=== PATIENT | female | born 1960 | race Caucasian/White ===

== ENCOUNTER 2016-04-25 19:43 | Inpatient (IN) | payer MEDICARE, MEDICAID ==
[~2016-04-25] VITALS: Ht 165.1 cm; Wt 100.0 kg
[2016-04-25 19:45] VITALS: Ht 165.1 cm; Wt 100.0 kg
[2016-04-25] MEDS ORDERED: ONDANSETRON 4 MG INJ IV STA (21:12)
[2016-04-25] MEDS ORDERED: HYDROmorphONE 1 MG/ML SYG IV STA ×2 (21:12→22:44)
[2016-04-25 21:48] LABS: BASOPHILS % 0.3 % (0.0-2.0); EOSINOPHILS # 0.1 10^3/ul (0.0-0.5); EOSINOPHILS % 1.1 % (0.0-7.0); HEMATOCRIT 29.9 % (37.0-47.0); LYMPHOCYTES # 2.4 10^3/ul (0.8-2.9); LYMPHOCYTES % 24.9 % (15.0-51.0); MEAN CORPUSCULAR HEMOGLOBIN 31.4 pg (29.0-33.0); MEAN CORPUSCULAR HGB CONC 33.6 g/dl (32.0-37.0); MEAN CORPUSCULAR VOLUME 93.4 fl (82.0-101.0); MEAN PLATELET VOLUME 7.9 fl (7.4-10.4); MONOCYTE # 0.7 10^3/ul (0.3-0.9); MONOCYTES % 7.1 % (0.0-11.0); NEUTROPHIL # 6.4 10^3/ul (1.6-7.5); NEUTROPHILS % 66.6 % (39.0-77.0); PLATELET COUNT 257 10^3/UL (140-440); RED CELL DISTRIBUTION WIDTH 15.1 % (11.5-14.5); UNCORRECTED WBC 9.6 10^3/ul (4.8-10.8); WHITE BLOOD COUNT 9.6 10^3/ul (4.8-10.8)
[2016-04-25 21:51] LABS: CONDITION 1; LH ANALYZER COMMENTS 1
[2016-04-25 22:02] LABS: CHLORIDE 104 mmol/L (97-110); SODIUM 139 mmol/L (135-144)
[2016-04-25 22:04] LABS: ALANINE AMINOTRANSFERASE 94 IU/L (13-69); ALKALINE PHOSPHATASE 157 IU/L (42-121); ANION GAP 14 (8-16); ASPARTATE AMINO TRANSFERASE 38 IU/L (15-46); BILIRUBIN,INDIRECT 0.5 mg/dl (0-1.1); BILIRUBIN,TOTAL 0.5 mg/dl (0.2-1.3); BLOOD UREA NITROGEN 23 mg/dl (7-20); CARBON DIOXIDE 25 mmol/L (21-31); CREATININE 0.79 mg/dl (0.44-1.00); TOTAL PROTEIN 8.4 g/dl (6.1-8.1)
[2016-04-25 22:05] LABS: CALCIUM 9.4 mg/dl (8.4-10.2); GLUCOSE 97 mg/dl (70-220); INR 1.27; PT RATIO 1.3
--- NOTE | 2016-04-25 22:08 | RADRPT ---
PROCEDURE: XR Chest. CLINICAL INDICATION: Abdominal pain. TECHNIQUE: AP portable views of the chest were obtained. COMPARISON: None available FINDINGS: The cardiomediastinal silhouette is within normal limits. There is mild atherosclerosis of the thora cic aorta without evidence of aneurysm formation. There are minimal linear areas of subsegmental at electasis in the right lung base. There is a right IJ Port-A-Cath in place with tip at the cavoatri al junction. No signs of pleural fluid or pneumothorax are seen. The osseous structures and soft tis sues are unremarkable. IMPRESSION: 1. No evidence for active cardiopulmonary disease. 2. Mild subsegmental atelectasis involving the right lung base. 3. Mild atherosclerosis of the thoracic aorta. RPTAT: HGAS .Hung Cuellar MD, Date Time Electronically viewed and signed by .Hung Cuellar MD, on 04/25/2016 22:07 .S/
[2016-04-25 22:18] LABS: TROPONIN-I < 0.012 ng/ml (0.00-0.12)
[2016-04-25] MEDS ORDERED: SOD CHLORIDE 0.9% 1,000 ML IV STA (22:27)
--- NOTE | 2016-04-25 22:29 | RADRPT ---
PROCEDURE: CT Abdomen and pelvis without contrast. CLINICAL INDICATION: Abdominal pain. TECHNIQUE: CT scan of the abdomen and pelvis was performed on the [employer] LightSpeDeep Driver 6 4 slice VCT scanner. Contiguous axial images using 2.5 mm slice thickness were obtained from the benja ng bases to the ischial tuberosities without intravenous contrast. Coronal and sagittal reformatted images were also obtained. Images were reviewed on the PACS workstation. One or more of the following dose reduction techniques were used: - Automated exposure control. - Adjustment of the mA and/or kV according to patient size. - Use of iterative reconstruction technique. Exam CTD/vol = 22.58 mGy. Total exam DLP = 1247.39 mGy-cm. COMPARISON: None. FINDINGS: Evaluation of the lung bases demonstrates multiple soft tissue nodules along the right hemidiaphragm measuring up to 2 cm. There is mild bibasilar atelectasis. Bilateral breast implants are present. Abdomen: The liver is normal in size. There is a poorly defined hypodense mass within the posterio r segment of the right lobe of the liver measuring 3.5 x 3.1 cm with extrahepatic extension measurin g 3.4 x 4.4 cm. There is no dilatation of the biliary tree. The patient is status post cholecystect dotty. There is a hypodense lesion within the medial spleen measuring 2.9 x 3.1 cm. There are multip le poorly defined masses within the gastrohepatic space with a cluster measuring 4.7 x 5.6 cm. Ther e is a mass within the lesser sac between the stomach and pancreas measuring 2.6 x 4.5 cm. There is a mass within the left pericolic gutter measuring 4.3 x 3.6 cm. The pancreas and bilateral adrenal glands are within normal limits. Bilateral kidneys are normal in size with no contour deforming ma ss identified. There is no radiopaque renal or ureteral calculus identified. There is no hydroneph rosis or hydroureter. The abdominal aorta is of normal caliber with mild scattered atherosclerotic calcifications. There is a moderate midline upper abdominal wall ventral hernia containing multiple loops of small b owel. There is no bowel obstruction or free air. The appendix is not visualized. There is no dive rticulosis or diverticulitis. There is no ascites. Pelvis: The bladder is unremarkable. The uterus is absent. There are multiple soft tissue masses within the pelvis with the largest measuring 4.7 x 3.5 cm. There is no significant pelvic adenopath y or free fluid. Evaluation of the osseous structures demonstrates no suspicious lytic or blastic lesion. IMPRESSION: Multiple soft tissue masses within the abdomen and pelvis consistent with metastatic disease. Soft tissue mass within the right upper abdomen involving the posterior segment of the right lobe of the liver. Multiple soft tissue nodules along the right hemidiaphragm consistent with metastatic disease. Hypodense mass within the spleen suspicious for metastatic disease. Moderate midline upper abdominal wall ventral hernia containing multiple loops of small bowel. Ther e is no bowel obstruction. Status post cholecystectomy. .Galileo Hammer MD, Date Time Electronically viewed and signed by .Galileo Hammer MD, MD on 04/25/2016 22:29 .T/
[2016-04-25] MEDS ORDERED: HYDROmorphONE 1 MG/ML SYG IV ONE (22:38)
--- NOTE | 2016-04-25 22:55 | ERA ---
ER Documentation Chief Complaint Date/Time DATE: 04/25/16 TIME: 22:52 Chief Complaint hx of colon ca, last 4 days feels perirectal pressure with rectal bleeding. HPI Patient is a 55-year-old female with ovarian cancer and hypertension who presents with "cancer". Patient has ovarian cancer and had found out a month ago that her cancer has spread. She has severe pain in her anus and stomach. She was told to go to the emergency department by Dr. Perez who is her oncologic surgeon. She has 2 hernias and says these are hurting. She wants to be admitted to the hospital. She has no treatment as of yet. Upon review of old medical records this is the patient's first visit to the emergency department here at [facility]. ROS All systems reviewed and are negative except as per history of present illness. Allergies Allergies: Coded Allergies: No Known Allergy (Unverified , 04/25/16) PMhx/Soc History of Surgery: Yes (OVARIAN AND COLON RESECTION) Anesthesia Reaction: No Hx Neurological Disorder: No Hx Respiratory Disorders: No Hx Cardiac Disorders: Yes (HTN) Hx Psychiatric Problems: No Hx Miscellaneous Medical Probl: Yes (OVARIAN CA WITH ABD AND KIDNEY METS) Hx Alcohol Use: No Hx Substance Use: No Hx Tobacco Use: No Smoking Status: Never smoker FmHx Family History: No diabetes Physical Exam Vitals Vital Signs Date Time Temp Pulse Resp B/P Pulse Ox O2 Delivery O2 Flow Rate FiO2 04/25/16 21:46 98.0 71 20 173/93 100 Room Air 04/25/16 19:45 98.2 78 26 183/79 99 Physical Exam Const: Moderate distress secondary to pain Head: Atraumatic Eyes: Normal Conjunctiva ENT: Normal External Ears, Nose and Mouth. Neck: Full range of motion..~ No meningismus. Resp: Clear to auscultation bilaterally Cardio: Regular rate and rhythm, no murmurs Abd: Diffuse abdominal pain with guarding Skin: No petechiae or rashes Back: No midline or flank tenderness Ext: No cyanosis, or edema Neur: Awake and alert Psych: Normal Mood and Affect Result Diagram: 04/25/16213204/25/162132 Results 24 hrs Laboratory Tests Test 04/25/16 21:33 Activated Partial Thromboplast Time 36.0Sec Alanine Aminotransferase (ALT/SGPT) 94IU/L Albumin 4.0g/dl Albumin/Globulin Ratio 0.90 Alkaline Phosphatase 157IU/L Anion Gap 14 Aspartate Amino Transf (AST/SGOT) 38IU/L Basophils # 0.010^3/ul Basophils % 0.3% Blood Morphology Comment Blood Urea Nitrogen 23mg/dl Calcium Level 9.4mg/dl Carbon Dioxide Level 25mmol/L Chloride Level 104mmol/L Creatinine 0.79mg/dl Direct Bilirubin 0.00mg/dl Eosinophils # 0.110^3/ul Eosinophils % 1.1% Globulin 4.40g/dl Glucose Level 97mg/dl Hematocrit 29.9% Hemoglobin 10.0g/dl INR International Normalized Ratio 1.27 Indirect Bilirubin 0.5mg/dl Lipase 105U/L Lymphocytes # 2.410^3/ul Lymphocytes % 24.9% Mean Corpuscular Hemoglobin 31.4pg Mean Corpuscular Hemoglobin Concent 33.6g/dl Mean Corpuscular Volume 93.4fl Mean Platelet Volume 7.9fl Monocytes # 0.710^3/ul Monocytes % 7.1% Neutrophils # 6.410^3/ul Neutrophils % 66.6% Nucleated Red Blood Cells # 0.010^3/ul Nucleated Red Blood Cells % 0.0/100WBC Platelet Count 01656^3/UL Potassium Level 4.0mmol/L Prothrombin Time 16.0Sec Prothrombin Time Ratio 1.3 Red Blood Count 3.2010^6/ul Red Cell Distribution Width 15.1% Sodium Level 139mmol/L Total Bilirubin 0.5mg/dl Total Protein 8.4g/dl Troponin I < 0.012ng/ml White Blood Count 9.610^3/ul Current Medications Medications (Trade) Dose Ordered Sig/Tanya Route PRN Reason Start Time Stop Time Status Last Admin Dose Admin Hydromorphone HCl (Dilaudid) 1 mg ONCE STAT IV 04/25/16 21:12 04/25/16 21:13 DC 04/25/16 21:28 Ondansetron HCl 4 mg 4 mg ONCE STAT IV 04/25/16 21:12 04/25/16 21:13 DC 04/25/16 21:28 Sodium Chloride (NS) 1,000 ml @ 1,000 mls/hr Q1H STAT IV 04/25/16 22:27 04/25/16 23:26 Hydromorphone HCl (Dilaudid) 1 mg ONCE ONCE IV 04/25/16 22:38 04/25/16 22:39 DC 04/25/16 22:49 Ondansetron HCl (Zofran Inj) 4 mg BRIDGE ORDER PRN IV NAUSEA AND/OR VOMITING 04/25/16 23:00 04/26/16 22:59 Acetaminophen (Tylenol Tab) 650 mg ER BRIDGE PRN PO MILD PAIN/FEVER 04/25/16 23:00 04/26/16 22:59 Hydromorphone HCl (Dilaudid) 1 mg ONCE STAT IV 04/25/16 22:44 04/25/16 22:45 DC Procedures/MDM CT scan shows no signs of obstruction per radiology. Patient is a 55-year-old female with ovarian cancer and hypertension who presents with abdominal pain. At this point she has intractable abdominal pain and has required 2 doses of Dilaudid as well as Zofran. I believe admission to the hospital is appropriate and an observation admission would be a good start. The patient will be admitted to the care of Dr. Shaw and Dr. Perez will see the patient in consultation. The patient will be admitted to a medical surgical bed. The patient was given 1 L normal saline bolus for dehydration as her BUN/creatinine ratio is greater than 20. Departure Diagnosis: Primary Impression: Abdominal pain Qualified Code: R10.84 - Generalized abdominal pain Additional Impression: Dehydration Condition: CUCO Zambrano MD Apr 25, 2016 22:55
[2016-04-25] MEDS ORDERED: ONDANSETRON 4 MG INJ IV PRN (23:00)
[2016-04-25] MEDS ORDERED: ACETAMINOPHEN 325 MG TAB PO PRN (23:00)
[2016-04-25 23:47] VITALS: TEMP 98.2
[2016-04-26] VITALS: BP 146/75; PULSE 76; RESP 17
[2016-04-26] MEDS ORDERED: HYDROCODONE/APAP (5/325) TAB PO PRN
[2016-04-26] MEDS ORDERED: ZOLPIDEM 5 MG TAB PO PRN
[2016-04-26] MEDS ORDERED: ONDANSETRON 4 MG INJ IV PRN
[2016-04-26] MEDS ORDERED: DOCUSATE SODIUM 100 MG CAP PO PRN
[2016-04-26] MEDS ORDERED: ACETAMINOPHEN 325 MG TAB PO PRN
[2016-04-26] MEDS ORDERED: COU1 PO (00:18)
[2016-04-26] MEDS ORDERED: ATEN50TA PO (00:18)
[2016-04-26] MEDS: morphine 2 MG INJ IV PRN ×2 (00:52→04:46)
[2016-04-26] MEDS: NACL 0.9% 3 ML SYG IV SCH (00:54)
[2016-04-26] MEDS: D5W-0.45 NACL + KCL 20 MEQ 1,000 ML IV SCH ×4 (01:37→20:38)
[2016-04-26 06:16] LABS: BASOPHILS % 0.4 % (0.0-2.0); EOSINOPHILS # 0.1 10^3/ul (0.0-0.5); EOSINOPHILS % 1.3 % (0.0-7.0); HEMATOCRIT 27.5 % (37.0-47.0); HEMOGLOBIN 9.4 g/dl (12.0-16.0); LYMPHOCYTES # 1.6 10^3/ul (0.8-2.9); LYMPHOCYTES % 20.9 % (15.0-51.0); MEAN CORPUSCULAR HEMOGLOBIN 31.8 pg (29.0-33.0); MEAN CORPUSCULAR VOLUME 93.6 fl (82.0-101.0); MEAN PLATELET VOLUME 8.3 fl (7.4-10.4); MONOCYTE # 0.6 10^3/ul (0.3-0.9); MONOCYTES % 7.7 % (0.0-11.0); NEUTROPHIL # 5.4 10^3/ul (1.6-7.5); NEUTROPHILS % 69.7 % (39.0-77.0); PLATELET COUNT 208 10^3/UL (140-440); RED BLOOD COUNT 2.94 10^6/ul (4.20-5.40); RED CELL DISTRIBUTION WIDTH 14.6 % (11.5-14.5); UNCORRECTED WBC 7.7 10^3/ul (4.8-10.8); WHITE BLOOD COUNT 7.7 10^3/ul (4.8-10.8)
[2016-04-26] MEDS ORDERED: MAGNESIUM HYDROXIDE 30ML CUP PO PRN (06:30)
[2016-04-26 06:38] LABS: CONDITION 1; LH ANALYZER COMMENTS 1
[2016-04-26 06:50] LABS: CREATININE 0.71 mg/dl (0.44-1.00)
[2016-04-26 06:51] LABS: CALCIUM 8.8 mg/dl (8.4-10.2); MAGNESIUM 1.6 mg/dl (1.7-2.5)
--- NOTE | 2016-04-26 07:13 | HP ---
DATE OF ADMISSION: 04/25/2016 DATE: 04/26/2016 TIME: 6:00 a.m. CHIEF COMPLAINT: Abdominal pain and back pain. HISTORY OF PRESENT ILLNESS: The patient is a 55-year-old female with a known history of ovarian can cer diagnosed in 2013. The patient is status post total abdominal hysterectomy and debulking surger y as well as multiple rounds of chemotherapy. The patient stopped chemotherapy 2 months ago and was being monitored and apparently has new metastasis in the abdomen. The patient is unsure where exac tly the mets are to but believes it is to the colon, possibly the kidneys. The patient follows up with Dr. Perez, who has been planning on surgical intervention in the near future, but because of her persistent abdominal pain, recommendation was for admission and likely surgery during this admi ssion. The patient's main complaint at this time is pain in her belly and back as well as constipat ion. The patient also has a history of hypertension and has had several blood clots and has been on Coumadin for that. PAST MEDICAL HISTORY: 1. Brain cancer diagnosed in 2013, status post total abdominal hysterectomy and debulking surgery a s well as chemotherapy. 2. Hypertension diagnosed approximately a year ago on atenolol. 3. Blood clots x2 on Coumadin. PAST SURGICAL HISTORY: Notable for total abdominal hysterectomy and debulking surgery 2013 as well as breast augmentation. HOME MEDICATIONS 1. Atenolol. 2. Coumadin. 3. Ibuprofen. 4. Tramadol. ALLERGIES: NO KNOWN DRUG ALLERGIES. FAMILY HISTORY: Denies. SOCIAL HISTORY: Denies any alcohol, tobacco, or drug abuse. REVIEW OF SYSTEMS: A 12-point review of systems negative except that stated in HPI. PHYSICAL EXAMINATION: VITAL SIGNS: Temperature is 98.0, pulse 76, respiratory rate 17, BP is 146/75. saturation 97% on room air. GENERAL: No acute distress, alert and oriented. HEENT: Normocephalic, atraumatic. LUNGS: Clear to auscultation. CARDIOVASCULAR: Regular rate and rhythm. ABDOMEN: Mild tenderness to palpation, soft, nondistended. EXTREMITIES: No clubbing, cyanosis, or edema. LABORATORIES: White count 9.6, hemoglobin 7.0, platelets are 257. Chemistry within normal limits e xcept for BUN slightly elevated at 23, alkaline phosphatase 157, ALT is 94. INR is 1.27. DIAGNOSTICS: Chest x-ray shows no evidence of active cardiopulmonary disease. There is mild atelec tasis involving the right lung base, small atherosclerosis of the thoracic aorta. Abdominal pelvis CT shows multiple soft tissue masses within the abdomen and pelvis, consistent with metastatic disea se, soft tissue mass within the right upper abdomen involving the posterior segment of the right lob e of the liver, multiple soft tissue nodules along the right hemidiaphragm consistent with metastati c disease, hyperdense mass suspicious for metastatic disease. Abdominal wall ventral hernia contain ing multiple loops of small bowel, no bowel obstruction, status post cholecystectomy. ASSESSMENT AND PLAN: 1. Metastatic ovarian cancer. The patient is noted to have multiple mets within the abdomen noted on CT. Dr. Perez is her BIOTECH PRODUCTION SPECIALIST/ONC surgeon and is planning on surgical intervention during this hos pitalization. Of note, the patient is status post total abdominal hysterectomy and debulking surger y in 2013 as well as chemotherapy. We will follow up with Dr. Perez's recommendations. Will kristina at pain with morphine as needed. 2. Constipation. Will treat with Colace and milk of magnesia. 3. Hypertension. Continue the patient's home atenolol. 4. History of deep venous thrombosis. Will hold patient's INR at this time secondary to imminent s urgery. 5. Normocytic anemia likely secondary to anemia of chronic disease. Will monitor. 6. Prophylaxis with SCDs. Dictated By: CIPRIANO MELVIN MD BS/NTS Conf#: [id number] DID#: [id number]
[2016-04-26 08:05] VITALS: BP 140/63; RESP 16
[2016-04-26] MEDS: DOCUSATE SODIUM 100 MG CAP PO SCH ×2 (09:04→20:37)
[2016-04-26] MEDS: SENNA TAB PO SCH ×2 (09:05→20:38)
[2016-04-26] MEDS: ATENOLOL 50 MG TAB PO SCH (09:05)
[2016-04-26] MEDS: morphine 4 MG/ML VIAL IV PRN ×2 (09:14→17:50)
--- NOTE | 2016-04-26 11:24 | CONS ---
Date/Time of Note Date/Time of Note DATE: 04/26/16 TIME: 11:08 Consultation Date/Type/Reason Admit Date/Time Apr 25, 2016 at 22:42 Date of Consultation: Apr 26, 2016 Hx of Present Illness Brigido Villanueva M.D.. 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 She had a recurrence with SecCrs and salage chemotherapy but now has a probable recurrence, incisional hernia and increased pain with suggestion of possible early SBO as she has had had intermittent symptoms 1-2 mo. She had a DVT rx'd with coumadin approximately 8 months.. Medical history/ROS: all other systems unremarkable. Surgical: Primary cytoreduction Medications: 09/24/14 Ativan 1 mg tablet 1 tab po q6hrs prn SEVERE nausea or anxiety only 10/09/14 Coumadin 10 mg tablet 1 tablet by mouth DAILY as directed 07/31/14 Coumadin 2 mg tablet 1 tablet by mouth DAILY 07/27/14 Coumadin 5 mg tablet 1 tablet by mouth DAILY 08/27/14 Coumadin 6 mg tablet 1 tablet by mouth DAILY 08/19/14 Coumadin 7.5 mg tablet 1 tablet by mouth DAILY 01/08/15 Diflucan 150 mg tablet 1 tablet by mouth DAILY 01/08/15 Keflex 500 mg tablet 1 capsule by mouth BID 10/27/14 Neupogen 480 mcg/0.8 mL injection syringe 1 injection subq x daily x 3 days 24 hours post ch 08/12/14 Proctozone-HC 2.5 % rectal cream 1 gm in the rectum DAILY prn 12/17/14 tramadol 50 mg tablet TAKE 2 TABLETS BY MOUTH EVERY 6 HOURS NEEDED 09/24/14 Zofran 8 mg tablet 1 tab po tid x3 days after chemo and 1 q 4-6hrs pr Allergies: 11/17/13 No Known Drug Allergies Family History: Noncontributory Social History: Noncontributory Review of Systems: Negative except for above noted Physical Examination General: Alert. HEENT: Pupils are equal, round, reactive to light and accommodation. Neck: Supple with no masses of lymphadenopathy. Breast: Deferred due to recent examination and responsibility of primary care physician. Chest: Clear to auscultation and percussion with no rales, ronchi, or wheeze. Heart: Normal rhythm with no murmur. Abdominal exam: probable incisional hernia, tender, nondistended, no masses, no ascites. location: N/A Pelvic exam: no masses or cul-de-sac nodularity noted Rectal: confirmatory with pelvic exam. Neurological: Grossly intact Assessment: Ovarian cancer with hernia and possible SBO and almost definite recurrence. Plan: Admited and evaluate for SBO probable secondary CRS surgery. Consider whether anticoagulation is needed as it has been 8 months and if so whether IVC filter is needed pre op. Brigido Villanueva M.D. Social History Smoking Status: Never smoker Exam/Review of Systems Vital Signs Vitals Vital Signs Date Time Temp Pulse Resp B/P Pulse Ox O2 Delivery O2 Flow Rate FiO2 04/26/16 08:05 98.1 68 16 140/63 95 04/26/16 00:00 Room Air Results Result Diagram: 04/26/16 0444 04/26/16 0444 Results 24 hrs Laboratory Tests Test 04/25/16 21:33 04/26/16 04:44 Activated Partial Thromboplast Time 36.0 H Alanine Aminotransferase (ALT/SGPT) 94 H Albumin 4.0 Albumin/Globulin Ratio 0.90 Alkaline Phosphatase 157 H Anion Gap 14 16 Aspartate Amino Transf (AST/SGOT) 38 Basophils # 0.0 0.0 Basophils % 0.3 0.4 Blood Morphology Comment Blood Urea Nitrogen 23 H 18 Calcium Level 9.4 8.8 Carbon Dioxide Level 25 25 Chloride Level 104 103 Creatinine 0.79 0.71 Direct Bilirubin 0.00 Eosinophils # 0.1 0.1 Eosinophils % 1.1 1.3 Globulin 4.40 H Glucose Level 97 106 Hematocrit 29.9 L 27.5 L Hemoglobin 10.0 L 9.4 L INR International Normalized Ratio 1.27 Indirect Bilirubin 0.5 Lipase 105 Lymphocytes # 2.4 1.6 Lymphocytes % 24.9 20.9 Mean Corpuscular Hemoglobin 31.4 31.8 Mean Corpuscular Hemoglobin Concent 33.6 34.0 Mean Corpuscular Volume 93.4 93.6 Mean Platelet Volume 7.9 8.3 Monocytes # 0.7 0.6 Monocytes % 7.1 7.7 Neutrophils # 6.4 5.4 Neutrophils % 66.6 69.7 Nucleated Red Blood Cells # 0.0 0.0 Nucleated Red Blood Cells % 0.0 0.0 Platelet Count 257 208 Potassium Level 4.0 4.0 Prothrombin Time 16.0 H Prothrombin Time Ratio 1.3 Red Blood Count 3.20 L 2.94 L Red Cell Distribution Width 15.1 H 14.6 H Sodium Level 139 140 Total Bilirubin 0.5 Total Protein 8.4 H Troponin I < 0.012 White Blood Count 9.6 7.7 Magnesium Level 1.6 L Medications Medications Current Medications Potassium Chloride/Dextrose/ Sod Cl (D5-1/2ns + KCl 20 Meq) 1,000 ml @ 100 mls/ hr Q10H IV Last administered on 04/26/16 01:37; Admin Dose 100 MLS/HR; Start at 23:44 Ondansetron HCl (Zofran Inj) 4 mg Q6H PRN IV NAUSEA AND/OR VOMITING; Start 04/26 at 00:00 Acetaminophen (Tylenol Tab) 650 mg Q6H PRN PO PAIN LEVEL 1-3 OR FEVER; Start at 00:00 Acetaminophen/ Hydrocodone Bitart ([place] (5/325)) 1 tab Q6H PRN PO MODERATE PAIN LEVEL 4-6; Start 04/26/16 at 00:00 Docusate Sodium (Colace) 100 mg Q12H PRN PO CONSTIPATION Last administered on 04:48; Admin Dose 100 MG; Start 04/26/16 at 00:00 Zolpidem Tartrate (Ambien) 5 mg QHS PRN PO SLEEP; Start 04/26/16 at 00:00 Morphine Sulfate (morphine) 4 mg Q2H PRN IV SEVERE PAIN LEVEL 7-10 Last administered on 04/26/16 09:14; Admin Dose 4 MG; Start 04/26/16 at 06:24 Docusate Sodium (Colace) 100 mg BID PO Last administered on 04/26/16 09:04; Admin Dose 100 MG; Start 04/26/16 at 09:00 Magnesium Hydroxide (Milk Of Mag) 30 ml DAILY PRN PO CONSTIPATION; Start at 06:30 Senna (Senokot) 1 tab BID PO Last administered on 04/26/16 09:05; Admin Dose 1 TAB; Start 04/26/16 at 09:00 Atenolol 50 mg 50 mg DAILY PO Last administered on 04/26/16 09:05; Admin Dose 50 MG; Start 04/26/16 at 09:00 Magnesium Sulfate (Magnesium Sulfate 2 Gm/50 ml) 50 ml @ 25 mls/hr ONCE ONCE IVPB ; Start 04/26/16 at 13:00; Stop 04/26/16 at 14:59 Hydralazine HCl (Apresoline) 10 mg Q6H PRN IV SBP>160; Start 04/26/16 at 11:00 Warfarin Sodium (Coumadin) 6 mg DAILY@17 PO ; Start 04/26/16 at 17:00; Status UNV BRIGIDO VILLANUEVA MD Apr 26, 2016 11:23
[2016-04-26] MEDS ORDERED: MAGNESIUM SULFATE 2 GM/50 ML 50 ML IVPB ONE (13:00)
--- NOTE | 2016-04-26 14:59 | QN ---
Documentation Comment Reviewed labs. Dosed warfarin. Plan of care was explained to the patient. Case discussed with Dr. Banegas. JADEN COFFEY NP Apr 26, 2016 14:59
[2016-04-26] MEDS ORDERED: WARFARIN 3 MG TAB PO SCH (17:00)
[2016-04-26 21:16] VITALS: BP 125/58; RESP 21
[2016-04-27 00:14] VITALS: BP 145/71
[2016-04-27] MEDS: morphine 4 MG/ML VIAL IV PRN ×3 (04:52→22:32)
[2016-04-27 05:23] LABS: BASOPHILS % 0.4 % (0.0-2.0); EOSINOPHILS # 0.1 10^3/ul (0.0-0.5); EOSINOPHILS % 1.7 % (0.0-7.0); HEMATOCRIT 26.9 % (37.0-47.0); HEMOGLOBIN 9.1 g/dl (12.0-16.0); LYMPHOCYTES # 1.7 10^3/ul (0.8-2.9); LYMPHOCYTES % 22.9 % (15.0-51.0); MEAN CORPUSCULAR HEMOGLOBIN 31.6 pg (29.0-33.0); MEAN CORPUSCULAR HGB CONC 33.7 g/dl (32.0-37.0); MEAN CORPUSCULAR VOLUME 93.9 fl (82.0-101.0); MEAN PLATELET VOLUME 8.2 fl (7.4-10.4); MONOCYTE # 0.6 10^3/ul (0.3-0.9); MONOCYTES % 8.5 % (0.0-11.0); NEUTROPHILS % 66.5 % (39.0-77.0); PLATELET COUNT 214 10^3/UL (140-440); RED BLOOD COUNT 2.87 10^6/ul (4.20-5.40); RED CELL DISTRIBUTION WIDTH 14.6 % (11.5-14.5); UNCORRECTED WBC 7.5 10^3/ul (4.8-10.8); WHITE BLOOD COUNT 7.5 10^3/ul (4.8-10.8)
[2016-04-27 05:29] LABS: CONDITION 1; LH ANALYZER COMMENTS 1
[2016-04-27 05:39] LABS: CHOL/HDL RATIO 5.7 RATIO; MAGNESIUM 1.8 mg/dl (1.7-2.5)
[2016-04-27] MEDS: D5W-0.45 NACL + KCL 20 MEQ 1,000 ML IV SCH ×2 (05:44→10:10)
[2016-04-27 05:51] LABS: ALBUMIN 3.5 g/dl (3.3-4.9); POTASSIUM 4.3 mmol/L (3.5-5.1)
[2016-04-27 05:53] LABS: CREATININE 0.76 mg/dl (0.44-1.00)
[2016-04-27 05:54] LABS: ALBUMIN/GLOBULIN RATIO 0.87; BILIRUBIN,INDIRECT 0.8 mg/dl (0-1.1); BILIRUBIN,TOTAL 0.8 mg/dl (0.2-1.3); TOTAL PROTEIN 7.5 g/dl (6.1-8.1)
[2016-04-27 06:07] LABS: THYROID STIMULATING HORMONE 1.35 MIU/L (0.465-4.680)
[2016-04-27 07:45] VITALS: BP 122/58; RESP 16
[2016-04-27] MEDS ORDERED: ENOXAPARIN 40 MG/0.4 ML SYG SC SCH (09:00)
[2016-04-27] MEDS: SENNA TAB PO SCH ×2 (09:25→21:16)
[2016-04-27] MEDS: DOCUSATE SODIUM 100 MG CAP PO SCH ×2 (09:25→21:16)
[2016-04-27] MEDS: ATENOLOL 50 MG TAB PO SCH (09:27)
--- NOTE | 2016-04-27 09:54 | PN ---
DATE: 04/27/2016 SUBJECTIVE DATA: Denies any abdominal pain at this time. The patient verbalized abdominal pain comes as episodes. The patient getting IV pain medications. OBJECTIVE DATA: VITAL SIGNS: Temperature 98.1, pulse rate 59, respiratory rate 16, blood pressure 122/58, oxygen saturation 94% on room air. GENERAL: This is an obese female lying in bed in no apparent distress. HEENT: Head normocephalic and atraumatic. Eyes: Anicteric sclerae. Conjunctivae clear. ENT: Nasal septum is midline. Oral mucosa is moist. NECK: Supple. No JVD noticed. RESPIRATORY: Bilaterally clear to auscultation. No adventitious breath sounds. No use of accessory muscles of respiration. CARDIAC: Regular rate and rhythm. No murmurs. ABDOMEN: Soft. Surgical scar from prior surgery. Maggie-incisional hernia. Diffuse tenderness. Bowel sounds hypoactive in all 4 quadrants. GENITOURINARY: Deferred. EXTREMITIES: No cyanosis, no clubbing, no edema. Peripheral pulses are palpable. NEUROLOGIC: The patient is awake, alert and oriented. Cranial nerves are grossly intact. LABORATORY AND DIAGNOSTIC DATA: WBC 7.5, hemoglobin 9.1, hematocrit 26.9, platelet count 214. Sodium 140, potassium 4.3, chloride 106, carbon dioxide 26 , anion gap 12, BUN 12, creatinine 0.7, glucose 96, calcium 9.0, AST 43, ALT 102 , alkaline phosphatase 153. ASSESSMENT AND PLAN: 1. Metastatic ovarian cancer. Currently, admitted for abdominal pain. CT scan showing multiple soft tissue masses within the abdomen and pelvis, consistent with metastatic disease. The CT scan also revealed moderate midline upper wall ventral hernia containing multiple loops of small bowel with no evidence of small bowel obstruction. The patient is being followed by [facility]/Onc. Plan for surgical intervention. Continue pain control. 2. History of left lower extremity deep venous thrombosis. The patient is currently on Coumadin. INR subtherapeutic. The patient's DVT was diagnosed approximately 8 months ago. Will repeat a bilateral lower extremity venous Doppler study. Will hold Coumadin at this time because of the need for surgical intervention. If the patient's bilateral lower extremity venous Doppler study is negative for DVT, will discontinue therapeutic anticoagulation. If the patient is positive for DVT, the patient may need IVC filter prior to surgical intervention. 3. Normocytic normochromic anemia. Will monitor the H and H closely. Will obtain an iron panel. 4. Transaminitis without hyperbilirubinemia. Etiology unclear. Will monitor the LFTs closely. Will avoid any hepatotoxic medications. 5. Essential hypertension. Continue antihypertensives. Blood pressure fairly well controlled. 6. Fluid, electrolytes, and nutrition. Clear liquid diet as per [facility]/Onc. 7. Deep venous thrombosis prophylaxis. Subcutaneous Lovenox. 8. Gastrointestinal prophylaxis. Histamine 2 receptor blockers. 9. Continue pain control. Obtain a bilateral lower extremity venous Doppler study. Hold warfarin. Case discussed with Dr. Banegas. JADEN BANEGAS MD AM/NTS Conf#: [id number] DID#: [id number] ELIEL
[2016-04-27] MEDS: FAMOTIDINE 20 MG INJ IV SCH ×2 (10:09→21:16)
--- NOTE | 2016-04-27 10:31 | RADRPT ---
PROCEDURE: US DVT. CLINICAL INDICATION: History of lower extremity edema TECHNIQUE: Multiple longitudinal and transverse images of the bilateral lower extremity veins were obtained with borden scale and color Doppler imaging. 2D grayscale measurements with compression, co ruth Doppler flow, and augmentation was performed. The calf veins were interrogated as well. COMPARISON: No prior studies are available for comparison. FINDINGS: The bilateral common femoral, superficial femoral and popliteal veins are normally compressible thro ughout. Color flow demonstrates normal filling of the vessel. Normal waveforms are visualized and there is normal response to augmentation. The calf veins are visualized and are equally unremarkabl e. IMPRESSION: 1. No evidence of a deep vein thrombosis involving either lower extremity. RPTAT: AACC Physician Arnaldo Date Time Electronically viewed and signed by Physician Arnaldo on 04/27/2016 10:31 /
[2016-04-27 10:38] LABS: IRON 44 ug/dl (35-150)
[2016-04-27 10:48] LABS: TOTAL IRON BINDING CAPACITY 256 ug/dl (241-421)
[2016-04-27] MEDS ORDERED: PEG/ELECTROLYTES 4L BTL PO ONE (13:30)
--- NOTE | 2016-04-27 18:24 | CONS ---
Date/Time of Note Date/Time of Note DATE: 04/27/16 TIME: 18:21 Assessment/Plan Assessment/Plan Chief Complaint/Hosp Course Brigido Villanueva M.D.. 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 She had a recurrence with SecCrs and salage chemotherapy but now has a probable recurrence, incisional hernia and increased pain with suggestion of possible early SBO as she has had had intermittent symptoms 1-2 mo. She had a DVT rx'd with coumadin approximately 8 months.. Medical history/ROS: all other systems unremarkable. Surgical: Primary cytoreduction Medications: 09/24/14 Ativan 1 mg tablet 1 tab po q6hrs prn SEVERE nausea or anxiety only 10/09/14 Coumadin 10 mg tablet 1 tablet by mouth DAILY as directed 07/31/14 Coumadin 2 mg tablet 1 tablet by mouth DAILY 07/27/14 Coumadin 5 mg tablet 1 tablet by mouth DAILY 08/27/14 Coumadin 6 mg tablet 1 tablet by mouth DAILY 08/19/14 Coumadin 7.5 mg tablet 1 tablet by mouth DAILY 01/08/15 Diflucan 150 mg tablet 1 tablet by mouth DAILY 01/08/15 Keflex 500 mg tablet 1 capsule by mouth BID 10/27/14 Neupogen 480 mcg/0.8 mL injection syringe 1 injection subq x daily x 3 days 24 hours post ch 08/12/14 Proctozone-HC 2.5 % rectal cream 1 gm in the rectum DAILY prn 12/17/14 tramadol 50 mg tablet TAKE 2 TABLETS BY MOUTH EVERY 6 HOURS NEEDED 09/24/14 Zofran 8 mg tablet 1 tab po tid x3 days after chemo and 1 q 4-6hrs pr Allergies: 11/17/13 No Known Drug Allergies Family History: Noncontributory Social History: Noncontributory Review of Systems: Negative except for above noted Physical Examination General: Alert. HEENT: Pupils are equal, round, reactive to light and accommodation. Neck: Supple with no masses of lymphadenopathy. Breast: Deferred due to recent examination and responsibility of primary care physician. Chest: Clear to auscultation and percussion with no rales, ronchi, or wheeze. Heart: Normal rhythm with no murmur. Abdominal exam: probable incisional hernia, tender, nondistended, no masses, no ascites. location: N/A Pelvic exam: no masses or cul-de-sac nodularity noted Rectal: confirmatory with pelvic exam. Neurological: Grossly intact Assessment: Ovarian cancer with hernia and possible SBO and almost definite recurrence. Plan: Admited and evaluate for SBO probable secondary CRS surgery. Consider whether anticoagulation is needed as it has been 8 months and if so whether IVC filter is needed pre op. Brigido Villanueva M.D. Problems: Consultation Date/Type/Reason Admit Date/Time Apr 26, 2016 at 14:08 Initial Consult Date 04/26/16 24 HR Interval Summary Free Text/Dictation S- Feels about the same, tolerating the bowel prep marginally O- Resp- clear CVS- nsr Abd- unchanged Ext: Nt no edema A- results of Doppler noted and appreciated. P- Proceeding with bowel prep and sufgery tomorrow about noon . Exam/Review of Systems Vital Signs Vitals Vital Signs Date Time Temp Pulse Resp B/P Pulse Ox O2 Delivery O2 Flow Rate FiO2 04/27/16 07:45 98.1 59 16 122/58 95 04/26/16 00:00 Room Air Intake and Output 04/26/16 04/26/16 04/27/16 15:00 23:00 07:00 Intake Total 400 ml 1200 ml 900 ml Balance 400 ml 1200 ml 900 ml Results Result Diagram: 04/27/16 0458 04/27/16 0458 Results 24 hrs Laboratory Tests Test 04/27/16 04:58 Alanine Aminotransferase (ALT/SGPT) 102 H Albumin 3.5 Albumin/Globulin Ratio 0.87 Alkaline Phosphatase 153 H Anion Gap 12 Aspartate Amino Transf (AST/SGOT) 43 Basophils # 0.0 Basophils % 0.4 Blood Morphology Comment Blood Urea Nitrogen 12 Calcium Level 9.0 Carbon Dioxide Level 26 Chloride Level 106 Cholesterol Level 154 Cholesterol/HDL Ratio 5.7 Creatinine 0.76 Direct Bilirubin 0.00 Eosinophils # 0.1 Eosinophils % 1.7 Ferritin 233.0 Free Thyroxine 1.33 Globulin 4.00 H Glucose Level 96 HDL Cholesterol 27 L Hematocrit 26.9 L Hemoglobin 9.1 L Hemoglobin A1c 5.4 Indirect Bilirubin 0.8 Iron Level 44 LDL Cholesterol, Calculated 104 Lymphocytes # 1.7 Lymphocytes % 22.9 Magnesium Level 1.8 Mean Corpuscular Hemoglobin 31.6 Mean Corpuscular Hemoglobin Concent 33.7 Mean Corpuscular Volume 93.9 Mean Platelet Volume 8.2 Monocytes # 0.6 Monocytes % 8.5 Neutrophils # 5.0 Neutrophils % 66.5 Nucleated Red Blood Cells # 0.0 Nucleated Red Blood Cells % 0.0 Percent Iron Saturation 17 L Phosphorus Level 4.0 Platelet Count 214 Potassium Level 4.3 Red Blood Count 2.87 L Red Cell Distribution Width 14.6 H Sodium Level 140 Thyroid Stimulating Hormone (TSH) 1.350 Total Bilirubin 0.8 Total Iron Binding Capacity 256 Total Protein 7.5 Triglycerides Level 113 White Blood Count 7.5 Medications Medications Current Medications Potassium Chloride/Dextrose/ Sod Cl (D5-1/2ns + KCl 20 Meq) 1,000 ml @ 100 mls/ hr Q10H IV Last administered on 04/27/16 10:10; Admin Dose 100 MLS/HR; Start at 23:44 Ondansetron HCl (Zofran Inj) 4 mg Q6H PRN IV NAUSEA AND/OR VOMITING Last administered on 04/27/16 14:28; Admin Dose 4 MG; Start 04/26/16 at 00:00 Acetaminophen (Tylenol Tab) 650 mg Q6H PRN PO PAIN LEVEL 1-3 OR FEVER; Start at 00:00 Acetaminophen/ Hydrocodone Bitart ([place] (5/325)) 1 tab Q6H PRN PO MODERATE PAIN LEVEL 4-6; Start 04/26/16 at 00:00 Docusate Sodium (Colace) 100 mg Q12H PRN PO CONSTIPATION Last administered on 04:48; Admin Dose 100 MG; Start 04/26/16 at 00:00 Zolpidem Tartrate (Ambien) 5 mg QHS PRN PO SLEEP; Start 04/26/16 at 00:00 Morphine Sulfate (morphine) 4 mg Q2H PRN IV SEVERE PAIN LEVEL 7-10 Last administered on 04/27/16 14:29; Admin Dose 4 MG; Start 04/26/16 at 06:24 Docusate Sodium (Colace) 100 mg BID PO Last administered on 04/27/16 09:25; Admin Dose 100 MG; Start 04/26/16 at 09:00 Magnesium Hydroxide (Milk Of Mag) 30 ml DAILY PRN PO CONSTIPATION; Start at 06:30 Senna (Senokot) 1 tab BID PO Last administered on 04/27/16 09:25; Admin Dose 1 TAB; Start 04/26/16 at 09:00 Atenolol (Tenormin) 50 mg DAILY PO Last administered on 04/27/16 09:27; Admin Dose 50 MG; Start 04/26/16 at 09:00 Hydralazine HCl (Apresoline) 10 mg Q6H PRN IV SBP>160; Start 04/26/16 at 11:00 Famotidine (Pepcid Iv) 20 mg BID IV Last administered on 04/27/16 10:09; Admin Dose 20 MG; Start 04/27/16 at 10:00 BRIGIDO VILLANUEVA MD Apr 27, 2016 18:24
[2016-04-27 19:52] VITALS: BP 177/82; RESP 21
[2016-04-27] MEDS ORDERED: VITAMIN A & D 5 GM OINT PACKET TOP ONE (22:02)
[2016-04-28] VITALS (31 sets, daily range): BP systolic 97–168; BP diastolic 60–86; PULSE 72–111; RESP 11–24
[2016-04-28] MEDS: morphine 4 MG/ML VIAL IV PRN ×3 (03:38→21:39)
[2016-04-28] MEDS: D5W-0.45 NACL + KCL 20 MEQ 1,000 ML IV SCH ×2 (03:38→11:44)
[2016-04-28 05:54] LABS: BASOPHILS % 0.3 % (0.0-2.0); EOSINOPHILS # 0.1 10^3/ul (0.0-0.5); EOSINOPHILS % 1.5 % (0.0-7.0); HEMATOCRIT 26.2 % (37.0-47.0); LYMPHOCYTES # 1.8 10^3/ul (0.8-2.9); MEAN CORPUSCULAR HEMOGLOBIN 32.1 pg (29.0-33.0); MEAN CORPUSCULAR HGB CONC 34.3 g/dl (32.0-37.0); MEAN CORPUSCULAR VOLUME 93.6 fl (82.0-101.0); MEAN PLATELET VOLUME 8.6 fl (7.4-10.4); MONOCYTE # 0.6 10^3/ul (0.3-0.9); MONOCYTES % 7.8 % (0.0-11.0); NEUTROPHIL # 4.7 10^3/ul (1.6-7.5); NEUTROPHILS % 65.4 % (39.0-77.0); PLATELET COUNT 196 10^3/UL (140-440); RED CELL DISTRIBUTION WIDTH 14.4 % (11.5-14.5); UNCORRECTED WBC 7.2 10^3/ul (4.8-10.8); WHITE BLOOD COUNT 7.2 10^3/ul (4.8-10.8)
[2016-04-28 05:58] LABS: ALBUMIN 3.2 g/dl (3.3-4.9); POTASSIUM 4.3 mmol/L (3.5-5.1)
[2016-04-28 05:59] LABS: CONDITION 1
[2016-04-28 05:59] LABS: PHOSPHORUS 4.1 mg/dl (2.5-4.9)
[2016-04-28 06:00] LABS: CREATININE 0.7 mg/dl (0.44-1.00); MAGNESIUM 1.6 mg/dl (1.7-2.5)
[2016-04-28 06:01] LABS: ALBUMIN/GLOBULIN RATIO 0.91; BILIRUBIN,INDIRECT 0.6 mg/dl (0-1.1); BILIRUBIN,TOTAL 0.6 mg/dl (0.2-1.3); CALCIUM 8.7 mg/dl (8.4-10.2); TOTAL PROTEIN 6.7 g/dl (6.1-8.1)
[2016-04-28] MEDS: DOCUSATE SODIUM 100 MG CAP PO SCH ×2 (09:00→21:00)
[2016-04-28] MEDS: SENNA TAB PO SCH ×2 (09:00→21:00)
[2016-04-28] MEDS: ATENOLOL 50 MG TAB PO SCH (09:00)
[2016-04-28] MEDS: FAMOTIDINE 20 MG INJ IV SCH ×2 (09:41→21:38)
[2016-04-28 09:50] LABS: INR 1.29; PROTIME 16.2 Sec (12.2-14.2); PT RATIO 1.3
--- NOTE | 2016-04-28 09:50 | PN ---
Date/Time of Note Date/Time of Note DATE: 04/28/16 TIME: 09:49 Assessment/Plan VTE Prophylaxis VTE Prophylaxis Intervention: SCD's Lines/Catheters IV [facility]from [facility] A CATH Assessment/Plan Assessment/Plan 1. Metastatic ovarian cancer. Currently, admitted for abdominal pain. CT scan showing multiple soft tissue masses within the abdomen and pelvis, consistent with metastatic disease. The CT scan also revealed moderate midline upper wall ventral hernia containing multiple loops of small bowel with no evidence of small bowel obstruction. The patient is being followed by [facility]/Onc. Plan for surgical intervention. Continue pain control. 2. History of left lower extremity deep venous thrombosis. The patient is currently on Coumadin. INR subtherapeutic. The patient's DVT was diagnosed approximately 8 months ago. Will repeat a bilateral lower extremity venous Doppler study. Will hold Coumadin at this time because of the need for surgical intervention. If the patient's bilateral lower extremity venous Doppler study is negative for DVT, will discontinue therapeutic anticoagulation. If the patient is positive for DVT, the patient may need IVC filter prior to surgical intervention. 3. Normocytic normochromic anemia. Will monitor the H and H closely. Will obtain an iron panel. 4. Transaminitis without hyperbilirubinemia. Etiology unclear. Will monitor the LFTs closely. Will avoid any hepatotoxic medications. 5. Essential hypertension. Continue antihypertensives. Blood pressure fairly well controlled. 6. Fluid, electrolytes, and nutrition. Clear liquid diet as per [facility]/Onc. 7. Deep venous thrombosis prophylaxis. Subcutaneous Lovenox. 8. Gastrointestinal prophylaxis. Histamine 2 receptor blockers. Dispo: Planned for surgery today. Subjective 24 Hr Interval Summary Free Text/Dictation Patient seen and examined. feels well, was just medicated for pain, planned for possible surgery today. Exam/Review of Systems Vital Signs Vitals Vital Signs Date Time Temp Pulse Resp B/P Pulse Ox O2 Delivery O2 Flow Rate FiO2 04/28/16 08:36 98.0 64 16 141/71 93 04/26/16 00:00 Room Air Intake and Output 04/27/16 04/27/16 04/28/16 15:00 23:00 07:00 Intake Total 1300 ml 1500 ml Balance 1300 ml 1500 ml Exam GENERAL: This is an obese female lying in bed in no apparent distress. HEENT: Head normocephalic and atraumatic. Eyes: Anicteric sclerae. Conjunctivae clear. ENT: Nasal septum is midline. Oral mucosa is moist. NECK: Supple. No JVD noticed. RESPIRATORY: Bilaterally clear to auscultation. No adventitious breath sounds. No use of accessory muscles of respiration. CARDIAC: Regular rate and rhythm. No murmurs. ABDOMEN: Soft. Surgical scar from prior surgery. Maggie-incisional hernia. Diffuse tenderness. Bowel sounds hypoactive in all 4 quadrants. GENITOURINARY: Deferred. EXTREMITIES: No cyanosis, no clubbing, no edema. Peripheral pulses are palpable. NEUROLOGIC: The patient is awake, alert and oriented. Cranial nerves are grossly intact. Results Result Diagram: 04/28/16 0445 04/28/16 0435 Results 24 hrs Laboratory Tests Test 04/28/16 04:35 04/28/16 04:45 Alanine Aminotransferase (ALT/SGPT) 93 H Albumin 3.2 L Albumin/Globulin Ratio 0.91 Alkaline Phosphatase 145 H Anion Gap 16 Aspartate Amino Transf (AST/SGOT) 35 Blood Urea Nitrogen 10 Calcium Level 8.7 Carbon Dioxide Level 23 Chloride Level 106 Creatinine 0.70 Direct Bilirubin 0.00 Globulin 3.50 H Glucose Level 94 Indirect Bilirubin 0.6 Magnesium Level 1.6 L Phosphorus Level 4.1 Potassium Level 4.3 Sodium Level 141 Total Bilirubin 0.6 Total Protein 6.7 Basophils # 0.0 Basophils % 0.3 Eosinophils # 0.1 Eosinophils % 1.5 Hematocrit 26.2 L Hemoglobin 9.0 L Lymphocytes # 1.8 Lymphocytes % 25.0 Mean Corpuscular Hemoglobin 32.1 Mean Corpuscular Hemoglobin Concent 34.3 Mean Corpuscular Volume 93.6 Mean Platelet Volume 8.6 Monocytes # 0.6 Monocytes % 7.8 Neutrophils # 4.7 Neutrophils % 65.4 Nucleated Red Blood Cells # 0.0 Nucleated Red Blood Cells % 0.0 Platelet Count 196 Red Blood Count 2.80 L Red Cell Distribution Width 14.4 White Blood Count 7.2 Medications Medications Current Medications Potassium Chloride/Dextrose/ Sod Cl (D5-1/2ns + KCl 20 Meq) 1,000 ml @ 100 mls/ hr Q10H IV Last administered on 04/28/16t 03:38; Admin Dose 100 MLS/HR; Start at 23:44 Ondansetron HCl (Zofran Inj) 4 mg Q6H PRN IV NAUSEA AND/OR VOMITING Last administered on 04/27/16 14:28; Admin Dose 4 MG; Start 04/26/16 at 00:00 Acetaminophen (Tylenol Tab) 650 mg Q6H PRN PO PAIN LEVEL 1-3 OR FEVER; Start at 00:00 Acetaminophen/ Hydrocodone Bitart ([place] (5/325)) 1 tab Q6H PRN PO MODERATE PAIN LEVEL 4-6; Start 04/26/16 at 00:00 Docusate Sodium (Colace) 100 mg Q12H PRN PO CONSTIPATION Last administered on 04:48; Admin Dose 100 MG; Start 04/26/16 at 00:00 Zolpidem Tartrate (Ambien) 5 mg QHS PRN PO SLEEP; Start 04/26/16 at 00:00 Morphine Sulfate (morphine) 4 mg Q2H PRN IV SEVERE PAIN LEVEL 7-10 Last administered on 04/28/16 09:41; Admin Dose 4 MG; Start 04/26/16 at 06:24 Docusate Sodium (Colace) 100 mg BID PO Last administered on 04/27/16 21:16; Admin Dose 100 MG; Start 04/26/16 at 09:00 Magnesium Hydroxide (Milk Of Mag) 30 ml DAILY PRN PO CONSTIPATION; Start at 06:30 Senna (Senokot) 1 tab BID PO Last administered on 04/27/16 21:16; Admin Dose 1 TAB; Start 04/26/16 at 09:00 Atenolol (Tenormin) 50 mg DAILY PO Last administered on 04/27/16 09:27; Admin Dose 50 MG; Start 04/26/16 at 09:00 Hydralazine HCl (Apresoline) 10 mg Q6H PRN IV SBP>160; Start 04/26/16 at 11:00 Famotidine (Pepcid Iv) 20 mg BID IV Last administered on 04/28/16 09:41; Admin Dose 20 MG; Start 04/27/16 at 10:00 Procedures Procedures PROCEDURE: US DVT. CLINICAL INDICATION: History of lower extremity edema TECHNIQUE: Multiple longitudinal and transverse images of the bilateral lower extremity veins were obtained with borden scale and color Doppler imaging. 2D grayscale measurements with compression, color Doppler flow, and augmentation was performed. The calf veins were interrogated as well. COMPARISON: No prior studies are available for comparison. FINDINGS: The bilateral common femoral, superficial femoral and popliteal veins are normally compressible throughout. Color flow demonstrates normal filling of the vessel. Normal waveforms are visualized and there is normal response to augmentation. The calf veins are visualized and are equally unremarkable. IMPRESSION: 1. No evidence of a deep vein thrombosis involving either lower extremity. RPTAT: [facility] Physician Arnaldo Date Time Electronically viewed and signed by Chris Lomeli Physician on 04/27/2016 10: 31 ABDIRIZAK VARGAS Apr 28, 2016 09:50
[2016-04-28 09:51] LABS: PARTIAL THROMBOPLASTIN TIME 34.8 Sec (25.0-35.0)
--- NOTE | 2016-04-28 12:14 | RADRPT ---
Vent Rate: 55 bpm RR Interval: 0 msec TN Interval: 130 msec QRS Duration: 86 msec QT Interval: 440 msec QTC Interval: 420 msec P-R-T Alexander: 33 - 11 - 31 degrees Sinus bradycardia Otherwise normal ECG Electronically Signed By: Diaz Granados [id number]
[2016-04-28] MEDS ORDERED: MIDAZOLAM 1 MG/ML 2 ML INJ ONE ×2 (12:16→12:58)
[2016-04-28] MEDS ORDERED: FENTAnyl 50 MCG/ML VIAL ONE (12:33)
[2016-04-28] MEDS ORDERED: ONDANSETRON 4 MG INJ ONE (13:15)
[2016-04-28] MEDS ORDERED: SUCCINYLCHOLINE CHLORIDE 100 MG/5 ML SYG IV ONE (13:15)
[2016-04-28] MEDS ORDERED: DEXAMETHASONE 4 MG/ML 1 ML INJ ONE (13:15)
[2016-04-28] MEDS ORDERED: ROCURONIUM 50 MG INJ ONE ×3 (13:15→16:34)
[2016-04-28] MEDS ORDERED: LIDOCAINE 2% (SDV) 5 ML INJ ONE (13:15)
[2016-04-28] MEDS ORDERED: PROPOFOL 20 ML ONE (13:15)
[2016-04-28] MEDS ORDERED: HYDROmorphONE 2 MG/ML SYG ONE (13:16)
[2016-04-28] MEDS ORDERED: CEFAZOLIN 1 GM INJ ONE (13:53)
[2016-04-28] MEDS ORDERED: PHENYLephrine (100 MCG/ML) 5ML SYG ONE ×3 (15:07→16:30)
[2016-04-28] MEDS ORDERED: METHYLENE BLUE 10 MG/ML VIAL ONE (15:53)
[2016-04-28] MEDS ORDERED: PROCHLORPERAZINE 10 MG INJ IV PRN (17:00)
[2016-04-28] MEDS ORDERED: DIPHENHYDRAMINE 50 MG INJ IV PRN (17:00)
[2016-04-28] MEDS ORDERED: ONDANSETRON 4 MG INJ IV PRN (17:00)
[2016-04-28] MEDS ORDERED: MEPERIDINE 25 MG INJ IV PRN (17:00)
[2016-04-28] MEDS ORDERED: HYDROmorphONE (0.2 MG/ML) 10ML SYG IV PRN ×2 (17:00)
[2016-04-28] MEDS ORDERED: FENTAnyl 50 MCG/ML VIAL IV PRN ×3 (17:00)
[2016-04-28] MEDS ORDERED: ACETAMINOPHEN 1000MG/100ML IV 100 ML ONE (17:20)
[2016-04-28] MEDS: HYDROmorphONE (0.2 MG/ML) 10ML SYG IV PRN ×3 (18:55→19:27)
[2016-04-28 19:44] LABS: ALBUMIN 2.5 g/dl (3.3-4.9)
[2016-04-28 19:45] LABS: INR 1.53; PROTIME 18.5 Sec (12.2-14.2); PT RATIO 1.4
[2016-04-28 19:46] LABS: CREATININE 1.02 mg/dl (0.44-1.00)
[2016-04-28 19:47] LABS: ALBUMIN/GLOBULIN RATIO 0.75; BILIRUBIN,INDIRECT 0.4 mg/dl (0-1.1); BILIRUBIN,TOTAL 0.4 mg/dl (0.2-1.3); CALCIUM 7.6 mg/dl (8.4-10.2); TOTAL PROTEIN 5.8 g/dl (6.1-8.1)
[2016-04-28] MEDS: HYDROmorphONE 1 MG/ML SYG IV PRN (20:20)
[2016-04-28] MEDS ORDERED: D5-LR + KCL 20 MEQ 1,000 ML IV SCH (20:30)
[2016-04-28] MEDS ORDERED: HYDROmorphONE 1 MG/ML SYG IV PRN (21:00)
[2016-04-28 21:25] LABS: HEMATOCRIT 29.2 % (37.0-47.0); HEMOGLOBIN 9.8 g/dl (12.0-16.0); LYMPHOCYTES # 0.8 10^3/ul (0.8-2.9); MEAN CORPUSCULAR HEMOGLOBIN 31.1 pg (29.0-33.0); MEAN CORPUSCULAR HGB CONC 33.6 g/dl (32.0-37.0); MEAN CORPUSCULAR VOLUME 92.7 fl (82.0-101.0); MEAN PLATELET VOLUME 8.9 fl (7.4-10.4); MONOCYTE # 0.3 10^3/ul (0.3-0.9); MONOCYTES % 3.3 % (0.0-11.0); NEUTROPHILS % 87.7 % (39.0-77.0); PLATELET COUNT 177 10^3/UL (140-440); RED BLOOD COUNT 3.15 10^6/ul (4.20-5.40); RED CELL DISTRIBUTION WIDTH 15.4 % (11.5-14.5); UNCORRECTED WBC 9.1 10^3/ul (4.8-10.8); WHITE BLOOD COUNT 9.1 10^3/ul (4.8-10.8)
[2016-04-28] MEDS: CEFAZOLIN 1 GM/50 ML (PMX) 50 ML IVPB SCH (21:39)
[2016-04-28 21:43] LABS: SUSPECT 1
[2016-04-28 21:44] LABS: CONDITION 1; LH ANALYZER COMMENTS 1
[2016-04-28] MEDS: DEXTROSE 5% IV SCH (22:00)
[2016-04-28] MEDS ORDERED: CEFAZOLIN 1 GM/50 ML (PMX) 50 ML IVPB SCH (22:00)
[2016-04-28] MEDS: POTASSIUM CHLORIDE IV SCH (22:00)
[2016-04-28] MEDS ORDERED: metroNIDAZOLE 500 MG/NS (PMX) 100 ML IVPB SCH (22:00)
[2016-04-28] MEDS: [UNRECOGNIZED DRUG - OTHER] IV SCH (22:00)
[2016-04-28] MEDS: Metronidazole 500 MG in NS 100 ML IVPB SCH (22:41)
[2016-04-29] VITALS (52 sets, daily range): BP systolic 126–193; BP diastolic 68–97; PULSE 106–124; RESP 15–28
[2016-04-29] MEDS: HYDROmorphONE 1 MG/ML SYG IV PRN ×3 (01:36→12:03)
[2016-04-29] MEDS: morphine 4 MG/ML VIAL IV PRN ×6 (02:44→20:00)
[2016-04-29] MEDS: ONDANSETRON 4 MG INJ IV PRN (02:44)
[2016-04-29] MEDS: DEXTROSE 5% IV SCH ×3 (04:40→17:01)
[2016-04-29] MEDS: POTASSIUM CHLORIDE IV SCH ×3 (04:40→17:01)
[2016-04-29] MEDS: [UNRECOGNIZED DRUG - OTHER] IV SCH ×3 (04:40→17:01)
[2016-04-29] MEDS: CEFAZOLIN 1 GM/50 ML (PMX) 50 ML IVPB SCH ×3 (06:20→21:17)
[2016-04-29] MEDS: Metronidazole 500 MG in NS 100 ML IVPB SCH ×3 (07:06→22:05)
[2016-04-29] MEDS: DOCUSATE SODIUM 100 MG CAP PO SCH (09:00)
[2016-04-29 09:57] LABS: HEMATOCRIT 22.6 % (37.0-47.0); HEMOGLOBIN 7.8 g/dl (12.0-16.0); MEAN CORPUSCULAR HEMOGLOBIN 31.5 pg (29.0-33.0); MEAN CORPUSCULAR HGB CONC 34.4 g/dl (32.0-37.0); MEAN CORPUSCULAR VOLUME 91.5 fl (82.0-101.0); MEAN PLATELET VOLUME 8.6 fl (7.4-10.4); PLATELET COUNT 188 10^3/UL (140-440); RED BLOOD COUNT 2.47 10^6/ul (4.20-5.40); RED CELL DISTRIBUTION WIDTH 15.6 % (11.5-14.5); UNCORRECTED WBC 17.1 10^3/ul (4.8-10.8); WHITE BLOOD COUNT 17.1 10^3/ul (4.8-10.8)
[2016-04-29] MEDS: FAMOTIDINE 20 MG INJ IV SCH ×2 (10:08→21:17)
[2016-04-29 10:09] LABS: CONDITION 1; LH ANALYZER COMMENTS 1; SUSPECT 1
[2016-04-29 10:12] LABS: ALBUMIN 2.9 g/dl (3.3-4.9)
[2016-04-29 10:13] LABS: POTASSIUM 5.1 mmol/L (3.5-5.1)
[2016-04-29] MEDS: SENNA TAB PO SCH (10:13)
[2016-04-29] MEDS: ATENOLOL 50 MG TAB PO SCH (10:14)
[2016-04-29 10:15] LABS: ALBUMIN/GLOBULIN RATIO 0.85; BILIRUBIN,INDIRECT 0.3 mg/dl (0-1.1); BILIRUBIN,TOTAL 0.3 mg/dl (0.2-1.3); CREATININE 1.61 mg/dl (0.44-1.00); TOTAL PROTEIN 6.3 g/dl (6.1-8.1)
[2016-04-29 10:16] LABS: CALCIUM 7.9 mg/dl (8.4-10.2); INR 1.43; PROTIME 17.5 Sec (12.2-14.2); PT RATIO 1.4
[2016-04-29 10:55] LABS: LYMPHOCYTES # 1.4 10^3/ul (0.8-2.9); MONOCYTE # 0.5 10^3/ul (0.3-0.9); NEUTROPHIL # 12.3 10^3/ul (1.6-7.5)
--- NOTE | 2016-04-29 11:54 | PN ---
Date/Time of Note Date/Time of Note DATE: 04/29/16 TIME: 11:48 Assessment/Plan VTE Prophylaxis VTE Prophylaxis Intervention: SCD's Lines/Catheters IV Catheter Type (from Nrs): Peripheral IV Urinary Cath still in place: Yes Reason Cath still needed: urinary retention Assessment/Plan Chief Complaint/Hosp Course Assessment/Plan 55F with: 1. Metastatic ovarian cancer. Currently, admitted for abdominal pain. CT scan showing multiple soft tissue masses within the abdomen and pelvis, consistent with metastatic disease. The CT scan also revealed moderate midline upper wall ventral hernia containing multiple loops of small bowel with no evidence of small bowel obstruction. The patient is being followed by [facility]/Onc. 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 History of left lower extremity deep venous thrombosis - apparently pt had been on Coumadin. INR subtherapeutic. The patient's DVT was diagnosed approximately 8 months ago. However bilateral lower extremity venous Doppler study performed this admission (04/27/16) = neg for DVT. - holding Coumadin at this time - patient may need IVC filter 3. Normocytic normochromic anemia. Will monitor the H and H closely - f/u iron panel. 4. Transaminitis without hyperbilirubinemia. Etiology unclear. Will monitor the LFTs closely. Will avoid any hepatotoxic medications. 5. Essential hypertension. Continue antihypertensives. Blood pressure fairly well controlled. 6. Fluid, electrolytes, and nutrition. Clear liquid diet as per [facility]/Onc. 7. Deep venous thrombosis prophylaxis - SCD's 8. Gastrointestinal prophylaxis. Histamine 2 receptor blockers. Critical care time spent with pt care today = 40 min. Problems: Subjective 24 Hr Interval Summary Free Text/Dictation Pt had debulking surgery by Project Management Professional Onc yesterday, presently getting morphine for pain, otherwise no acute events overnight. Exam/Review of Systems Vital Signs Vitals Vital Signs Date Time Temp Pulse Resp B/P Pulse Ox O2 Delivery O2 Flow Rate FiO2 04/29/16 09:20 Nasal Cannula 2.0 04/29/16 09:00 115 19 193/88 95 04/29/16 08:00 98.8 Intake and Output 04/28/16 04/28/16 04/29/16 15:00 23:00 07:00 Intake Total 900 ml 2850 ml Output Total 1240 ml 190 ml Balance 900 ml 1610 ml -190 ml Exam GENERAL: This is an obese female lying in bed in no apparent distress. HEENT: Head normocephalic and atraumatic. Eyes: Anicteric sclerae. Conjunctivae clear. ENT: Nasal septum is midline. Oral mucosa is moist. NECK: Supple. No JVD noticed. RESPIRATORY: Bilaterally clear to auscultation. No adventitious breath sounds. No use of accessory muscles of respiration. CARDIAC: Regular rate and rhythm. No murmurs. ABDOMEN: Soft. Surgical scar intact, [address] + tenderness. Bowel sounds hypoactive in all 4 quadrants. EXTREMITIES: No cyanosis, no clubbing, no edema. Peripheral pulses are palpable. NEUROLOGIC: The patient is awake, alert and oriented. Cranial nerves are grossly intact. Results Result Diagram: 04/29/16 0941 04/29/16 0941 Results 24 hrs Laboratory Tests Test 04/28/16 19:25 04/29/16 09:41 Alanine Aminotransferase (ALT/SGPT) 190 H 153 H Albumin 2.5 L 2.9 L Albumin/Globulin Ratio 0.75 0.85 Alkaline Phosphatase 107 85 Anion Gap 14 17 H Aspartate Amino Transf (AST/SGOT) 133 H 107 H Basophils # 0.0 Basophils % 0.0 Blood Morphology Comment Blood Urea Nitrogen 11 19 Calcium Level 7.6 L 7.9 L Carbon Dioxide Level 19 L 20 L Chloride Level 109 109 Creatinine 1.02 H 1.61 H Direct Bilirubin 0.00 0.00 Eosinophils # 0.0 Eosinophils % 0.0 Globulin 3.30 H 3.40 H Glucose Level 224 #H 167 Hematocrit 29.2 L 22.6 #L Hemoglobin 9.8 L 7.8 #L INR International Normalized Ratio 1.53 1.43 Indirect Bilirubin 0.4 0.3 Lymphocytes # 0.8 1.4 Lymphocytes % 9.0 L 8.0 L Mean Corpuscular Hemoglobin 31.1 31.5 Mean Corpuscular Hemoglobin Concent 33.6 34.4 Mean Corpuscular Volume 92.7 91.5 Mean Platelet Volume 8.9 8.6 Monocytes # 0.3 0.5 Monocytes % 3.3 3.0 Neutrophils # 8.0 H 12.3 H Neutrophils % 87.7 H 72.0 Nucleated Red Blood Cells # 0.0 Nucleated Red Blood Cells % 0.0 Platelet Count 177 188 Potassium Level 4.0 5.1 Prothrombin Time 18.5 H 17.5 H Prothrombin Time Ratio 1.4 1.4 Red Blood Count 3.15 L 2.47 #L Red Cell Distribution Width 15.4 H 15.6 H Sodium Level 138 141 Total Bilirubin 0.4 0.3 Total Protein 5.8 L 6.3 White Blood Count 9.1 # 17.1 #H Band Neutrophils % 17.0 H Differential Comment MANUAL DIFF Medications Medications Current Medications Acetaminophen (Tylenol Tab) 650 mg Q6H PRN PO PAIN LEVEL 1-3 OR FEVER; Start at 00:00 Acetaminophen/ Hydrocodone Bitart ([place] (5/325)) 1 tab Q6H PRN PO MODERATE PAIN LEVEL 4-6; Start 04/26/16 at 00:00 Docusate Sodium (Colace) 100 mg Q12H PRN PO CONSTIPATION Last administered on 04:48; Admin Dose 100 MG; Start 04/26/16 at 00:00 Zolpidem Tartrate (Ambien) 5 mg QHS PRN PO SLEEP; Start 04/26/16 at 00:00 Morphine Sulfate (morphine) 4 mg Q2H PRN IV SEVERE PAIN LEVEL 7-10 Last administered on 04/29/16 10:12; Admin Dose 4 MG; Start 04/26/16 at 06:24 Docusate Sodium (Colace) 100 mg BID PO Last administered on 04/27/16 21:16; Admin Dose 100 MG; Start 04/26/16 at 09:00 Magnesium Hydroxide (Milk Of Mag) 30 ml DAILY PRN PO CONSTIPATION; Start at 06:30 Senna (Senokot) 1 tab BID PO Last administered on 04/29/16 10:13; Admin Dose 1 TAB; Start 04/26/16 at 09:00 Atenolol (Tenormin) 50 mg DAILY PO Last administered on 04/29/16 10:14; Admin Dose 50 MG; Start 04/26/16 at 09:00 Hydralazine HCl (Apresoline) 10 mg Q6H PRN IV SBP>160; Start 04/26/16 at 11:00 Famotidine 20 mg 20 mg BID IV Last administered on 04/29/16 10:08; Admin Dose 20 MG; Start 04/27/16 at 10:00 Cefazolin Sodium 50 ml @ 100 mls/hr Q8 IVPB Last administered on 04/29/16 06: 20; Admin Dose 100 MLS/HR; Start 04/28/16 at 22:00; Stop 05/01/16 at 14:29 Metronidazole (Flagyl 500 Mg (Pmx)) 100 ml @ 100 mls/hr Q8 IVPB Last administered on 04/29/16 07:06; Admin Dose 100 MLS/HR; Start 04/28/16 at 22:00; Stop 05/01/16 at 14:59 Hydromorphone HCl (Dilaudid) 1 mg Q1H PRN IV PAIN Last administered on 06:21; Admin Dose 1 MG; Start 04/28/16 at 19:30 Ondansetron HCl 4 mg 4 mg Q6H PRN IV NAUSEA AND/OR VOMITING Last administered on 04/29/16 02:44; Admin Dose 4 MG; Start 04/28/16 at 21:00 Potassium Chloride/Dextrose/ Lactated Ringer's (KCl/D5-Lr) 1,000 ml @ 150 mls/ hr Q6H40M IV Last administered on 04/29/16 10:03; Admin Dose 150 MLS/HR; Start 04/28/16 at 22:00 AMILCAR BARAHONA Apr 29, 2016 11:54
[2016-04-29] MEDS: hydrALAzine 20 MG INJ IV PRN (13:20)
[2016-04-29] MEDS: HYDROmorphONE 0.2 MG/ML PCA IV SCH (17:20)
[2016-04-29] MEDS ORDERED: SOD CHLORIDE 0.9% 250 ML IV* ONE (17:54)
--- NOTE | 2016-04-29 23:41 | OPR ---
Date/Time of Note Date/Time of Note DATE: 04/29/16 TIME: 23:40 Operative Report Free Text/Dictation 7 OPERATIVE REPORT [facility] Name: Liana Pérez Date: 04/28/15 Preoperative Diagnosis: 1- Recurrent ovarian cancer 2- Partial bowel obstruction 3- Symptomatic incisional hernia Postoperative Diagnosis: 1- Recurrent ovarian cancer 2- Partial sigmoid colon obstruction 3- Bilateral ureteral stricture 4- Gastric outlet obstruction 5- Extensive adhesions Procedures: 1- Sigmoid colon resection and anastamosis 2- Bilateral ureteral dissection with repositioning/ureterolysis 3- Residual Omentectomy with splenectomy/distal pancreatectomy 4- Celiac node debulking 5- Retroperitoneal node debulking 6- Cytoreduction 7- Ventral hernia repair 8- Enterolysis Surgeon: Dr. Perez Car Dealer: Dr. Mickey Workman Anesthesia: General Indications for surgery: The patient is a 55- year old female with recurrent ovarian cancer cancer after a Name: Liana Pérez significant enough disease-free interval and evidence of recurrence of disease on the basis of elevated markers, radiographic findings, and some very significant symptoms for whom a very necessary secondary cytoreduction was undertaken after addressing all options with risks and benefits. Findings and Summary After opening and exploration we noted absence of ascites and noted upper abdominal disease involving the minimal residual omentum, spleen with distal pancreas and adjacent celiac nodes adjacent to the celiac vasculature and the pelvic disease was presacral space densely adherent to the sigmoid colon and sidewall. The retroperitoneal nodes were enlarged isolated. At the completion of the procedure the patient was rendered visibly free of disease although the distribution would suggest the possibility of sub-millimeter residual disease. Procedure: After being prepped and draped in the usual manner a midline skin incision was made of appropriate length. The electrocautery was then used to dissect thru the adipose tissue to the level of the fascia. The fascia was elevated and entered with a scalpel and traction/counter-traction, and upon entering the peritoneal cavity no ascetic fluid was observed and the opening was extended with the scalpel without incident although significant upper and lower abdomen ventral hernias were noted. At this time adhesions of intestine to the anterior abdominal wall were lysed with great care and any sero-muscular defects encountered were repaired with interrupted 3-0 Silk suture. Additional enterolysis was accomplished throughout the abdomen and in the process exploration was accomplished an as we searched the abdominal and pelvic contents we found that the left upper quadrant metastatic disease involved the minimal residual omentum, spleen with distal pancreas and adjacent celiac nodes adjacent to the celiac vasculature, (rank #3). The right upper quadrant diseases involved approximately 2 % of the Name: Liana [facility] diaphragm surface (rank #1). Exploration of the central abdomen revealed approximately 12 implants involving the mesentery, intestinal, and gutter regions with dimensions of 1 mm to 10 mm (rank # 1). The pelvis was noted to be disease that was presacral space densely adherent to the sigmoid colon and sidewall. The largest metastatic disease was 9 cm in dimension and involved the siv-cy-jic-pelvic organs. We then placed a aortic Bellfower retractor. At this time, the minimal residual omentum was dissected from the transverse colon with sharp dissection and electrocautery when possible. Vessels to large to be managed by electrocautery or too close to the colon were hemoclipped and transected. Larger pedicles were addressed with the endo-CAPO using white vascular reloads if immediately adjacent to serosa, otherwise the Ligasure if bulky with adipose or the Gyrus bipolar cutting forceps if smaller and vascular. Oozing areas in the stable line were either clipped, cauterized, or sutured with 3-0 silk depending on the proximity to adjacent colonic serosa. This procedure was carried out throughout the length of the omentum and transverse colon really involving the splenic ligament with metastatic disease. We then entered the lesser sac bluntly and the minimal scarred gastro- colic ligament from the greater curvature of the stomach with the electrocautery and the Ligasure. The Gyrus bipolar cutting forceps was used for easily skeletonized vessels, otherwise the Ligasure. At this time, the remaining attachments of the spleen to the greater curvature of the stomach were hemoclipped and cut. The spleen with associated disease was mobilized by using electrocautery to address the attachment to the kidney. Attachments to the splenic flexure of the colon were addressed with hemoclips and the endo-CAPO when possible. The splenic vessels were separately clipped and tied with 0- Vicryl. Due to confluent disease involving the splenic hilum and pancreatic tail the pancreas was mobilized with electrocautery and the endo-CAPO as needed. The distal pancreas was stapled across with an 60 mm CAPO stapler and the duct was visualized with magnification and separately hemoclipped with a small clip. The specimen was removed en- Name: Liana [facility]lier [facility] bloc and the pancreatic staple line reinforced with continuous and interrupted 3 -0 prolene. Subsequently, additional sherley disease in the celiac vasculature was dissected with sharp dissection and digitally adjacent to the vasculature with and removed with any sero-muscular defects encountered on the duodenum repaired with interrupted 3-0 Silk suture. A Doppler confirmed vasculature patency. At this time, the entire small and large bowel was thoroughly inspected and palpated. There were approximately 12 implants on the mesentery and serosal surfaces of the small intestine and colon, excluding cul-de-sac disease. The size of the implants ranged from 1 to 25 millimeters. All mesenteric implants were ablated with an argon beam network support manager using a setting of 150 gudino. Larger implants were excised either sharply and the bases ablated with the argon beam network support manager. Serosal implants were excised sharply and any defects were closed with multiple sutures of 3-0 silk. All implants were ablated or excised. At this time, the pelvic disease was addressed. Because of the extensive metastatic disease involving the pelvic peritoneum and recto-sigmoid colon especially retroperitoneally, an en-bloc modified posterior pelvic exenteration was needed to resect the disease. Initially the remnant of right round ligament was transected with a Ligasure uneventfully. The retroperitoneal area was opened and the ureter was identified. Due to extensive pelvic anatomic ureteral distortion and some element of ureteral stricture with hydroureter it was essential to thoroughly dissect and reposition the ureter laterally for exposure and to permit the ongoing dissection. This was accomplished by dissecting the right ureter from the retroperitoneum with care due to peritoneal infiltration with metastatic disease with a right angle clamp and a peanut as well as digitally and lateralizing throughout the length, after which it was observed to peristalses. Subsequently, the remnant of left round ligament was transected with a Ligasure uneventfully. The retroperitoneal area were opened and the ureter was identified. Due to extensive pelvic anatomic ureteral distortion by the adnexial mass with metastatic disease in the peritoneum and some element of ureteral stricture with Name: Liana Collier [facility] hydroureter it was essential to thoroughly dissect and reposition the ureter laterally for exposure and to permit the ongoing dissection. This was accomplished by dissecting the left ureter from the retroperitoneum with care due to peritoneal and mesenteric infiltration with metastatic disease with a right angle clamp and a peanut as well as digitally and lateralizing throughout the length, after which it was observed to peristalses. After repositioning the ureters laterally away from the adherent peritoneum that was densely involved with disease, the proximal infundibulopelvic ligaments were cauterized with the Ligasure bilaterally and reinforced with interrupted ties of 0- Vicryl suture. Subsequently, the colon, proximal to the macroscopic disease was dissected away from the mesentery with a tonsil clamp and transected with a 75 mm CAPO stapler. The presacral area was then developed digitally adjacent to the metastatic disease and the specimen mobilized, after which the presacral space was further developed with a Ligasure and ablated with the argon beam network support manager. With both ureters identified and traced out the colonic mesentery was divided using a Ligasure. Any bleeding areas involving adjacent tissue was addressed with clips and/or 3-0 silk suture. The bladder flap was then developed with a Bovie and any implants on the anterior bladder peritoneum were ablated with an ABC network support manager. At this time a large right angle clamp was used to dissect the ureters bilaterally, away from the old uterine vessels in a manner used during a type-2 hysterectomy. The uterine arteries were clipped and cut, along with the veins and cauterized and transected with the Harir bipolar cutting forceps with the ureters visualized. The ureters were then tunneled through the parametria with a large right angle clamp, and the parametrial pedicles were transected with an endo-CAPO bilaterally. The bladder pillars were then dissected and clipped, after which the ureters were confirmed to be undamaged. Hence, remaining parametrial tissue was transected with the endo-CAPO and Ligasure. The disease was from the vagina and any vaginal opening due to vagina adherent to disease closed with figure of eight sutures using 0-vicryl. Subsequently, the perirectal tissue was Name: Liana [facility] dissected from the distal colon and proximal rectum. Large pedicles were addressed with the endo-CAPO or Ligasure while smaller ones were clipped and cut. The rectum was stapled with a Contour and the adnexia, central pelvic mass , pelvic peritoneum, and segment of recto-sigmoid removed en-bloc. After confirming hemostasis we addressed the lymph node dissection since we had excellent exposure. Initially any enlarged lymph node tissue adjacent to the right external iliac artery and vein, hypogastric artery and vein, as well as obturator fossa were removed with sharp and blunt dissection, using the Gyrus bipolar cutting forceps for hemostasis and lymphostasis. The dissection was continued to include sherley tissue adjacent to the common iliac vessels. The retractors were adjusted and any remotely suspicious sherley tissue adjacent to the vena cava to a level near the renal vessels, as well as aorto-caval nodes were removed using identical technique. At this time we adjusted the retractors and all enlarged lymph node tissue adjacent to the left external iliac artery and vein, hypogastric artery and vein, as well as obturator fossa were removed with sharp and blunt dissection, using the Gyrus bipolar cutting forceps for hemostasis and lymphostasis. The dissection was continued to include sherley tissue adjacent to the common iliac vessels. Subsequently, the retractors were adjusted and any sherley tissue adjacent to the aorta to a level of the renal vessels were dissected using sharp and blunt dissection with the Thunderbeat for hemostasis and lymphostasis. After confirming hemostasis the proximal large bowel was mobilized and a purse string maker placed. After using the purses string devise the detachable part of an EEA (29 mm) devise was sutured in place, the rectal segment inserted appropriately, and the anastamosis completed uneventfully. The integrity was confirmed by inserting air in the rectum and noting an absence of leakage. At this time, after all packing was removed, the abdomen thoroughly irrigated, hemostasis confirmed, and a Severo drain placed in the LUQ and pelvis as well. The fascial edges were exposed by resecting the ventral hernia sac in both areas with electrocautery and the Ligasure. The hernia sac Name: Liana [facility] was sent to pathology. A figure of eight suture was placed at the caudal apex of the incision with 1-Prolene and used for exposure by elevating with a Pean clamp. Interrupted 1-Prolene suture was used from the rostral apex and repeated to the supra-pubic area. Sepra film was used. The final suture was tied appropriately, after which the figure of eight was tied. The subcutaneous tissue was irrigated and the skin was closed with interrupted 3-0 Vicryl suture and skin clips. The sponge, needle, and instrument were correct two times. The estimated blood loss was 800 cc. The patient tolerated the procedure well and left the OR in good condition. It should be noted that all visible disease was resected. Leela Perez M.D. LEELA PEREZ MD Apr 29, 2016 23:41
--- NOTE | 2016-04-29 23:45 | PN ---
Date/Time of Note Date/Time of Note DATE: 04/29/16 TIME: 23:41 Assessment/Plan VTE Prophylaxis VTE Prophylaxis Intervention: SCD's Lines/Catheters IV Catheter Type (from [facility] Peripheral IV Urinary Cath still in place: Yes Assessment/Plan Chief Complaint/Hosp Course Brigido Perez M.D.. [facility] Consultation H&P Liana Nando Apr 26, 2016 Age:55 :1960 Physicians: Ruching Machine Operator Marketing Planning Manager Oncologist: Referring MD: Edi Ferrari History of the Present Illness: This is a 55 year old female who had a primary ovarian cancer operated on with a complete response to kenaitze-based chemotherapy. She had a recurrence with SecCrs and salage chemotherapy but now has a probable recurrence, incisional hernia and increased pain with suggestion of possible early SBO as she has had had intermittent symptoms 1-2 mo. She had a DVT rx'd with coumadin approximately 8 months.. Medical history/ROS: all other systems unremarkable. Surgical: Primary cytoreduction Medications: 09/24/14 Ativan 1 mg tablet 1 tab po q6hrs prn SEVERE nausea or anxiety only 10/09/14 Coumadin 10 mg tablet 1 tablet by mouth DAILY as directed 07/31/14 Coumadin 2 mg tablet 1 tablet by mouth DAILY 07/27/14 Coumadin 5 mg tablet 1 tablet by mouth DAILY 08/27/14 Coumadin 6 mg tablet 1 tablet by mouth DAILY 08/19/14 Coumadin 7.5 mg tablet 1 tablet by mouth DAILY 01/08/15 Diflucan 150 mg tablet 1 tablet by mouth DAILY 01/08/15 Keflex 500 mg tablet 1 capsule by mouth BID 10/27/14 Neupogen 480 mcg/0.8 mL injection syringe 1 injection subq x daily x 3 days 24 hours post ch 08/12/14 Proctozone-HC 2.5 % rectal cream 1 gm in the rectum DAILY prn 12/17/14 tramadol 50 mg tablet TAKE 2 TABLETS BY MOUTH EVERY 6 HOURS NEEDED 09/24/14 Zofran 8 mg tablet 1 tab po tid x3 days after chemo and 1 q 4-6hrs pr Allergies: 11/17/13 No Known Drug Allergies Family History: Noncontributory Social History: Noncontributory Review of Systems: Negative except for above noted Physical Examination General: Alert. HEENT: Pupils are equal, round, reactive to light and accommodation. Neck: Supple with no masses of lymphadenopathy. Breast: Deferred due to recent examination and responsibility of primary care physician. Chest: Clear to auscultation and percussion with no rales, ronchi, or wheeze. Heart: Normal rhythm with no murmur. Abdominal exam: probable incisional hernia, tender, nondistended, no masses, no ascites. location: N/A Pelvic exam: no masses or cul-de-sac nodularity noted Rectal: confirmatory with pelvic exam. Neurological: Grossly intact Assessment: Ovarian cancer with hernia and possible SBO and almost definite recurrence. Plan: Admited and evaluate for SBO probable secondary CRS surgery. Consider whether anticoagulation is needed as it has been 8 months and if so whether IVC filter is needed pre op. Brigido Perez M.D. Problems: Assessment/Plan A- doing well P- Transfuse as H/H down and needed; see orders Subjective 24 Hr Interval Summary Free Text/Dictation S- adequate pain control O- Resp- clear CVS- NSR ABD- NT soft clean EXT- NT no edema A- doing well P- Transfuse as H/H down and needed; see orders Exam/Review of Systems Vital Signs Vitals Vital Signs Date Time Temp Pulse Resp B/P Pulse Ox O2 Delivery O2 Flow Rate FiO2 04/29/16 23:06 2.0 04/29/16 22:30 115 17 142/80 96 04/29/16 22:00 Nasal Cannula 04/29/16 20:00 99.1 Intake and Output 04/28/16 04/28/16 04/29/16 15:00 23:00 07:00 Intake Total 900 ml 3300 ml 1350 ml Output Total 1240 ml 190 ml Balance 900 ml 2060 ml 1160 ml Results Result Diagram: 04/29/16 0941 04/29/16 0941 Results 24 hrs Laboratory Tests Test 04/29/16 09:41 Alanine Aminotransferase (ALT/SGPT) 153 H Albumin 2.9 L Albumin/Globulin Ratio 0.85 Alkaline Phosphatase 85 Anion Gap 17 H Aspartate Amino Transf (AST/SGOT) 107 H Band Neutrophils % 17.0 H Basophils # Basophils % Blood Morphology Comment Blood Urea Nitrogen 19 Calcium Level 7.9 L Carbon Dioxide Level 20 L Chloride Level 109 Creatinine 1.61 H Differential Comment MANUAL DIFF Direct Bilirubin 0.00 Eosinophils # Eosinophils % Globulin 3.40 H Glucose Level 167 Hematocrit 22.6 #L Hemoglobin 7.8 #L INR International Normalized Ratio 1.43 Indirect Bilirubin 0.3 Lymphocytes # 1.4 Lymphocytes % 8.0 L Mean Corpuscular Hemoglobin 31.5 Mean Corpuscular Hemoglobin Concent 34.4 Mean Corpuscular Volume 91.5 Mean Platelet Volume 8.6 Monocytes # 0.5 Monocytes % 3.0 Neutrophils # 12.3 H Neutrophils % 72.0 Nucleated Red Blood Cells # Nucleated Red Blood Cells % Platelet Count 188 Potassium Level 5.1 Prothrombin Time 17.5 H Prothrombin Time Ratio 1.4 Red Blood Count 2.47 #L Red Cell Distribution Width 15.6 H Sodium Level 141 Total Bilirubin 0.3 Total Protein 6.3 White Blood Count 17.1 #H Medications Medications Current Medications Morphine Sulfate (morphine) 4 mg Q2H PRN IV SEVERE PAIN LEVEL 7-10 Last administered on 04/29/16 20:00; Admin Dose 4 MG; Start 04/26/16 at 06:24 Hydralazine HCl (Apresoline) 10 mg Q6H PRN IV SBP>160 Last administered on 13:20; Admin Dose 10 MG; Start 04/26/16 at 11:00 Famotidine 20 mg 20 mg BID IV Last administered on 04/29/16 21:17; Admin Dose 20 MG; Start 04/27/16 at 10:00 Cefazolin Sodium 50 ml @ 100 mls/hr Q8 IVPB Last administered on 04/29/16 21: 17; Admin Dose 100 MLS/HR; Start 04/28/16 at 22:00; Stop 05/01/16 at 14:29 Metronidazole (Flagyl 500 Mg (Pmx)) 100 ml @ 100 mls/hr Q8 IVPB Last administered on 04/29/16 22:05; Admin Dose 100 MLS/HR; Start 04/28/16 at 22:00; Stop 05/01/16 at 14:59 Hydromorphone HCl (Dilaudid) 1 mg Q1H PRN IV PAIN Last administered on 12:03; Admin Dose 1 MG; Start 04/28/16 at 19:30 Ondansetron HCl 4 mg 4 mg Q6H PRN IV NAUSEA AND/OR VOMITING Last administered on 04/29/16 02:44; Admin Dose 4 MG; Start 04/28/16 at 21:00 Potassium Chloride/Dextrose/ Lactated Ringer's (KCl/D5-Lr) 1,000 ml @ 150 mls/ hr Q6H40M IV Last administered on 04/29/16 17:01; Admin Dose 150 MLS/HR; Start 04/28/16 at 22:00 Hydromorphone HCl (Dilaudid SWEATBAND DECORATING MACHINE OPERATOR) 0.5 MG DOSE 30 ... Q4PCA IV Last administered on 04/29/16 17:20; Admin Dose 6 MG; Start 04/29/16 at 17:00 BRIGIDO PEREZ MD Apr 29, 2016 23:44
[2016-04-30] VITALS (36 sets, daily range): BP systolic 143–203; BP diastolic 69–110; PULSE 102–126; RESP 14–27
[2016-04-30] MEDS: DEXTROSE 5% IV SCH ×5 (00:40→21:41)
[2016-04-30] MEDS: POTASSIUM CHLORIDE IV SCH ×5 (00:40→21:41)
[2016-04-30] MEDS: [UNRECOGNIZED DRUG - OTHER] IV SCH ×5 (00:40→21:41)
[2016-04-30] MEDS: HYDROmorphONE 0.2 MG/ML PCA IV SCH ×2 (04:14→16:35)
[2016-04-30] MEDS: hydrALAzine 20 MG INJ IV PRN ×2 (04:34→21:44)
[2016-04-30 05:37] LABS: BASOPHILS % 0.1 % (0.0-2.0); EOSINOPHILS % 0.2 % (0.0-7.0); HEMATOCRIT 28.7 % (37.0-47.0); HEMOGLOBIN 9.9 g/dl (12.0-16.0); LYMPHOCYTES # 1.2 10^3/ul (0.8-2.9); MEAN CORPUSCULAR HEMOGLOBIN 30.9 pg (29.0-33.0); MEAN CORPUSCULAR HGB CONC 34.3 g/dl (32.0-37.0); MEAN CORPUSCULAR VOLUME 89.9 fl (82.0-101.0); MEAN PLATELET VOLUME 8.8 fl (7.4-10.4); MONOCYTE # 0.9 10^3/ul (0.3-0.9); MONOCYTES % 3.8 % (0.0-11.0); NEUTROPHIL # 20.9 10^3/ul (1.6-7.5); NEUTROPHILS % 90.9 % (39.0-77.0); PLATELET COUNT 170 10^3/UL (140-440); RED BLOOD COUNT 3.19 10^6/ul (4.20-5.40); RED CELL DISTRIBUTION WIDTH 15.4 % (11.5-14.5)
[2016-04-30 05:43] LABS: CONDITION 1; LH ANALYZER COMMENTS 1; SUSPECT 1
[2016-04-30 05:55] LABS: POTASSIUM 4.6 mmol/L (3.5-5.1)
[2016-04-30 05:58] LABS: CREATININE 0.97 mg/dl (0.44-1.00)
[2016-04-30] MEDS: CEFAZOLIN 1 GM/50 ML (PMX) 50 ML IVPB SCH ×3 (06:06→21:41)
[2016-04-30] MEDS: Metronidazole 500 MG in NS 100 ML IVPB SCH ×3 (06:43→22:23)
[2016-04-30] MEDS: FAMOTIDINE 20 MG INJ IV SCH ×2 (08:22→20:42)
--- NOTE | 2016-04-30 10:53 | PN ---
Date/Time of Note Date/Time of Note DATE: 04/30/16 TIME: 10:50 Assessment/Plan VTE Prophylaxis VTE Prophylaxis Intervention: SCD's Lines/Catheters IV Catheter Type (from Nrsg): Peripheral IV Urinary Cath still in place: Yes Reason Cath still needed: urinary retention Assessment/Plan Chief Complaint/Hosp Course Assessment/Plan 55F with: 1. Metastatic ovarian cancer. Currently, admitted for abdominal pain. CT scan showing multiple soft tissue masses within the abdomen and pelvis, consistent with metastatic disease. The CT scan also revealed moderate midline upper wall ventral hernia containing multiple loops of small bowel with no evidence of small bowel obstruction. The patient is being followed by GLASS BLOCK BENDER/Onc. S/P debulking surgery POD # 2. s/p pRBC transfusion yesterday as well. - continue pain control, f/u tank pumper panelboard Onc rec's - monitor drains, UO, consider PT per Air Table Operator Onc rec's - f/u post-op rec's 2. History of left lower extremity deep venous thrombosis - apparently pt had been on Coumadin. INR subtherapeutic. The patient's DVT was diagnosed approximately 8 months ago. However bilateral lower extremity venous Doppler study performed this admission (04/27/16) = neg for DVT. - holding Coumadin at this time - patient may need IVC filter 3. Normocytic normochromic anemia - again, s/p pRBC transfusion yesterday - Will monitor the H and H closely - f/u iron panel. 4. Transaminitis without hyperbilirubinemia. Etiology unclear. -Will monitor the LFTs closely. - Will avoid any hepatotoxic medications. 5. Essential hypertension - Blood pressure fairly well controlled. - Continue antihypertensives. 6. Fluid, electrolytes, and nutrition. -Clear liquid diet as per GL[facility] BLOCK BENDER/Onc. 7. Deep venous thrombosis prophylaxis - SCD's 8. Gastrointestinal prophylaxis. Histamine 2 receptor blockers. Critical care time spent with pt care today = 40 min. Problems: Subjective 24 Hr Interval Summary Free Text/Dictation Pt received blood transfusion yesterday, no acute events overnight, on COURSE DEVELOPER pump for pain control as well. Exam/Review of Systems Vital Signs Vitals Vital Signs Date Time Temp Pulse Resp B/P Pulse Ox O2 Delivery O2 Flow Rate FiO2 04/30/16 10:00 112 17 153/86 94 04/30/16 08:00 99.1 04/30/16 04:00 Nasal Cannula 2.0 Intake and Output 04/29/16 04/29/16 04/30/16 15:00 23:00 07:00 Intake Total 370 ml 1000 ml Output Total 305 ml 480 ml 915 ml Balance -305 ml -110 ml 85 ml Exam GENERAL: This is an obese female lying in bed in no apparent distress. HEENT: Head normocephalic and atraumatic. Eyes: Anicteric sclerae. Conjunctivae clear. ENT: Nasal septum is midline. Oral mucosa is moist. NECK: Supple. No JVD noticed. RESPIRATORY: Bilaterally clear to auscultation. No adventitious breath sounds. No use of accessory muscles of respiration. CARDIAC: Regular rate and rhythm. No murmurs. ABDOMEN: Soft. Surgical scar intact, [address] some + tenderness. Bowel sounds hypoactive in all 4 quadrants. EXTREMITIES: No cyanosis, no clubbing, no edema. Peripheral pulses are palpable. NEUROLOGIC: The patient is awake, alert and oriented. Cranial nerves are grossly intact. Results Result Diagram: 04/30/16 0440 04/30/16 0440 Results 24 hrs Laboratory Tests Test 04/30/16 04:40 Anion Gap 13 Basophils # 0.0 Basophils % 0.1 Blood Morphology Comment Blood Urea Nitrogen 19 Calcium Level 8.0 L Carbon Dioxide Level 26 Chloride Level 108 Creatinine 0.97 Eosinophils # 0.0 Eosinophils % 0.2 Glucose Level 124 # Hematocrit 28.7 #L Hemoglobin 9.9 #L Lymphocytes # 1.2 Lymphocytes % 5.0 L Mean Corpuscular Hemoglobin 30.9 Mean Corpuscular Hemoglobin Concent 34.3 Mean Corpuscular Volume 89.9 Mean Platelet Volume 8.8 Monocytes # 0.9 Monocytes % 3.8 Neutrophils # 20.9 H Neutrophils % 90.9 H Nucleated Red Blood Cells # 0.0 Nucleated Red Blood Cells % 0.0 Platelet Count 170 Potassium Level 4.6 Red Blood Count 3.19 #L Red Cell Distribution Width 15.4 H Sodium Level 142 White Blood Count 23.0 #H Medications Medications Current Medications Morphine Sulfate (morphine) 4 mg Q2H PRN IV SEVERE PAIN LEVEL 7-10 Last administered on 04/29/16t 20:00; Admin Dose 4 MG; Start 04/26/16 at 06:24 Hydralazine HCl (Apresoline) 10 mg Q6H PRN IV SBP>160 Last administered on 04:34; Admin Dose 10 MG; Start 04/26/16 at 11:00 Famotidine 20 mg 20 mg BID IV Last administered on 04/30/16 08:22; Admin Dose 20 MG; Start 04/27/16 at 10:00 Cefazolin Sodium 50 ml @ 100 mls/hr Q8 IVPB Last administered on 04/30/16 06: 06; Admin Dose 100 MLS/HR; Start 04/28/16 at 22:00; Stop 05/01/16 at 14:29 Metronidazole (Flagyl 500 Mg (Pmx)) 100 ml @ 100 mls/hr Q8 IVPB Last administered on 04/30/16 06:43; Admin Dose 100 MLS/HR; Start 04/28/16 at 22:00; Stop 05/01/16 at 14:59 Hydromorphone HCl (Dilaudid) 1 mg Q1H PRN IV PAIN Last administered on 12:03; Admin Dose 1 MG; Start 04/28/16 at 19:30 Ondansetron HCl 4 mg 4 mg Q6H PRN IV NAUSEA AND/OR VOMITING Last administered on 04/29/16 02:44; Admin Dose 4 MG; Start 04/28/16 at 21:00 Potassium Chloride/Dextrose/ Lactated Ringer's (KCl/D5-Lr) 1,000 ml @ 150 mls/ hr Q6H40M IV Last administered on 04/30/16 08:22; Admin Dose 150 MLS/HR; Start 04/28/16 at 22:00 Hydromorphone HCl (Dilaudid COURSE DEVELOPER) 0.5 MG DOSE 30 ... Q4PCA IV Last administered on 04/30/16 04:14; Admin Dose 6 MG; Start 04/29/16 at 17:00 AMILCAR BARAHONA Apr 30, 2016 10:53
[2016-04-30] MEDS: HYDROmorphONE 1 MG/ML SYG IV PRN (15:15)
--- NOTE | 2016-04-30 19:43 | PN ---
Date/Time of Note Date/Time of Note DATE: 04/30/16 TIME: 19:36 Assessment/Plan VTE Prophylaxis VTE Prophylaxis Intervention: LMWH Lines/Catheters IV Catheter Type (from Nrsg): Peripheral IV Urinary Cath still in place: Yes Assessment/Plan Chief Complaint/Hosp Course Ovarian cancer with hernia and possible SBO and recurrence. Problems: Assessment/Plan A- doing well P- mobilize, start TPN and sandostatin due to complex splenectomy/distal pancreas Subjective 24 Hr Interval Summary Free Text/Dictation S- better pain control and less SOB. O Resp- clear CVS- NSR Abd- soft, appropriate tenderness, clean with KORIN output Ext- NT no edema A- doing well P- mobilize, start TPN and sandostatin due to complex splenectomy/distal pancreas Exam/Review of Systems Vital Signs Vitals Vital Signs Date Time Temp Pulse Resp B/P Pulse Ox O2 Delivery O2 Flow Rate FiO2 04/30/16 16:42 15 04/30/16 16:26 99.1 110 157/74 93 04/30/16 08:00 Nasal Cannula 2.0 Intake and Output 04/29/16 04/29/16 04/30/16 15:00 23:00 07:00 Intake Total 370 ml 1000 ml Output Total 305 ml 480 ml 915 ml Balance -305 ml -110 ml 85 ml Results Result Diagram: 04/30/160 04/30/16 0440 Results 24 hrs Laboratory Tests Test 04/30/16 04:40 Anion Gap 13 Basophils # 0.0 Basophils % 0.1 Blood Morphology Comment Blood Urea Nitrogen 19 Calcium Level 8.0 L Carbon Dioxide Level 26 Chloride Level 108 Creatinine 0.97 Eosinophils # 0.0 Eosinophils % 0.2 Glucose Level 124 # Hematocrit 28.7 #L Hemoglobin 9.9 #L Lymphocytes # 1.2 Lymphocytes % 5.0 L Mean Corpuscular Hemoglobin 30.9 Mean Corpuscular Hemoglobin Concent 34.3 Mean Corpuscular Volume 89.9 Mean Platelet Volume 8.8 Monocytes # 0.9 Monocytes % 3.8 Neutrophils # 20.9 H Neutrophils % 90.9 H Nucleated Red Blood Cells # 0.0 Nucleated Red Blood Cells % 0.0 Platelet Count 170 Potassium Level 4.6 Red Blood Count 3.19 #L Red Cell Distribution Width 15.4 H Sodium Level 142 White Blood Count 23.0 #H Medications Medications Current Medications Morphine Sulfate (morphine) 4 mg Q2H PRN IV SEVERE PAIN LEVEL 7-10 Last administered on 04/29/16 20:00; Admin Dose 4 MG; Start 04/26/16 at 06:24 Hydralazine HCl (Apresoline) 10 mg Q6H PRN IV SBP>160 Last administered on 04:34; Admin Dose 10 MG; Start 04/26/16 at 11:00 Famotidine 20 mg 20 mg BID IV Last administered on 04/30/16 08:22; Admin Dose 20 MG; Start 04/27/16 at 10:00 Cefazolin Sodium 50 ml @ 100 mls/hr Q8 IVPB Last administered on 04/30/16 14: 42; Admin Dose 100 MLS/HR; Start 04/28/16 at 22:00; Stop 05/01/16 at 14:29 Metronidazole (Flagyl 500 Mg (Pmx)) 100 ml @ 100 mls/hr Q8 IVPB Last administered on 04/30/16 14:42; Admin Dose 100 MLS/HR; Start 04/28/16 at 22:00; Stop 05/01/16 at 14:59 Hydromorphone HCl (Dilaudid) 1 mg Q1H PRN IV PAIN Last administered on 15:15; Admin Dose 1 MG; Start 04/28/16 at 19:30 Ondansetron HCl 4 mg 4 mg Q6H PRN IV NAUSEA AND/OR VOMITING Last administered on 04/29/16 02:44; Admin Dose 4 MG; Start 04/28/16 at 21:00 Potassium Chloride/Dextrose/ Lactated Ringer's (KCl/D5-Lr) 1,000 ml @ 150 mls/ hr Q6H40M IV Last administered on 04/30/16 14:42; Admin Dose 150 MLS/HR; Start 04/28/16 at 22:00 Hydromorphone HCl (Dilaudid KNOTTING MACHINE OPERATOR PORTABLE) 0.5 MG DOSE 30 ... Q4PCA IV Last administered on 04/30/16 16:35; Admin Dose 6 MG; Start 04/29/16 at 17:00 Octreotide Acetate (Sandostatin) 50 mcg TID SC ; Start 04/30/16 at 21:00 LEELA VILLANUEVA MD Apr 30, 2016 19:43
[2016-04-30] MEDS: OCTREOTIDE 50 MCG INJ SC SCH (20:42)
[2016-05-01] MEDS: HYDROmorphONE 0.2 MG/ML PCA IV SCH (04:02)
[2016-05-01 05:20] LABS: BASOPHILS % 0.1 % (0.0-2.0); EOSINOPHILS # 0.1 10^3/ul (0.0-0.5); EOSINOPHILS % 0.5 % (0.0-7.0); HEMATOCRIT 26.1 % (37.0-47.0); HEMOGLOBIN 8.9 g/dl (12.0-16.0); LYMPHOCYTES # 1.2 10^3/ul (0.8-2.9); LYMPHOCYTES % 5.1 % (15.0-51.0); MEAN CORPUSCULAR HEMOGLOBIN 30.9 pg (29.0-33.0); MEAN CORPUSCULAR HGB CONC 34.1 g/dl (32.0-37.0); MEAN CORPUSCULAR VOLUME 90.8 fl (82.0-101.0); MEAN PLATELET VOLUME 8.3 fl (7.4-10.4); MONOCYTE # 0.7 10^3/ul (0.3-0.9); MONOCYTES % 2.9 % (0.0-11.0); NEUTROPHIL # 21.3 10^3/ul (1.6-7.5); NEUTROPHILS % 91.4 % (39.0-77.0); PLATELET COUNT 180 10^3/UL (140-440); RED BLOOD COUNT 2.87 10^6/ul (4.20-5.40); RED CELL DISTRIBUTION WIDTH 15.9 % (11.5-14.5); UNCORRECTED WBC 23.3 10^3/ul (4.8-10.8); WHITE BLOOD COUNT 23.3 10^3/ul (4.8-10.8)
[2016-05-01] MEDS: CEFAZOLIN 1 GM/50 ML (PMX) 50 ML IVPB SCH (05:29)
[2016-05-01] MEDS: D5-LR + KCL 20 MEQ 1,000 ML IV SCH ×2 (05:29→11:10)
[2016-05-01 05:36] LABS: CONDITION 1; LH ANALYZER COMMENTS 1; POTASSIUM 4.3 mmol/L (3.5-5.1); SUSPECT 1
[2016-05-01 05:39] LABS: CREATININE 0.75 mg/dl (0.44-1.00)
[2016-05-01 05:40] LABS: CALCIUM 8.2 mg/dl (8.4-10.2)
[2016-05-01] MEDS: Metronidazole 500 MG in NS 100 ML IVPB SCH ×2 (06:23→14:54)
[2016-05-01 08:12] VITALS: BP 184/87; RESP 18
[2016-05-01] MEDS: hydrALAzine 20 MG INJ IV PRN (08:31)
[2016-05-01] MEDS: FAMOTIDINE 20 MG INJ IV SCH ×2 (08:32→20:43)
[2016-05-01] MEDS: OCTREOTIDE 50 MCG INJ SC SCH (08:38)
[2016-05-01] MEDS: ONDANSETRON 4 MG INJ IV PRN (08:48)
[2016-05-01] MEDS ORDERED: VANCOMYCIN IV PER PHARMACY XX SCH (10:30)
[2016-05-01] MEDS: KETOROLAC 30 MG INJ IV SCH ×3 (10:30→16:24)
[2016-05-01] MEDS: ATENOLOL 50 MG TAB PO SCH (11:07)
[2016-05-01] MEDS: PIPER-TAZO 3.375 GM IV (PMX) 100 ML IVPB SCH ×2 (11:42→22:05)
[2016-05-01] MEDS ORDERED: VANCOMYCIN 2 GM in SOD CHLORIDE 0.9% 500 ML IVPB SCH (12:30)
--- NOTE | 2016-05-01 12:41 | PN ---
Date/Time of Note Date/Time of Note DATE: 05/01/16 TIME: 12:26 Assessment/Plan VTE Prophylaxis VTE Prophylaxis Intervention: SCD's Lines/Catheters IV Catheter Type (from Nrsg): Saline Lock Urinary Cath still in place: Yes Reason Cath still needed: other (indicate) Assessment/Plan Assessment/Plan 55 yo F with abd pain 2/2 diffuse metastatic disease managed for : 1. Metastatic ovarian cancer. CT scan showing multiple soft tissue masses within the abdomen and pelvis, consistent with metastatic disease. The CT scan also revealed moderate midline upper wall ventral hernia containing multiple loops of small bowel with no evidence of small bowel obstruction. S/P debulking surgery, hernia repair + bowel resection 04/29/16 / continue routine postop care / modify pain regime / appreciate Molder Wax Ball Onc rec's / monitor drains, UO / PT when pain is better controlled 2. History of left lower extremity deep venous thrombosis - apparently pt had been on Coumadin. INR subtherapeutic. The patient's DVT was diagnosed approximately 8 months ago. However bilateral lower extremity venous Doppler study performed this admission (04/27/16) = neg for DVT. - holding Coumadin at this time - patient may need IVC filter 3. Normocytic normochromic anemia - again, s/p pRBC transfusion on this admission - Will monitor the H and H closely 4. Transaminitis without hyperbilirubinemia. Etiology unclear. from recent surgery versus mets -Will monitor the LFTs closely / trending down at this time - Will avoid any hepatotoxic medications. 5. Essential hypertension - Blood pressure poorly controlled. / patient on sandostatin, may be contributory / will d/c if ok with lift manager onc - Continue antihypertensives. 6. Fluid, electrolytes, and nutrition. -NPO except meds +ice chips / change IVF to D5 1/ while NPO 7. Leucocytosis: worsened broaden abx coverage / trend levels /ID consult / repeat cultures / encourage ambulation / Incentive Spirometer use Deep venous thrombosis prophylaxis - SCD's Gastrointestinal prophylaxis. Histamine 2 receptor blockers. Subjective 24 Hr Interval Summary Free Text/Dictation patient seen nursing reports elevated blood pressures and a lot of pain , however patient reports narcotics make her dizzy and nauseous and hence she has been refusing. Constitutional: poor po Gastrointestinal: nausea Neurologic: dizziness Exam/Review of Systems Vital Signs Vitals Vital Signs Date Time Temp Pulse Resp B/P Pulse Ox O2 Delivery O2 Flow Rate FiO2 05/01/16 08:12 98.1 100 18 184/87 93 05/01/16 00:27 2.0 04/30/16 20:00 Nasal Cannula Intake and Output 04/30/16 04/30/16 05/01/16 15:00 23:00 07:00 Intake Total 20 ml 1200 ml 1170 ml Output Total 300 ml 300 ml 955 ml Balance -280 ml 900 ml 215 ml Exam Constitutional: alert, distress (uncomfortable), obese Psych: anxiety Head: atraumatic, normocephalic Eyes: PERRL, No icteric ENMT: No intubated, No mucosa pink and moist (dry) Neck: supple Respiratory: clear to auscultation, diminished breath sounds, No tactile fremitus Cardiovascular: No regular rate and rhythm (tachycardia) Gastrointestinal: bowel sounds (reduced), soft, surgical scars (midline covered in dressing . clean and dry , drains x2 with bloody fluid, NGT dark green fluid, good vol), tender Extremities: No edema Neurological: lethargic, nl mental status, No focal weakness Results Result Diagram: 05/01/1643405/01/16 043 Results 24 hrs Laboratory Tests Test 05/01/16 04:35 Anion Gap 13 Basophils # 0.0 Basophils % 0.1 Blood Morphology Comment Blood Urea Nitrogen 14 Calcium Level 8.2 L Carbon Dioxide Level 26 Chloride Level 107 Creatinine 0.75 Eosinophils # 0.1 Eosinophils % 0.5 Glucose Level 121 Hematocrit 26.1 L Hemoglobin 8.9 L Lymphocytes # 1.2 Lymphocytes % 5.1 L Mean Corpuscular Hemoglobin 30.9 Mean Corpuscular Hemoglobin Concent 34.1 Mean Corpuscular Volume 90.8 Mean Platelet Volume 8.3 Monocytes # 0.7 Monocytes % 2.9 Neutrophils # 21.3 H Neutrophils % 91.4 H Nucleated Red Blood Cells # 0.0 Nucleated Red Blood Cells % 0.0 Platelet Count 180 Potassium Level 4.3 Red Blood Count 2.87 L Red Cell Distribution Width 15.9 H Sodium Level 142 White Blood Count 23.3 H Medications Medications Current Medications Morphine Sulfate (morphine) 4 mg Q2H PRN IV SEVERE PAIN LEVEL 7-10 Last administered on 04/29/16t 20:00; Admin Dose 4 MG; Start 04/26/16 at 06:24 Hydralazine HCl (Apresoline) 10 mg Q6H PRN IV SBP>160 Last administered on 08:31; Admin Dose 10 MG; Start 04/26/16 at 11:00 Famotidine 20 mg 20 mg BID IV Last administered on 05/01/16 08:32; Admin Dose 20 MG; Start 04/27/16 at 10:00 Metronidazole (Flagyl 500 Mg (Pmx)) 100 ml @ 100 mls/hr Q8 IVPB Last administered on 05/01/16 06:23; Admin Dose 100 MLS/HR; Start 04/28/16 at 22:00; Stop 05/01/16 at 14:59 Hydromorphone HCl (Dilaudid) 1 mg Q1H PRN IV PAIN Last administered on 15:15; Admin Dose 1 MG; Start 04/28/16 at 19:30 Ondansetron HCl (Zofran Inj) 4 mg Q6H PRN IV NAUSEA AND/OR VOMITING Last administered on 05/01/16 08:48; Admin Dose 4 MG; Start 04/28/16 at 21:00 Hydromorphone HCl (Dilaudid LIBRARY SERVICES COORDINATOR) 0.5 MG DOSE 30 ... Q4PCA IV Last administered on 05/01/16 04:02; Admin Dose 6 MG; Start 04/29/16 at 17:00 Octreotide Acetate 50 mcg 50 mcg TID SC Last administered on 05/01/16 08:38; Admin Dose 50 MCG; Start 04/30/16 at 21:00 Potassium Cl/ Dextrose/Lact Ringer's (D5-Lr + KCl 20 Meq) 1,000 ml @ 150 mls/ hr Q6H40M IV Last administered on 05/01/16 05:29; Admin Dose 150 MLS/HR; Start 05/01/16 at 04:30 Ketorolac Tromethamine (Toradol) 30 mg Q6H IV Last administered on 05/01/16 12: 12; Admin Dose 30 MG; Start 05/01/16 at 10:30; Stop 05/03/16 at 10:29 Atenolol 50 mg 50 mg DAILY PO Last administered on 05/01/16 11:07; Admin Dose 50 MG; Start 05/01/16 at 10:30 Piperacillin Sod/ Tazobactam Sod (Zosyn 3.375gm/ 100 ml (Pmx)) 100 ml @ 200 mls /hr Q8 IVPB Last administered on 05/01/16 11:42; Admin Dose 200 MLS/HR; Start 05/01/16 at 12:00 Clonidine 0.1 mg 0.1 mg Q6H PRN PO SBP >160 Last administered on 05/01/16 11:06 ; Admin Dose 0.1 MG; Start 05/01/16 at 10:30 Vancomycin HCl 2 gm/Sodium Chloride 500 ml @ 125 mls/hr ONCE IVPB ; Start at 12:30; Stop 05/01/16 at 16:29 Vancomycin HCl/ Sodium Chloride (Vancocin/NS) 250 ml @ 83.333 mls/ hr Q12H IVPB ; Start 05/02/16 at 01:00 ABDIRIZAK VARGAS May 01, 2016 12:37
[2016-05-01 15:10] LABS: ADD UMIC YES; URINE BILIRUBIN (Dip) NEGATIVE (NEGATIVE); URINE BLOOD (Dip) NEGATIVE (NEGATIVE); URINE COLOR YELLOW (YELLOW); URINE GLUCOSE (Dip) NEGATIVE (NEGATIVE); URINE KETONES (Dip) NEGATIVE (NEGATIVE); URINE LEUKOCYTE ESTERASE (Dip) TRACE (NEGATIVE); URINE NITRITE (Dip) NEGATIVE (NEGATIVE); URINE TOTAL PROTEIN (Dip) NEGATIVE (NEGATIVE); URINE UROBILINOGEN (Dip) 0.2 E.U./dL (0.1-1.0)
[2016-05-01 15:27] LABS: BACTERIA,URINE FEW; SQUAMOUS EPITHELIAL CELL,UR FEW; URINE RBCS NONE SEEN /HPF (0)
[2016-05-01] MEDS: ACETAMINOPHEN/CODEINE #3 TAB PO PRN ×2 (15:46→22:01)
[2016-05-01] MEDS: DEXTROSE 5%-0.45% NACL 1,000 ML IV SCH (16:25)
[2016-05-01] MEDS: morphine 2 MG INJ IV PRN ×2 (19:12→23:03)
[2016-05-01 19:59] VITALS: BP 160/83; RESP 18
--- NOTE | 2016-05-01 21:52 | PN ---
Date/Time of Note Date/Time of Note DATE: 05/01/16 TIME: 21:47 Assessment/Plan VTE Prophylaxis VTE Prophylaxis Intervention: LMWH Lines/Catheters IV C[facility] Type [facility]from [facility] Saline Lock Urinary Cath still in place: Yes Assessment/Plan Chief Complaint/Hosp Course Ovarian cancer with hernia and possible SBO and recurrence. Problems: Assessment/Plan A- doing adequately P- mobilize, start TPN and MUST MAINTAIN sandostatin due to complex splenectomy/ distal pancreas. PLEASE NOTE: 1- The Sandostatin is used to reduce the pancreatic and GI output in lieu of the very challenging splenectomy with possible adjacent pancreatic tissue due to metastatic disease and is used to prevent a pancreatic leakage or fistula. 2- I will order PRBC because oxygen delivery to the very compromised tissue is essential rather than a protocol such as Hgb 7.5. Subjective 24 Hr Interval Summary Free Text/Dictation S- better pain adequate and less SOB. O Resp- clear CVS- NSR Abd- soft, appropriate tenderness, clean with KORIN output Ext- NT no edema A- doing adequately P- mobilize, start TPN and MUST MAINTAIN sandostatin due to complex splenectomy/ distal pancreas. PLEASE NOTE: 1- The Sandostatin is used to reduce the pancreatic and GI output in lieu of the very challenging splenectomy with possible adjacent pancreatic tissue due to metastatic disease and is used to prevent a pancreatic leakage or fistula. 2- I will order PRBC because oxygen delivery to the very compromised tissue is essential rather than a protocol such as Hgb 7.5. Exam/Review of Systems Vital Signs Vitals Vital Signs Date Time Temp Pulse Resp B/P Pulse Ox O2 Delivery O2 Flow Rate FiO2 05/01/16 19:59 97.5 73 18 160/83 98 05/01/16 16:10 2.0 05/01/16 08:00 Nasal Cannula Intake and Output 04/30/16 04/30/16 05/01/16 15:00 23:00 07:00 Intake Total 20 ml 1200 ml 1170 ml Output Total 300 ml 300 ml 955 ml Balance -280 ml 900 ml 215 ml Results Result Diagram: 05/01/16 0435 05/01/16 0435 Results 24 hrs Laboratory Tests Test 05/01/16 04:35 05/01/16 15:00 Anion Gap 13 Basophils # 0.0 Basophils % 0.1 Blood Morphology Comment Blood Urea Nitrogen 14 Calcium Level 8.2 L Carbon Dioxide Level 26 Chloride Level 107 Creatinine 0.75 Eosinophils # 0.1 Eosinophils % 0.5 Glucose Level 121 Hematocrit 26.1 L Hemoglobin 8.9 L Lymphocytes # 1.2 Lymphocytes % 5.1 L Mean Corpuscular Hemoglobin 30.9 Mean Corpuscular Hemoglobin Concent 34.1 Mean Corpuscular Volume 90.8 Mean Platelet Volume 8.3 Monocytes # 0.7 Monocytes % 2.9 Neutrophils # 21.3 H Neutrophils % 91.4 H Nucleated Red Blood Cells # 0.0 Nucleated Red Blood Cells % 0.0 Platelet Count 180 Potassium Level 4.3 Red Blood Count 2.87 L Red Cell Distribution Width 15.9 H Sodium Level 142 White Blood Count 23.3 H Urine Bacteria FEW Urine Bilirubin NEGATIVE Urine Clarity CLEAR Urine Color YELLOW Urine Glucose NEGATIVE Urine Hemoglobin NEGATIVE Urine Ketones NEGATIVE Urine Leukocyte Esterase TRACE H Urine Microscopic RBC NONE SEEN Urine Microscopic WBC 0-2 Urine Nitrite NEGATIVE Urine Specific Olar 1.015 Urine Squamous Epithelial Cells FEW Urine Total Protein NEGATIVE Urine Urobilinogen 0.2 E.U./dL Urine pH 6.0 Medications Medications Current Medications Hydralazine HCl (Apresoline) 10 mg Q6H PRN IV SBP>160 Last administered on 08:31; Admin Dose 10 MG; Start 04/26/16 at 11:00 Famotidine (Pepcid Iv) 20 mg BID IV Last administered on 05/01/16 20:43; Admin Dose 20 MG; Start 04/27/16 at 10:00 Ondansetron HCl (Zofran Inj) 4 mg Q6H PRN IV NAUSEA AND/OR VOMITING Last administered on 05/01/16 08:48; Admin Dose 4 MG; Start 04/28/16 at 21:00 Ketorolac Tromethamine (Toradol) 30 mg Q6H IV Last administered on 05/01/16 16: 24; Admin Dose 30 MG; Start 05/01/16 at 10:30; Stop 05/03/16 at 10:29 Atenolol 50 mg 50 mg DAILY PO Last administered on 05/01/16 11:07; Admin Dose 50 MG; Start 05/01/16 at 10:30 Piperacillin Sod/ Tazobactam Sod (Zosyn 3.375gm/ 100 ml (Pmx)) 100 ml @ 200 mls /hr Q8 IVPB Last administered on 05/01/16 11:42; Admin Dose 200 MLS/HR; Start 05/01/16 at 12:00 Clonidine 0.1 mg 0.1 mg Q6H PRN PO SBP >160 Last administered on 05/01/16 11:06 ; Admin Dose 0.1 MG; Start 05/01/16 at 10:30 Vancomycin HCl/ Sodium Chloride (Vancocin/NS) 250 ml @ 83.333 mls/ hr Q12H IVPB ; Start 05/02/16 at 01:00 Morphine Sulfate (morphine) 2 mg Q4H PRN IV breakthrough pain Last administered on 05/01/16 19:12; Admin Dose 2 MG; Start 05/01/16 at 12:30 Acetaminophen/ Codeine Phosphate 1 tab 1 tab Q6H PRN PO PAIN Last administered on 05/01/16 15:46; Admin Dose 1 TAB; Start 05/01/16 at 12:30 Dextrose/Sodium Chloride (D5-1/2ns) 1,000 ml @ 125 mls/hr Q8H IV Last administered on 05/01/16 16:25; Admin Dose 125 MLS/HR; Start 05/01/16 at 16:30 LEELA VILLANUEVA MD May 01, 2016 21:52
[2016-05-01] MEDS ORDERED: FUROSEMIDE 20 MG INJ IV ONE (22:00)
[2016-05-01] MEDS ORDERED: DIPHENHYDRAMINE 50 MG INJ IV ONE (22:00)
[2016-05-01] MEDS ORDERED: ACETAMINOPHEN 650MG/20.3ML CUP NGT ONE (22:00)
[2016-05-02] VITALS (8 sets, daily range): BP systolic 144–176; BP diastolic 65–81; PULSE 61–66; RESP 16–18
[2016-05-02] MEDS ORDERED: VANCOMYCIN 1.25 GM in SOD CHLORIDE 0.9% 250 ML IVPB SCH (01:00)
[2016-05-02] MEDS: DEXTROSE 5%-0.45% NACL 1,000 ML IV SCH ×3 (01:07→19:48)
[2016-05-02] MEDS: morphine 2 MG INJ IV PRN ×4 (04:38→19:48)
[2016-05-02 05:20] LABS: INR 1.26; PROTIME 15.9 Sec (12.2-14.2); PT RATIO 1.2
[2016-05-02] MEDS: PIPER-TAZO 3.375 GM IV (PMX) 100 ML IVPB SCH ×3 (05:58→21:41)
[2016-05-02 08:13] LABS: BASOPHILS % 0.1 % (0.0-2.0); EOSINOPHILS # 0.4 10^3/ul (0.0-0.5); EOSINOPHILS % 2.2 % (0.0-7.0); HEMATOCRIT 29.1 % (37.0-47.0); HEMOGLOBIN 9.9 g/dl (12.0-16.0); LYMPHOCYTES % 5.2 % (15.0-51.0); MEAN CORPUSCULAR HEMOGLOBIN 31.2 pg (29.0-33.0); MEAN CORPUSCULAR VOLUME 91.8 fl (82.0-101.0); MEAN PLATELET VOLUME 8.5 fl (7.4-10.4); MONOCYTE # 1.1 10^3/ul (0.3-0.9); MONOCYTES % 5.3 % (0.0-11.0); NEUTROPHIL # 17.5 10^3/ul (1.6-7.5); NEUTROPHILS % 87.2 % (39.0-77.0); PLATELET COUNT 193 10^3/UL (140-440); RED BLOOD COUNT 3.17 10^6/ul (4.20-5.40); RED CELL DISTRIBUTION WIDTH 15.8 % (11.5-14.5)
[2016-05-02 08:16] LABS: CONDITION 1; LH ANALYZER COMMENTS 1; SUSPECT 1
[2016-05-02 08:22] LABS: POTASSIUM 3.4 mmol/L (3.5-5.1)
[2016-05-02 08:24] LABS: CREATININE 1.46 mg/dl (0.44-1.00)
[2016-05-02 08:25] LABS: CALCIUM 7.5 mg/dl (8.4-10.2)
[2016-05-02] MEDS: FAMOTIDINE 20 MG INJ IV SCH (09:33)
[2016-05-02] MEDS: ATENOLOL 50 MG TAB PO SCH (09:34)
[2016-05-02] MEDS: ACETAMINOPHEN/CODEINE #3 TAB PO PRN ×2 (12:54→21:41)
[2016-05-02] MEDS: OCTREOTIDE 50 MCG INJ SC SCH ×2 (13:54→22:12)
[2016-05-02] MEDS: ONDANSETRON 4 MG INJ IV PRN (14:20)
--- NOTE | 2016-05-02 15:46 | PN ---
Date/Time of Note Date/Time of Note DATE: 05/02/16 TIME: 15:43 Assessment/Plan VTE Prophylaxis VTE Prophylaxis Intervention: SCD's Lines/Catheters IV Catheter Type (from Nrsg): Saline Lock Urinary Cath still in place: Yes Reason Cath still needed: other (indicate) Assessment/Plan Assessment/Plan 55 yo F with abd pain 2/2 diffuse metastatic disease managed for : 1. Metastatic ovarian cancer. CT scan showing multiple soft tissue masses within the abdomen and pelvis, consistent with metastatic disease. The CT scan also revealed moderate midline upper wall ventral hernia containing multiple loops of small bowel with no evidence of small bowel obstruction. S/P debulking surgery, hernia repair + bowel resection 04/29/16 / continue routine postop care / modify pain regime / appreciate Shipyard Supervisor Onc rec's / monitor drains, UO / PT when pain is better controlled 2. History of left lower extremity deep venous thrombosis - apparently pt had been on Coumadin. INR subtherapeutic. The patient's DVT was diagnosed approximately 8 months ago. However bilateral lower extremity venous Doppler study performed this admission (04/27/16) = neg for DVT. - holding Coumadin at this time - patient may need IVC filter 3. Normocytic normochromic anemia - again, s/p pRBC transfusion on this admission - Will monitor the H and H closely 4. Transaminitis without hyperbilirubinemia. Etiology unclear. from recent surgery versus mets -Will monitor the LFTs closely / trending down at this time - Will avoid any hepatotoxic medications. 5. Essential hypertension - Blood pressure poorly controlled. / patient on sandostatin, may be contributory / will d/c if ok with nurse obgyn onc - Continue antihypertensives. 6. Fluid, electrolytes, and nutrition. -NPO except meds +ice chips / change IVF to D5 1/2 while NPO 7. Leucocytosis: worsened broaden abx coverage / trend levels /ID consult / repeat cultures / encourage ambulation / Incentive Spirometer use Deep venous thrombosis prophylaxis - SCD's Gastrointestinal prophylaxis. Histamine 2 receptor blockers. Subjective 24 Hr Interval Summary Free Text/Dictation Patient seen and examined. feel better than yesterday Exam/Review of Systems Vital Signs Vitals Vital Signs Date Time Temp Pulse Resp B/P Pulse Ox O2 Delivery O2 Flow Rate FiO2 05/02/16 08:19 97.7 63 18 167/79 98 05/01/16 20:00 Nasal Cannula 2.0 Intake and Output 05/01/16 05/01/16 05/02/16 15:00 23:00 07:00 Intake Total 100 ml 1150 ml Output Total 990 ml 495 ml Balance -890 ml 655 ml Exam Constitutional: alert, distress (uncomfortable), obese Psych: anxiety Head: atraumatic, normocephalic Eyes: PERRL, No icteric ENMT: No intubated, No mucosa pink and moist (dry) Neck: supple Respiratory: clear to auscultation, diminished breath sounds, No tactile fremitus Cardiovascular: No regular rate and rhythm (tachycardia) Gastrointestinal: bowel sounds (reduced), soft, surgical scars (midline covered in dressing . clean and dry , drains x2 with bloody fluid, NGT clamped dark green fluid, good vol), tender Extremities: No edema Neurological: lethargic, nl mental status, No focal weakness Results Result Diagram: 05/02/1672205/02/16 0723 Results 24 hrs Laboratory Tests Test 05/02/16 04:30 05/02/16 07:23 05/02/16 12:35 INR International Normalized Ratio 1.26 Prothrombin Time 15.9 H Prothrombin Time Ratio 1.2 Anion Gap 12 Basophils # 0.0 Basophils % 0.1 Blood Morphology Comment Blood Urea Nitrogen 22 H Calcium Level 7.5 L Carbon Dioxide Level 25 Chloride Level 108 Creatinine 1.46 H Eosinophils # 0.4 Eosinophils % 2.2 Glucose Level 103 Hematocrit 29.1 L Hemoglobin 9.9 L Lymphocytes # 1.0 Lymphocytes % 5.2 L Mean Corpuscular Hemoglobin 31.2 Mean Corpuscular Hemoglobin Concent 34.0 Mean Corpuscular Volume 91.8 Mean Platelet Volume 8.5 Monocytes # 1.1 H Monocytes % 5.3 Neutrophils # 17.5 H Neutrophils % 87.2 H Nucleated Red Blood Cells # 0.0 Nucleated Red Blood Cells % 0.0 Platelet Count 193 Potassium Level 3.4 L Red Blood Count 3.17 L Red Cell Distribution Width 15.8 H Sodium Level 142 White Blood Count 20.0 H Vancomycin Level Trough 24.6 *H Medications Medications Current Medications Hydralazine HCl (Apresoline) 10 mg Q6H PRN IV SBP>160 Last administered on t 08:31; Admin Dose 10 MG; Start 04/26/16 at 11:00 Ondansetron HCl (Zofran Inj) 4 mg Q6H PRN IV NAUSEA AND/OR VOMITING Last administered on 05/02/16 14:20; Admin Dose 4 MG; Start 04/28/16 at 21:00 Atenolol 50 mg 50 mg DAILY PO Last administered on 05/02/16 09:34; Admin Dose 50 MG; Start 05/01/16 at 10:30 Piperacillin Sod/ Tazobactam Sod (Zosyn 3.375gm/ 100 ml (Pmx)) 100 ml @ 200 mls /hr Q8 IVPB Last administered on 05/02/16 13:54; Admin Dose 200 MLS/HR; Start 05/01/16 at 12:00 Clonidine (Catapres) 0.1 mg Q6H PRN PO SBP >160 Last administered on 05/01/16 11:06; Admin Dose 0.1 MG; Start 05/01/16 at 10:30 Morphine Sulfate (morphine) 2 mg Q4H PRN IV breakthrough pain Last administered on 05/02/16 14:57; Admin Dose 2 MG; Start 05/01/16 at 12:30 Acetaminophen/ Codeine Phosphate 1 tab 1 tab Q6H PRN PO PAIN Last administered on 05/02/16 12:54; Admin Dose 1 TAB; Start 05/01/16 at 12:30 Dextrose/Sodium Chloride (D5-1/2ns) 1,000 ml @ 100 mls/hr Q10H IV Last administered on 05/02/16 09:33; Admin Dose 100 MLS/HR; Start 05/01/16 at 16:30 Octreotide Acetate 50 mcg 50 mcg TID SC Last administered on 05/02/16 13:54; Admin Dose 50 MCG; Start 05/02/16 at 13:00 Vancomycin HCl/ Sodium Chloride (Vancocin/NS) 250 ml @ 83.333 mls/ hr Q24H IVPB ; Start 05/03/16 at 03:00 Famotidine (Pepcid Iv) 20 mg DAILY IV ; Start 05/03/16 at 09:00 ABDIRIZAK VARGAS May 02, 2016 15:46
--- NOTE | 2016-05-02 23:29 | PN ---
Date/Time of Note Date/Time of Note DATE: 05/02/16 TIME: 23:27 Assessment/Plan VTE Prophylaxis VTE Prophylaxis Intervention: LMWH Lines/Catheters IV Catheter Type (from Nrs): Saline Lock Urinary Cath still in place: Yes Assessment/Plan Chief Complaint/Hosp Course Ovarian cancer with hernia and possible SBO and recurrence. Problems: Assessment/Plan A- doing adequately P- TPN and sanostatin and mobilise Subjective 24 Hr Interval Summary Free Text/Dictation S- better pain adequate and questionable flatus . O Resp- clear CVS- NSR Abd- soft, appropriate tenderness, clean with KORIN output Ext- NT no edema A- doing adequately P- TPN and sanostatin and mobilise Exam/Review of Systems Vital Signs Vitals Vital Signs Date Time Temp Pulse Resp B/P Pulse Ox O2 Delivery O2 Flow Rate FiO2 05/02/16 19:36 98.3 62 16 176/79 99 05/02/16 08:40 Nasal Cannula 2.0 Intake and Output 05/01/16 05/01/16 05/02/16 15:00 23:00 07:00 Intake Total 100 ml 1150 ml Output Total 990 ml 495 ml Balance -890 ml 655 ml Results Result Diagram: 05/02/1672205/02/16 0723 Results 24 hrs Laboratory Tests Test 05/02/16 04:30 05/02/16 07:23 05/02/16 12:35 INR International Normalized Ratio 1.26 Prothrombin Time 15.9 H Prothrombin Time Ratio 1.2 Anion Gap 12 Basophils # 0.0 Basophils % 0.1 Blood Morphology Comment Blood Urea Nitrogen 22 H Calcium Level 7.5 L Carbon Dioxide Level 25 Chloride Level 108 Creatinine 1.46 H Eosinophils # 0.4 Eosinophils % 2.2 Glucose Level 103 Hematocrit 29.1 L Hemoglobin 9.9 L Lymphocytes # 1.0 Lymphocytes % 5.2 L Mean Corpuscular Hemoglobin 31.2 Mean Corpuscular Hemoglobin Concent 34.0 Mean Corpuscular Volume 91.8 Mean Platelet Volume 8.5 Monocytes # 1.1 H Monocytes % 5.3 Neutrophils # 17.5 H Neutrophils % 87.2 H Nucleated Red Blood Cells # 0.0 Nucleated Red Blood Cells % 0.0 Platelet Count 193 Potassium Level 3.4 L Red Blood Count 3.17 L Red Cell Distribution Width 15.8 H Sodium Level 142 White Blood Count 20.0 H Vancomycin Level Trough 24.6 *H Medications Medications Current Medications Hydralazine HCl (Apresoline) 10 mg Q6H PRN IV SBP>160 Last administered on 08:31; Admin Dose 10 MG; Start 04/26/16 at 11:00 Ondansetron HCl (Zofran Inj) 4 mg Q6H PRN IV NAUSEA AND/OR VOMITING Last administered on 05/02/16 14:20; Admin Dose 4 MG; Start 04/28/16 at 21:00 Atenolol 50 mg 50 mg DAILY PO Last administered on 05/02/16 09:34; Admin Dose 50 MG; Start 05/01/16 at 10:30 Piperacillin Sod/ Tazobactam Sod (Zosyn 3.375gm/ 100 ml (Pmx)) 100 ml @ 200 mls /hr Q8 IVPB Last administered on 05/02/16 21:41; Admin Dose 200 MLS/HR; Start 05/01/16 at 12:00 Clonidine (Catapres) 0.1 mg Q6H PRN PO SBP >160 Last administered on 05/01/16 11:06; Admin Dose 0.1 MG; Start 05/01/16 at 10:30 Morphine Sulfate (morphine) 2 mg Q4H PRN IV breakthrough pain Last administered on 05/02/16 19:48; Admin Dose 2 MG; Start 05/01/16 at 12:30 Acetaminophen/ Codeine Phosphate 1 tab 1 tab Q6H PRN PO PAIN Last administered on 05/02/16 21:41; Admin Dose 1 TAB; Start 05/01/16 at 12:30 Dextrose/Sodium Chloride (D5-1/2ns) 1,000 ml @ 100 mls/hr Q10H IV Last administered on 05/02/16 19:48; Admin Dose 100 MLS/HR; Start 05/01/16 at 16:30 Octreotide Acetate 50 mcg 50 mcg TID SC Last administered on 05/02/16 22:12; Admin Dose 50 MCG; Start 05/02/16 at 13:00 Vancomycin HCl/ Sodium Chloride (Vancocin/NS) 250 ml @ 83.333 mls/ hr Q24H IVPB ; Start 05/03/16 at 03:00 Famotidine (Pepcid Iv) 20 mg DAILY IV ; Start 05/03/16 at 09:00 LEELA VILLANUEVA MD May 02, 2016 23:29
[2016-05-03] VITALS (7 sets, daily range): BP systolic 149–199; BP diastolic 70–91; PULSE 62–85; RESP 18–20
[2016-05-03] MEDS: morphine 2 MG INJ IV PRN ×3 (00:51→22:19)
[2016-05-03] MEDS ORDERED: VANCOMYCIN 1.25 GM in SOD CHLORIDE 0.9% 250 ML IVPB SCH (03:00)
[2016-05-03] MEDS: DEXTROSE 5%-0.45% NACL 1,000 ML IV SCH ×2 (07:07→10:30)
[2016-05-03 07:14] LABS: EOSINOPHILS # 0.5 10^3/ul (0.0-0.5); EOSINOPHILS % 2.8 % (0.0-7.0); HEMATOCRIT 29.6 % (37.0-47.0); MEAN CORPUSCULAR HEMOGLOBIN 30.9 pg (29.0-33.0); MEAN CORPUSCULAR HGB CONC 33.9 g/dl (32.0-37.0); MEAN CORPUSCULAR VOLUME 91.2 fl (82.0-101.0); MEAN PLATELET VOLUME 8.4 fl (7.4-10.4); MONOCYTE # 1.2 10^3/ul (0.3-0.9); MONOCYTES % 7.3 % (0.0-11.0); NEUTROPHIL # 13.6 10^3/ul (1.6-7.5); NEUTROPHILS % 83.9 % (39.0-77.0); PLATELET COUNT 217 10^3/UL (140-440); RED BLOOD COUNT 3.25 10^6/ul (4.20-5.40); RED CELL DISTRIBUTION WIDTH 15.2 % (11.5-14.5); UNCORRECTED WBC 16.2 10^3/ul (4.8-10.8); WHITE BLOOD COUNT 16.2 10^3/ul (4.8-10.8)
[2016-05-03 07:16] LABS: CONDITION 1; LH ANALYZER COMMENTS 1; SUSPECT 1
[2016-05-03] MEDS: PIPER-TAZO 3.375 GM IV (PMX) 100 ML IVPB SCH ×3 (07:21→22:55)
[2016-05-03] MEDS: hydrALAzine 20 MG INJ IV PRN ×2 (07:23→21:13)
[2016-05-03 07:27] LABS: POTASSIUM 3.5 mmol/L (3.5-5.1)
[2016-05-03 07:29] LABS: CREATININE 2.08 mg/dl (0.44-1.00)
[2016-05-03 07:30] LABS: CALCIUM 7.5 mg/dl (8.4-10.2)
[2016-05-03] MEDS: OCTREOTIDE 50 MCG INJ SC SCH ×3 (08:46→21:14)
[2016-05-03] MEDS: FAMOTIDINE 20 MG INJ IV SCH (08:46)
[2016-05-03] MEDS: ATENOLOL 50 MG TAB PO SCH (08:47)
[2016-05-03] MEDS: ONDANSETRON 4 MG INJ IV PRN ×2 (09:14→21:13)
[2016-05-03 09:57] LABS: ANISOCYTOSIS 1+
--- NOTE | 2016-05-03 10:59 | PN ---
Date/Time of Note Date/Time of Note DATE: 05/03/16 TIME: 10:52 Assessment/Plan VTE Prophylaxis VTE Prophylaxis Intervention: SCD's Lines/Catheters IV Catheter Type (from Nrsg): Saline Lock Urinary Cath still in place: Yes Reason Cath still needed: other (indicate) Assessment/Plan Assessment/Plan 55 yo F with abd pain 2/2 diffuse metastatic disease managed for : 1. Metastatic ovarian cancer. CT scan showing multiple soft tissue masses within the abdomen and pelvis, consistent with metastatic disease. The CT scan also revealed moderate midline upper wall ventral hernia containing multiple loops of small bowel with no evidence of small bowel obstruction. S/P debulking surgery, hernia repair + bowel resection 04/29/16 / continue routine postop care / modify pain regime / appreciate Bottom Polisher Onc rec's / monitor drains, UO / PT when pain is better controlled 2. History of left lower extremity deep venous thrombosis - apparently pt had been on Coumadin. INR subtherapeutic. The patient's DVT was diagnosed approximately 8 months ago. However bilateral lower extremity venous Doppler study performed this admission (04/27/16) = neg for DVT. - holding Coumadin at this time - patient may need IVC filter 3. Normocytic normochromic anemia - again, s/p pRBC transfusion on this admission - Will monitor the H and H closely 4. Transaminitis without hyperbilirubinemia. Etiology unclear. from recent surgery versus mets -Will monitor the LFTs closely / trending down at this time - Will avoid any hepatotoxic medications. 5. Essential hypertension - Blood pressure poorly controlled. / patient on sandostatin, may be contributory / will d/c if ok with obstetrics gynecology md onc - Continue antihypertensives. 6. Fluid, electrolytes, and nutrition. -NPO except meds +ice chips / NGT still draining / change IVF to D5 1/2 while NPO 7. SIRS: improved with broadened abx coverage / trend levels /ID consult / repeat cultures all negative so far / encourage ambulation / Incentive Spirometer use Deep venous thrombosis prophylaxis - SCD's Gastrointestinal prophylaxis. Histamine 2 receptor blockers. Subjective 24 Hr Interval Summary Free Text/Dictation Patient seen and examined. having more nausea today per nursing was sleeping comfortably when I saw her Exam/Review of Systems Vital Signs Vitals Vital Signs Date Time Temp Pulse Resp B/P Pulse Ox O2 Delivery O2 Flow Rate FiO2 05/03/16 10:32 85 185/85 05/03/16 08:05 98.3 20 98 05/02/16 20:00 Nasal Cannula 2.0 Intake and Output 05/02/16 05/02/16 05/03/16 15:00 23:00 07:00 Intake Total 100 ml 1250 ml 1285 ml Output Total 1140 ml 875 ml Balance 100 ml 110 ml 410 ml Exam Constitutional: alert, looks ill, obese Psych: anxiety Head: atraumatic, normocephalic Eyes: PERRL, No icteric ENMT: No intubated, No mucosa pink and moist (dry) Neck: supple Respiratory: clear to auscultation, diminished breath sounds, No tactile fremitus Cardiovascular: No regular rate and rhythm (tachycardia) Gastrointestinal: bowel sounds (reduced), soft, surgical scars (midline covered in dressing . clean and dry , drains x2 with bloody fluid, NGT dark green fluid, good vol), tender Extremities: No edema Neurological: lethargic, nl mental status, No focal weakness Results Result Diagram: 05/03/1635 05/03/16 0635 Results 24 hrs Laboratory Tests Test 05/02/16 12:35 05/03/16 06:35 Vancomycin Level Trough 24.6 *H Anion Gap 13 Anisocytosis 1+ Basophils # 0.0 Basophils % 0.0 Blood Morphology Comment Blood Urea Nitrogen 30 H Calcium Level 7.5 L Carbon Dioxide Level 24 Chloride Level 108 Creatinine 2.08 H Differential Comment AUTO w/SCAN Eosinophils # 0.5 Eosinophils % 2.8 Glucose Level 80 Hematocrit 29.6 L Hemoglobin 10.0 L Lymphocytes # 1.0 Lymphocytes % 6.0 L Mean Corpuscular Hemoglobin 30.9 Mean Corpuscular Hemoglobin Concent 33.9 Mean Corpuscular Volume 91.2 Mean Platelet Volume 8.4 Monocytes # 1.2 H Monocytes % 7.3 Neutrophils # 13.6 H Neutrophils % 83.9 H Nucleated Red Blood Cells # 0.0 Nucleated Red Blood Cells % 0.0 Platelet Count 217 Potassium Level 3.5 Red Blood Count 3.25 L Red Cell Distribution Width 15.2 H Sodium Level 141 White Blood Count 16.2 H Medications Medications Current Medications Hydralazine HCl (Apresoline) 10 mg Q6H PRN IV SBP>160 Last administered on 05/03t 07:23; Admin Dose 10 MG; Start 04/26/16 at 11:00 Ondansetron HCl (Zofran Inj) 4 mg Q6H PRN IV NAUSEA AND/OR VOMITING Last administered on 05/03/16 09:14; Admin Dose 4 MG; Start 04/28/16 at 21:00 Atenolol 50 mg 50 mg DAILY PO Last administered on 05/03/16 08:47; Admin Dose 50 MG; Start 05/01/16 at 10:30 Piperacillin Sod/ Tazobactam Sod (Zosyn 3.375gm/ 100 ml (Pmx)) 100 ml @ 200 mls /hr Q8 IVPB Last administered on 05/03/16 07:21; Admin Dose 200 MLS/HR; Start 05/01/16 at 12:00 Clonidine (Catapres) 0.1 mg Q6H PRN PO SBP >160 Last administered on 05/01/16 11:06; Admin Dose 0.1 MG; Start 05/01/16 at 10:30 Morphine Sulfate (morphine) 2 mg Q4H PRN IV breakthrough pain Last administered on 05/03/16 05:55; Admin Dose 2 MG; Start 05/01/16 at 12:30 Acetaminophen/ Codeine Phosphate 1 tab 1 tab Q6H PRN PO PAIN Last administered on 05/02/16 21:41; Admin Dose 1 TAB; Start 05/01/16 at 12:30 Dextrose/Sodium Chloride (D5-1/2ns) 1,000 ml @ 100 mls/hr Q10H IV Last administered on 05/03/16 10:30; Admin Dose 100 MLS/HR; Start 05/01/16 at 16:30 Octreotide Acetate 50 mcg 50 mcg TID SC Last administered on 05/03/16 08:46; Admin Dose 50 MCG; Start 05/02/16 at 13:00 Vancomycin HCl/ Sodium Chloride (Vancocin/NS) 250 ml @ 83.333 mls/ hr Q24H IVPB Last administered on 05/03/16 03:47; Admin Dose 83.333 MLS/HR; Start 03/09 at 03:00 Famotidine (Pepcid Iv) 20 mg DAILY IV Last administered on 05/03/16 08:46; Admin Dose 20 MG; Start 05/03/16 at 09:00 Hydralazine HCl (Apresoline) 10 mg ONCE ONCE IV ; Start 05/03/16 at 11:00; Stop 05/03/16 at 11:01 Hydralazine HCl (Apresoline) 10 mg Q6 IV ; Start 05/03/16 at 12:00 ABDIRIZAK VARGAS May 03, 2016 10:59
[2016-05-03] MEDS ORDERED: hydrALAzine 20 MG INJ IV ONE (11:00)
[2016-05-03] MEDS: hydrALAzine 20 MG INJ IV SCH ×2 (11:42→17:38)
[2016-05-03 14:42] LABS: ADD UMIC YES; URINE BILIRUBIN (Dip) NEGATIVE (NEGATIVE); URINE BLOOD (Dip) TRACE (NEGATIVE); URINE COLOR LT. YELLOW (YELLOW); URINE GLUCOSE (Dip) NEGATIVE (NEGATIVE); URINE KETONES (Dip) NEGATIVE (NEGATIVE); URINE LEUKOCYTE ESTERASE (Dip) NEGATIVE (NEGATIVE); URINE NITRITE (Dip) NEGATIVE (NEGATIVE); URINE TOTAL PROTEIN (Dip) NEGATIVE (NEGATIVE); URINE UROBILINOGEN (Dip) 0.2 E.U./dL (0.1-1.0)
--- NOTE | 2016-05-03 16:10 | CONS ---
DATE OF ADMISSION: 04/26/2016 DATE OF CONSULTATION: TYPE OF CONSULTATION: Nephrology. REASON FOR CONSULTATION: Acute kidney injury. REQUESTING PHYSICIAN: Dr. Gresham HISTORY OF PRESENT ILLNESS: This is a 55-year-old with primary ovarian cancer that was diagnosed ap proximately 1 month ago. The patient is being followed by Dr. Perez, who is her oncologic surge on. The patient came to [facility] due to worsening abdominal pain, and she was s ubsequently admitted. During the course of her workup, the patient was noted to have metastatic ova arturo cancer with multiple mets noted in the abdomen. The patient underwent surgical resection of th e ovarian cancer including a celiac node debulking, ventral hernia repair and residual omentectomy. Following the procedure, the patient was on med/surg. She has been noted to be hypertensive with systolic pressures greater than 200. During this time, the patient has been receiving some Simvasta tin and she has been receiving antihypertensive medications. The patient has also been on antibioti c therapy. In terms of the patient's renal history, upon admission, the patient had a creatinine of 0.79 mg/d L. Her kidney function has fluctuated as high as 1.61 mg/dL before returning back to baseline. The patient, however, in the last 48 hours noted increase in her creatinine to 2.08 mg/dL. During this time, the patient has been on vancomycin with toxic levels of 24.6. The patient also had signific ant hypotension and hemodynamic fluctuations. There have been no reports of hemoptysis, hemetemesis , hematochezia. PAST MEDICAL HISTORY: As stated above, history of hypertension, history of blood clots, history of ovarian cancer. PAST SURGICAL HISTORY: Status post abdominal hysterectomy, sigmoid colon resection. MEDICATIONS: Have been reviewed. ALLERGIES: NO KNOWN DRUG ALLERGIES. FAMILY HISTORY: No family history ____disease. SOCIAL HISTORY: Does not drink, smoke or do drugs. REVIEW OF SYSTEMS: A 14-point review of systems was conducted. Pertinent positives as stated in HP I, otherwise negative. PHYSICAL EXAMINATION: VITAL SIGNS: Blood pressure currently is 160/82, respirations 16, pulse 72, temperature 98.0. HEENT: Head is normocephalic. Pupils are reactive to light. NECK: Supple. HEART: Regular rate. LUNGS: Show diminished breath sounds at base. ABDOMEN: Positive for a dressing over her laparotomy incision and scar with noted KORIN drains. Mild tenderness to palpation. EXTREMITIES: Negative for clubbing, cyanosis, edema. DERMATOLOGIC: No rashes. MUSCULOSKELETAL: No joint effusions. NEUROLOGIC: No change in exam. MEDICATIONS: The patient's medications have been reviewed. LABORATORY DATA: Shows sodium 141, potassium ____5, chloride 108, BUN 30, creatinine 2.08. White c ount 16.2, hemoglobin 10.0, hematocrit 29.6, platelet count 217. The patient's urine cultures, bloo d cultures have been negative. ASSESSMENT AND PLAN: This is a 55-year-old female who presents with: 1. Nonoliguric acute kidney injury with a previous baseline creatinine of around 0.9 mg/dL. Etiolo gy of acute kidney injury is worrisome for possible acute tubular necrosis due to vancomycin associa maria a nephrotoxicity, hemodynamic fluctuations, hypertensive urgency. The patient's urinalysis showed no evidence of active sediment. Therefore, low suspicion for acute glomerulonephritis, vasculitis or interstitial nephritis. Plan at this point is to check a renal ultrasound to rule out any form o f obstruction, although suspicion is low. Would recommend to hold vancomycin. Would also continue blood pressure medications and avoiding significant hemodynamic fluctuations, which can cause a rela tive renal hypoperfusion precipitating tubular injury. Would otherwise continue current treatment p ponce. We will also recheck urinalysis and urine electrolytes, and calculate a FENa. 2. Anemia of chronic disease. Continue to monitor hemoglobin and hematocrit levels. 3. Metabolic disorder. Will monitor calcium and phosphorus levels. Check a PTH, vitamin D25 level . 4. Hypertensive urgency. Etiology is multifactorial secondary to medications ____ pain. Agree wit h current treatment plan. Continue current blood pressure regimen. Adjust medications as needed. May consider discontinuing octreotide if possible. We will also decrease rate of IV fluids. Will m onitor closely. 5. Metastatic ovarian cancer. The patient is status post debulking surgery, hernia repair and faiza l resection. Continue to monitor. Follow up with DIRECTOR OF BROADCAST/Onc. 6. History of deep venous thrombosis. Continue current medical management. The patient is being c onsidered for possible IVC filter. 7. Transaminitis. Continue to monitor. 8. SIRS. The patient is on empiric antibiotic therapy. May consider discontinuing antibiotics if cultures have been negative. We will defer to primary team and infectious disease. Thank you, Dr. Gresham, for this interesting consult. It will be a pleasure to follow the patient with you throughout the hospital course. Dictated By: JAHAIRA FELICIANO/COLTON Conf#: [id number] DID#: [id number]
--- NOTE | 2016-05-03 17:11 | RADRPT ---
PROCEDURE: Retroperitoneal US. CLINICAL INDICATION: tariq TECHNIQUE: Multiple sonographic images of the retroperitoneum were obtained. The images were revi ewed on a PACS workstation. COMPARISON: No prior studies are available for comparison. FINDINGS: The right kidney measures 12.5 x 4.8 x 5.3 cm. The left kidney measures 12.0 x 7.2 x 6.0 cm. The renal parenchymal echotexture is normal. There is no hydronephrosis. There is no focal renal mass or calcification seen. The bladder is collapsed around a Elizalde catheter balloon which limits evaluation. IMPRESSION: Bilateral kidneys are unremarkable. The bladder is collapsed around a Elizalde catheter balloon which limits evaluation. RPTAT: EE Physician Jamari Date Time Electronically viewed and signed by Physician Jamari on 05/03/2016 17:11 /
--- NOTE | 2016-05-03 17:13 | RADRPT ---
PROCEDURE: XR Chest. CLINICAL INDICATION: leukocytosis TECHNIQUE: Single frontal view of the chest was obtained. COMPARISON: Chest x-ray from 04/25/2016 FINDINGS: There has been interval placement of enteric tube which projects past the diaphragm and is likely in the stomach. The right chest wall Port-A-Cath is again noted. The heart and mediastinum are within normal limits. There is a small left pleural effusion as well as obscuration of the left hemidiaphragm due to atele ctasis, infiltrate, and / or effusion. IMPRESSION: New small left pleural effusion and obscuration of the left hemidiaphragm due to atelectasis, infilt rate, and / or effusion. Interval placement of an enteric tube in the stomach. Right chest wall Port-A-Cath is again noted. RPTAT: EE Physician Jamari Date Time Electronically viewed and signed by Physician Jamari on 05/03/2016 17:12 /
--- NOTE | 2016-05-03 18:03 | CONS ---
DATE OF ADMISSION: 04/26/2016 DATE OF CONSULTATION: 05/03/2016 TYPE OF CONSULTATION: Infectious Disease. REASON FOR CONSULTATION: Antibiotic management. HISTORY OF PRESENT ILLNESS: Liana Collier is a pleasant 55-year-old female who came in with abdomin al pain and back pain and is being seen status post debulking procedure for antibiotic management. The patient's problems include: 1. Known history of ovarian cancer diagnosed in 2013. 2. Status post total abdominal hysterectomy and debulking surgery as well as multiple rounds of anderson motherapy. The patient stopped chemotherapy 2 months ago and developed new metastasis in the abdome n. She is being followed by Dr. Perez. Other problems include brain cancer diagnosed in 2013, p ossible metastasis, status post total abdominal hysterectomy as noted, status post debulking procedu re. 3. Hypertension. 4. Blood clots x2 on Coumadin. 5. Breast augmentation. On admission, her white count was 9.6, hemoglobin 7, platelets 257,000. Her BUN and creatinine on a dmission was 23/0.79. HOSPITAL COURSE: The patient was taken for surgery on 04/29/[address] Perez. The diagnosis wa s recurrent ovarian cancer. She had a sigmoid colon resection and anastomosis, bilateral ureteral d issection with repositioning of the ureter and ureterolysis of residual omentectomy with splenectom y and distal pancreatectomy, celiac node debulking, retroperitoneal node debulking, cytoreduction, v entral hernia repair, enterolysis. Blood cultures and urine cultures are negative. Her white count today is 16,200. She was on vancomycin, now she is on Zosyn alone. PAST MEDICAL HISTORY: Operations as outlined. FAMILY HISTORY: Noncontributory. SOCIAL HISTORY: She does not smoke, drink or abuse drugs. ALLERGIES: NONE TO PENICILLIN, SULFA OR FOODS. MEDICATIONS: Per chart. REVIEW OF SYSTEMS: Noncontributory. PHYSICAL EXAMINATION: GENERAL: The patient is a markedly obese female who is alert, responsive, in no acute distress. VITAL SIGNS: Stable. She is afebrile. SKIN: Without generalized rash. HEENT: Within normal limits. NECK: Supple. LYMPH NODES: None palpable. THORAX: She has a Port-A-Cath. CHEST: Decreased breath sounds at the bases. HEART: Without murmur or gallop. ABDOMEN: She has surgical scars. Midline is covered in dressings, clean and dry. She has drains x2 with bloody fluid and NG tub. The abdomen is tender. EXTREMITIES: Without cyanosis, clubbing, or edema. RECTAL AND GENITAL: Deferred. NEUROLOGIC: No focal neurological abnormalities. She has a Elizalde catheter in place, and as noted, a Port-A-Cath. IMPRESSION AND PLAN: At the present time, the patient appears to be doing better, although her whit e count is still quite elevated. She was on, as noted, vancomycin and Zosyn. We will check on her urine cultures and chest x-ray. I will dictate my findings to the hospitalist and to Dr. Perez. Dictated By: CARI ENGEL MD, JD/COLTON Conf#: [id number] DID#: [id number]
[2016-05-03] MEDS ORDERED: TPN 1,000 ML IV SCH (19:00)
[2016-05-03] MEDS: ACCUCHECK XX SCH (20:00)
[2016-05-03] MEDS: TPN 1,000 ML IV SCH (21:10)
--- NOTE | 2016-05-03 22:34 | PN ---
Date/Time of Note Date/Time of Note DATE: 05/03/16 TIME: 22:32 Assessment/Plan VTE Prophylaxis VTE Prophylaxis Intervention: SCD's Lines/Catheters IV Catheter Type (from Nrs): Saline Lock Urinary Cath still in place: Yes Assessment/Plan Chief Complaint/Hosp Course Ovarian cancer with hernia and possible SBO and recurrence. Problems: Assessment/Plan A- doing adequately P- continue TPN and sanostatin and will try to d/c NGT a.m. Subjective 24 Hr Interval Summary Free Text/Dictation S- better pain adequate and + flatus . O Resp- clear CVS- NSR Abd- soft, appropriate tenderness, clean with KORIN output Ext- NT no edema A- doing adequately P- continue TPN and sanostatin and will try to d/c NGT a.m. Exam/Review of Systems Vital Signs Vitals Vital Signs Date Time Temp Pulse Resp B/P Pulse Ox O2 Delivery O2 Flow Rate FiO2 05/03/16 20:58 98.1 69 18 173/74 99 05/03/16 18:12 2.0 05/03/16 09:00 Nasal Cannula Intake and Output 05/02/16 05/02/16 05/03/16 15:00 23:00 07:00 Intake Total 100 ml 1250 ml 1285 ml Output Total 1140 ml 875 ml Balance 100 ml 110 ml 410 ml Results Result Diagram: 05/03/16 0635 05/03/16 0635 Results 24 hrs Laboratory Tests Test 05/03/16 06:35 05/03/16 13:40 05/03/16 21:11 Anion Gap 13 Anisocytosis 1+ Basophils # 0.0 Basophils % 0.0 Blood Morphology Comment Blood Urea Nitrogen 30 H Calcium Level 7.5 L Carbon Dioxide Level 24 Chloride Level 108 Creatinine 2.08 H Differential Comment AUTO w/SCAN Eosinophils # 0.5 Eosinophils % 2.8 Glucose Level 80 Hematocrit 29.6 L Hemoglobin 10.0 L Lymphocytes # 1.0 Lymphocytes % 6.0 L Mean Corpuscular Hemoglobin 30.9 Mean Corpuscular Hemoglobin Concent 33.9 Mean Corpuscular Volume 91.2 Mean Platelet Volume 8.4 Monocytes # 1.2 H Monocytes % 7.3 Neutrophils # 13.6 H Neutrophils % 83.9 H Nucleated Red Blood Cells # 0.0 Nucleated Red Blood Cells % 0.0 Platelet Count 217 Potassium Level 3.5 Red Blood Count 3.25 L Red Cell Distribution Width 15.2 H Sodium Level 141 White Blood Count 16.2 H Urine Bilirubin NEGATIVE Urine Clarity CLEAR Urine Color LT. YELLOW Urine Epithelial Cells RARE Urine Glucose NEGATIVE Urine Hemoglobin TRACE Urine Ketones NEGATIVE Urine Leukocyte Esterase NEGATIVE Urine Microscopic RBC 2-5 Urine Microscopic WBC NONE SEEN Urine Nitrite NEGATIVE Urine Random Creatinine 43.29 Urine Random Sodium 96 H Urine Specific [place] 1.015 Urine Total Protein Urine Urobilinogen 0.2 E.U./dL Urine pH 5.5 Bedside Glucose 111 Medications Medications Current Medications Hydralazine HCl (Apresoline) 10 mg Q6H PRN IV SBP>160 Last administered on 05/03 21:13; Admin Dose 10 MG; Start 04/26/16 at 11:00 Ondansetron HCl (Zofran Inj) 4 mg Q6H PRN IV NAUSEA AND/OR VOMITING Last administered on 05/03/16 21:13; Admin Dose 4 MG; Start 04/28/16 at 21:00 Atenolol 50 mg 50 mg DAILY PO Last administered on 05/03/16 08:47; Admin Dose 50 MG; Start 05/01/16 at 10:30 Piperacillin Sod/ Tazobactam Sod (Zosyn 3.375gm/ 100 ml (Pmx)) 100 ml @ 200 mls /hr Q8 IVPB Last administered on 05/03/16 13:23; Admin Dose 200 MLS/HR; Start 05/01/16 at 12:00 Clonidine (Catapres) 0.1 mg Q6H PRN PO SBP >160 Last administered on 05/01/16 11:06; Admin Dose 0.1 MG; Start 05/01/16 at 10:30 Morphine Sulfate (morphine) 2 mg Q4H PRN IV breakthrough pain Last administered on 05/03/16 22:19; Admin Dose 2 MG; Start 05/01/16 at 12:30 Acetaminophen/ Codeine Phosphate (Tylenol No.3) 1 tab Q6H PRN PO PAIN Last administered on 05/02/16 21:41; Admin Dose 1 TAB; Start 05/01/16 at 12:30 Octreotide Acetate 50 mcg 50 mcg TID SC Last administered on 05/03/16 21:14; Admin Dose 50 MCG; Start 05/02/16 at 13:00 Vancomycin HCl/ Sodium Chloride (Vancocin/NS) 250 ml @ 83.333 mls/ hr Q24H IVPB Last administered on 05/03/16 03:47; Admin Dose 83.333 MLS/HR; Start 03/09 at 03:00; Status Future Hold Famotidine (Pepcid Iv) 20 mg DAILY IV Last administered on 05/03/16 08:46; Admin Dose 20 MG; Start 05/03/16 at 09:00 Hydralazine HCl 10 mg 10 mg Q6 IV Last administered on 05/03/16 17:38; Admin Dose 10 MG; Start 05/03/16 at 12:00 Total Parenteral Nutrition (Tpn) 1,000 ml @ 90 mls/hr Q11H7M IV Last administered on 05/03/16 21:10; Admin Dose 90 MLS/HR; Start 05/03/16 at 20:00 Diagnostic Test (Pha) (Accucheck) 1 ea Q6H XX Last administered on 05/03/16 20 :00; Admin Dose 1 EA; Start 05/03/16 at 20:00; Stop 05/04/16 at 14:01 Diagnostic Test (Pha) (Accucheck) 1 ea Q12 XX ; Start 05/04/16 at 21:00 LEELA VILLANUEVA MD May 03, 2016 22:34
[2016-05-04] VITALS (9 sets, daily range): BP systolic 141–197; BP diastolic 67–93; PULSE 55–65; RESP 16–19
[2016-05-04] MEDS: hydrALAzine 20 MG INJ IV SCH ×4 (01:00→18:31)
[2016-05-04] MEDS: ACCUCHECK XX SCH ×4 (02:31→21:23)
[2016-05-04 06:06] LABS: MAGNESIUM 1.7 mg/dl (1.7-2.5); PHOSPHORUS 4.2 mg/dl (2.5-4.9)
[2016-05-04 06:12] LABS: PREALBUMIN 6.8 mg/dl (17.6-36.0)
[2016-05-04 06:18] LABS: ALBUMIN 2.7 g/dl (3.3-4.9)
[2016-05-04 06:21] LABS: BILIRUBIN,INDIRECT 0.4 mg/dl (0-1.1); BILIRUBIN,TOTAL 0.4 mg/dl (0.2-1.3); TOTAL PROTEIN 6.3 g/dl (6.1-8.1)
[2016-05-04] MEDS: PIPER-TAZO 3.375 GM IV (PMX) 100 ML IVPB SCH ×3 (06:35→22:44)
[2016-05-04 06:51] LABS: ALBUMIN 2.7 g/dl (3.3-4.9)
[2016-05-04 06:52] LABS: POTASSIUM 3.8 mmol/L (3.5-5.1)
[2016-05-04 06:54] LABS: ALBUMIN/GLOBULIN RATIO 0.77; BILIRUBIN,INDIRECT 0.4 mg/dl (0-1.1); BILIRUBIN,TOTAL 0.4 mg/dl (0.2-1.3); CREATININE 2.29 mg/dl (0.44-1.00); TOTAL PROTEIN 6.2 g/dl (6.1-8.1)
[2016-05-04 06:55] LABS: CALCIUM 8.3 mg/dl (8.4-10.2)
[2016-05-04] MEDS: TPN 1,000 ML IV SCH ×2 (07:07→17:51)
[2016-05-04 08:08] LABS: EOSINOPHILS # 0.2 10^3/ul (0.0-0.5); EOSINOPHILS % 1.1 % (0.0-7.0); HEMATOCRIT 31.3 % (37.0-47.0); HEMOGLOBIN 10.5 g/dl (12.0-16.0); LYMPHOCYTES # 0.9 10^3/ul (0.8-2.9); LYMPHOCYTES % 6.2 % (15.0-51.0); MEAN CORPUSCULAR HGB CONC 33.7 g/dl (32.0-37.0); MEAN PLATELET VOLUME 8.6 fl (7.4-10.4); MONOCYTE # 1.4 10^3/ul (0.3-0.9); MONOCYTES % 9.6 % (0.0-11.0); NEUTROPHIL # 12.5 10^3/ul (1.6-7.5); NEUTROPHILS % 83.1 % (39.0-77.0); PLATELET COUNT 284 10^3/UL (140-440); UNCORRECTED WBC 15.1 10^3/ul (4.8-10.8); WHITE BLOOD COUNT 15.1 10^3/ul (4.8-10.8)
[2016-05-04 08:30] LABS: CONDITION 1; LH ANALYZER COMMENTS 1
[2016-05-04] MEDS: FAMOTIDINE 20 MG INJ IV SCH (09:22)
[2016-05-04] MEDS: ATENOLOL 50 MG TAB PO SCH (09:26)
[2016-05-04] MEDS: ONDANSETRON 4 MG INJ IV PRN ×2 (09:58→20:21)
[2016-05-04] MEDS: OCTREOTIDE 50 MCG INJ SC SCH ×4 (09:58→21:00)
--- NOTE | 2016-05-04 10:19 | PN ---
DATE: 05/04/2016 SUBJECTIVE: The patient is stable, no acute events overnight. No fevers, chills, nausea or vomitin g. OBJECTIVE: VITAL SIGNS: Blood pressure is 170/85, respirations 18, pulse 68, temperature 97.8. I's AND O'S: The patient had 2 L in with 2 liters out. HEENT: Head is normocephalic. NECK: Supple. HEART: Regular rate. LUNGS: Show diminished breath sounds at base. ABDOMEN: The patient has a dressing over the laparotomy incision scar. Positive KORIN drains noted. Mild tenderness to palpation. EXTREMITIES: Negative for clubbing, cyanosis, no edema. DERMATOLOGIC: No rashes. MUSCULOSKELETAL: No joint effusions. NEUROLOGIC: No focal deficits LABORATORY DATA: Shows sodium 144, potassium 3.9, chloride 105, BUN 37, creatinine 2.29. White cou nt 15.1, hemoglobin 10.5, hematocrit 31.3, platelet count is 284. Urinalysis shows nonactive sedime nt, FENa greater than 1%. Renal ultrasound shows bilateral kidneys are unremarkable. ASSESSMENT AND PLAN: 1. Nonoliguric acute kidney injury with previous baseline creatinine of 0.9 mg/dL. Etiology of acu te kidney injury is likely secondary to acute tubular necrosis due to multifactorial etiologies incl uding vancomycin associated nephrotoxicity, hemodynamic fluctuations, hypertensive urgency. The pat ient's repeat urinalysis shows no evidence of active sediment. Renal ultrasound shows no obstructio n and normal renal parenchyma. At this point, I would continue current treatment plan. The patient appears to still be in injury phase of acute tubular necrosis. Would continue to hold vancomycin. Would continue supportive care, renally dose all meds, and avoid nephrotoxins. 2. Anemia of chronic disease. Hemoglobin level stable. Continue to monitor. 3. Mineral bone disorder. We will continue to monitor calcium and phosphorus levels. 4. Hypertensive urgency. Etiology is multifactorial. Blood pressure is improving slowly. Would co ntinue current blood pressure regimen. Consider adding calcium channel jose daniel. 5. Metastatic ovarian carcinoma. The patient is status post debulking surgery. Continue to monito r. Follow up with TARIFF INSPECTOR/ONC 6. Deep venous thrombosis. Continue current medical management. 7. Systemic inflammatory response syndrome. The patient is on empiric antibiotic therapy. Cultures have been negative. Continue to observe. Dictated By: JAHAIRA CAMPOS DO NR/NTS Conf#: [id number] DID#: [id number]
--- NOTE | 2016-05-04 10:52 | PN ---
Date/Time of Note Date/Time of Note DATE: 05/04/16 TIME: 10:42 Assessment/Plan VTE Prophylaxis VTE Prophylaxis Intervention: SCD's Lines/Catheters IV Catheter Type (from Nrsg): Saline Lock Urinary Cath still in place: Yes Reason Cath still needed: other (indicate) (pelvic surgery) Assessment/Plan Assessment/Plan 55 yo F with abd pain 2/2 diffuse metastatic disease managed for : 1. Metastatic ovarian cancer. CT scan showing multiple soft tissue masses within the abdomen and pelvis, consistent with metastatic disease. The CT scan also revealed moderate midline upper wall ventral hernia containing multiple loops of small bowel with no evidence of small bowel obstruction. S/P debulking surgery, hernia repair + bowel resection 04/29/16 / continue routine postop care / modify pain regime / appreciate Market Risk Manager Onc rec's / monitor drains, UO / PT when pain is better controlled / continue Sandostatin per Market Risk Manager onc to reduce pancreatic secretions 2. History of left lower extremity deep venous thrombosis - apparently pt had been on Coumadin. INR subtherapeutic. The patient's DVT was diagnosed approximately 8 months ago. However bilateral lower extremity venous Doppler study performed this admission (04/27/16) = neg for DVT. - holding Coumadin at this time - patient may need IVC filter 3. Normocytic normochromic anemia - again, s/p pRBC transfusion on this admission - Will monitor the H and H closely 4. Transaminitis without hyperbilirubinemia. Etiology unclear. from recent surgery versus mets -Will monitor the LFTs closely / trending down at this time - Will avoid any hepatotoxic medications. 5. Essential hypertension - Blood pressure control slightly better on scheduled and PRN hydralazine / patient on sandostatin, may be contributory - Continue antihypertensives. 6. Fluid, electrolytes, and nutrition. -Started on TPN / still NPO / possible removal of NGT today 7. SIRS: improving Patient on Zosyn alone, Vanco d/c 2/2 worsening renal fxn/ trend levels /ID consult appreciated / repeat cultures all negative so far / encourage ambulation / Incentive Spirometer use 8. New L sided effusion on CXR r/o infiltrate: patient encouraged to ambulate and use Incentive spirometer 9. Acute kidney injury likely secondary to acute tubular necrosis due to multifactorial etiologies including vancomycin associated nephrotoxicity, hemodynamic fluctuations, hypertensive urgency Nephrology managing. Thinks patient is still in injury phase Avoid nephrotoxins, renally dose meds, monitor creatinine Deep venous thrombosis prophylaxis - SCD's Gastrointestinal prophylaxis. Histamine 2 receptor blockers. Subjective 24 Hr Interval Summary Free Text/Dictation patient reports feeling better we discussed need for ambulation NGT to be d/c today if patient tolerates clamping / patient has been started on TPN Exam/Review of Systems Vital Signs Vitals Vital Signs Date Time Temp Pulse Resp B/P Pulse Ox O2 Delivery O2 Flow Rate FiO2 05/04/16 08:11 97.8 68 18 170/85 93 05/04/16 06:30 Room Air 05/04/16 04:00 2.0 Intake and Output 05/03/16 05/03/16 05/04/16 15:00 23:00 07:00 Intake Total 100 ml 1220 ml 690 ml Output Total 1235 ml 884 ml Balance 100 ml -15 ml -194 ml Exam Constitutional: alert, obese, oriented, No distress Psych: other (blank/ tired affect) Head: normocephalic Eyes: icteric (mildly) Neck: non-tender Respiratory: diminished breath sounds, other (port R chest), No labored breathing Cardiovascular: regular rate and rhythm, No murmurs/extra sounds Gastrointestinal: bowel sounds (hypoactive / NGT clamped), distended, other ( drains X2), soft Genitourinary - Female: other (ang still in place) Extremities: No edema Neurological: lethargic, nl mental status Results Result Diagram: 05/04/16 0505 05/04/16 0505 Results 24 hrs Laboratory Tests Test 05/03/16 13:40 05/03/16 21:11 05/04/16 02:28 05/04/16 05:05 Urine Bilirubin NEGATIVE Urine Clarity CLEAR Urine Color LT. YELLOW Urine Epithelial Cells RARE Urine Glucose NEGATIVE Urine Hemoglobin TRACE Urine Ketones NEGATIVE Urine Leukocyte Esterase NEGATIVE Urine Microscopic RBC 2-5 Urine Microscopic WBC NONE SEEN Urine Nitrite NEGATIVE Urine Random Creatinine 43.29 Urine Random Sodium 96 H Urine Specific [place] 1.015 Urine Total Protein Urine Urobilinogen 0.2 E.U./dL Urine pH 5.5 Bedside Glucose 111 144 Alanine Aminotransferase (ALT/SGPT) 52 Albumin 2.7 L Albumin/Globulin Ratio 0.77 Alkaline Phosphatase 181 H Anion Gap 16 Aspartate Amino Transf (AST/SGOT) 27 Basophils # 0.0 Basophils % 0.0 Blood Morphology Comment Blood Urea Nitrogen 37 H Calcium Level 8.3 L Carbon Dioxide Level 27 Chloride Level 105 Creatinine 2.29 H Direct Bilirubin 0.00 Eosinophils # 0.2 Eosinophils % 1.1 Globulin 3.50 H Glucose Level 134 # Hematocrit 31.3 L Hemoglobin 10.5 L Indirect Bilirubin 0.4 Lymphocytes # 0.9 Lymphocytes % 6.2 L Magnesium Level 1.7 Mean Corpuscular Hemoglobin 31.0 Mean Corpuscular Hemoglobin Concent 33.7 Mean Corpuscular Volume 92.0 Mean Platelet Volume 8.6 Monocytes # 1.4 H Monocytes % 9.6 Neutrophils # 12.5 H Neutrophils % 83.1 H Nucleated Red Blood Cells # 0.0 Nucleated Red Blood Cells % 0.0 Phosphorus Level 4.2 Platelet Count 284 # Potassium Level 3.8 Prealbumin 6.8 L Red Blood Count 3.40 L Red Cell Distribution Width 15.0 H Sodium Level 144 Total Bilirubin 0.4 Total Protein 6.3 Triglycerides Level 153 H White Blood Count 15.1 H Test 05/04/16 09:06 Bedside Glucose 129 Medications Medications Current Medications Hydralazine HCl (Apresoline) 10 mg Q6H PRN IV SBP>160 Last administered on 05/03 21:13; Admin Dose 10 MG; Start 04/26/16 at 11:00 Ondansetron HCl (Zofran Inj) 4 mg Q6H PRN IV NAUSEA AND/OR VOMITING Last administered on 05/04/16 09:58; Admin Dose 4 MG; Start 04/28/16 at 21:00 Atenolol 50 mg 50 mg DAILY PO Last administered on 05/04/16 09:26; Admin Dose 50 MG; Start 05/01/16 at 10:30 Piperacillin Sod/ Tazobactam Sod (Zosyn 3.375gm/ 100 ml (Pmx)) 100 ml @ 200 mls /hr Q8 IVPB Last administered on 05/04/16 06:35; Admin Dose 200 MLS/HR; Start 05/01/16 at 12:00 Clonidine (Catapres) 0.1 mg Q6H PRN PO SBP >160 Last administered on 05/01/16 11:06; Admin Dose 0.1 MG; Start 05/01/16 at 10:30 Morphine Sulfate (morphine) 2 mg Q4H PRN IV breakthrough pain Last administered on 05/03/16 22:19; Admin Dose 2 MG; Start 05/01/16 at 12:30 Acetaminophen/ Codeine Phosphate (Tylenol No.3) 1 tab Q6H PRN PO PAIN Last administered on 05/02/16 21:41; Admin Dose 1 TAB; Start 05/01/16 at 12:30 Octreotide Acetate 50 mcg 50 mcg TID SC Last administered on 05/04/16 09:58; Admin Dose 50 MCG; Start 05/02/16 at 13:00 Vancomycin HCl/ Sodium Chloride (Vancocin/NS) 250 ml @ 83.333 mls/ hr Q24H IVPB Last administered on 05/03/16 03:47; Admin Dose 83.333 MLS/HR; Start 03/09 at 03:00; Status Future Hold Famotidine (Pepcid Iv) 20 mg DAILY IV Last administered on 05/04/16 09:22; Admin Dose 20 MG; Start 05/03/16 at 09:00 Hydralazine HCl 10 mg 10 mg Q6 IV Last administered on 05/04/16 06:33; Admin Dose 10 MG; Start 05/03/16 at 12:00 Total Parenteral Nutrition (Tpn) 1,000 ml @ 90 mls/hr Q11H7M IV Last administered on 05/03/16 21:10; Admin Dose 90 MLS/HR; Start 05/03/16 at 20:00 Diagnostic Test (Pha) (Accucheck) 1 ea Q6H XX Last administered on 05/04/16 02 :31; Admin Dose 1 EA; Start 05/03/16 at 20:00; Stop 05/04/16 at 14:01 Diagnostic Test (Pha) (Accucheck) 1 ea Q12 XX ; Start 05/04/16 at 21:00 Procedures Procedures ROCEDURE: XR Chest. CLINICAL INDICATION: leukocytosis TECHNIQUE: Single frontal view of the chest was obtained. COMPARISON: Chest x-ray from 04/25/2016 FINDINGS: There has been interval placement of enteric tube which projects past the diaphragm and is likely in the stomach. The right chest wall Port-A-Cath is again noted. The heart and mediastinum are within normal limits. There is a small left pleural effusion as well as obscuration of the left hemidiaphragm due to atelectasis, infiltrate, and / or effusion. IMPRESSION: New small left pleural effusion and obscuration of the left hemidiaphragm due to atelectasis, infiltrate, and / or effusion. Interval placement of an enteric tube in the stomach. Right chest wall Port-A-Cath is again noted. RPTAT: EE Binu Goins Physician Date Time Electronically viewed and signed by Binu Goins Physician on 05/03/2016 17:12 ABDIRIZAK VARGAS May 04, 2016 10:51
[2016-05-04] MEDS: CLONIDINE 0.1 MG/24 HR PATCH TRANSDERM SCH (13:38)
[2016-05-04] MEDS: hydrALAzine 20 MG INJ IV PRN (14:21)
[2016-05-04] MEDS: morphine 2 MG INJ IV PRN ×2 (15:10→23:16)
--- NOTE | 2016-05-04 21:07 | PN ---
DATE: SUBJECTIVE: No acute events overnight. The patient is sleeping. She was up in a chair today. No nausea, vomiting, diarrhea. She is n.p.o. still. No fevers. LABORATORY DATA: WBC today 15.1 with H and H 10.5 and 31.8, platelets 284, neutrophils 83.1. BUN 3 7, creatinine 2.29. MICROBIOLOGY: Blood and urine cultures remain negative since admission. DIAGNOSTICS: Chest x-ray from yesterday revealed new small left pleural effusion. INDWELLINGS: The patient has a right chest Port-A-Cath and NG tube. She also has Elizalde and JPs. ANTIMICROBIALS: 1. Zosyn. 2. Vancomycin. PHYSICAL EXAMINATION: GENERAL: This is a morbidly obese, middle-aged woman who is lying comfortably in bed. HEENT: Head atraumatic, normocephalic. Sclerae anicteric. Buccal mucosa dry. NECK: Obese. CHEST: Rise symmetrical. Breath sounds diminished to bases. HEART: S1, S2. ABDOMEN: Obese, soft. Bowel tones hypoactive. The patient has multiple JPs. EXTREMITIES: Without cyanosis. ASSESSMENT: 1. Persistent leukocytosis, status post low-grade fevers, rule out pulmonary source. 2. Acute renal failure. 3. Metastatic ovarian carcinoma status post tumor debulking with hernia repair and bowel resection on 04/29/2016. 4. Obesity. 5. Hypertension. PLAN: The patient remains stable, covered with appropriate antibiotics. Cultures have been negativ e so far. She is on TPN and Sandostatin. She is being followed by multiple consultants. We will c ontinue her on current regimen. Dictated By: EREN DANIELS BALE STACKER for CARI NICE/COLTON Conf#: [id number] DID#: [id number]
[2016-05-05] VITALS (7 sets, daily range): BP systolic 131–172; BP diastolic 76–85; PULSE 59–61; RESP 18–19
[2016-05-05] MEDS: ACETAMINOPHEN/CODEINE #3 TAB PO PRN ×3 (02:03→16:08)
[2016-05-05] MEDS: PIPER-TAZO 3.375 GM IV (PMX) 100 ML IVPB SCH ×3 (06:05→21:11)
[2016-05-05] MEDS: hydrALAzine 20 MG INJ IV SCH ×4 (06:08→18:54)
[2016-05-05] MEDS: TPN 1,000 ML IV SCH ×2 (06:08→21:59)
[2016-05-05 07:08] LABS: POTASSIUM 3.5 mmol/L (3.5-5.1)
[2016-05-05 07:11] LABS: CREATININE 2.1 mg/dl (0.44-1.00)
[2016-05-05 07:12] LABS: CALCIUM 8.3 mg/dl (8.4-10.2); MAGNESIUM 1.8 mg/dl (1.7-2.5); PHOSPHORUS 3.3 mg/dl (2.5-4.9)
[2016-05-05] MEDS: OCTREOTIDE 50 MCG INJ SC SCH ×3 (09:00→20:49)
[2016-05-05] MEDS: FAMOTIDINE 20 MG INJ IV SCH ×2 (09:32→20:44)
[2016-05-05] MEDS: ATENOLOL 50 MG TAB PO SCH (09:35)
[2016-05-05] MEDS: ACCUCHECK XX SCH ×2 (09:36→20:49)
--- NOTE | 2016-05-05 10:29 | PN ---
DATE: 05/05/2016 SUBJECTIVE: The patient is stable. No acute events overnight. No fevers, chills, nausea, vomiting . No shortness of breath. OBJECTIVE: VITAL SIGNS: Blood pressure is 172/79, respirations 19, pulse 62, temperature 97.1. HEENT: Head is normocephalic. NECK: Supple. HEART: Regular rate. LUNGS: Show diminished breath sounds at the base. ABDOMEN: Soft, nontender to palpation. No rebound or guarding. EXTREMITIES: Negative for clubbing or cyanosis. No edema. DERMATOLOGIC: No rashes. MUSCULOSKELETAL: Have no joint effusion. NEUROLOGIC: No change in exam. MEDICATIONS: The patient's medications have been reviewed. LABORATORY DATA: Shows a sodium of 143, potassium 3.5, chloride 107, BUN 43, creatinine 2.10. Whit e count 15.1, hemoglobin 10.5, hematocrit 31.3, platelet count is 284. ASSESSMENT AND PLAN: 1. Nonoliguric acute kidney injury, with a previous baseline creatinine of 0.9 mg/dL. Etiology of acute kidney injury is secondary to acute tubular necrosis due to multifactorial etiologies, includi ng vancomycin associated nephrotoxicity and hemodynamic fluctuations. The patient's renal function is slowly improving. At this point, will continue the current treatment plan, supportive care, shayan lly dose all meds, and continue to hold vancomycin. 2. Anemia of chronic disease. Continue to monitor hemoglobin and hematocrit levels. 3. Mineral bone disorder. Continue to monitor calcium and phosphorus levels. 4. Hypertensive urgency. Continue the current blood pressure regimen. Adjust medications as neede d. 5. Metastatic ovarian CA, status post debulking surgery. Continue to monitor. Follow up with FORTUNE TELLER/ ONC. 6. Deep vein thrombosis. Continue medical management. 7. Systemic inflammatory response syndrome. The patient remains on Zosyn. Will continue. Repeat c ultures have been negative. Dictated By: JAHAIRA CAMPOS DO NR/NTS Conf#: [id number] DID#: [id number]
--- NOTE | 2016-05-05 13:51 | PN ---
Date/Time of Note Date/Time of Note DATE: 05/05/16 TIME: 13:47 Assessment/Plan VTE Prophylaxis VTE Prophylaxis Intervention: SCD's Lines/Catheters IV Catheter Type (from Nrsg): port Urinary Cath still in place: Yes Reason Cath still needed: other (indicate) Assessment/Plan Assessment/Plan 55 yo F with abd pain 2/2 diffuse metastatic disease managed for : 1. Metastatic ovarian cancer. CT scan showing multiple soft tissue masses within the abdomen and pelvis, consistent with metastatic disease. The CT scan also revealed moderate midline upper wall ventral hernia containing multiple loops of small bowel with no evidence of small bowel obstruction. S/P debulking surgery, hernia repair + bowel resection 04/29/16 / continue routine postop care / modify pain regime / appreciate [facility] Onc rec's / monitor drains, UO / continue Sandostatin per [facility] onc to reduce pancreatic secretions 2. History of left lower extremity deep venous thrombosis - apparently pt had been on Coumadin. INR subtherapeutic. The patient's DVT was diagnosed approximately 8 months ago. However bilateral lower extremity venous Doppler study performed this admission (04/27/16) = neg for DVT. - holding Coumadin at this time re: recent surgery - patient may need IVC filter 3. Normocytic normochromic anemia - again, s/p pRBC transfusion on this admission - Will monitor the H and H closely 4. Transaminitis without hyperbilirubinemia. Etiology unclear. from recent surgery versus mets -Will monitor the LFTs closely / trending down at this time - Will avoid any hepatotoxic medications. 5. Essential hypertension - Blood pressure control slightly better on scheduled and PRN hydralazine / patient on sandostatin, may be contributory - Continue antihypertensives. 6. Fluid, electrolytes, and nutrition. -Started on TPN / still NPO / possible ?CLD today 7. SIRS: improving Patient on Zosyn alone, Vanco d/c 2/2 worsening renal fxn/ trend levels /ID consult appreciated / repeat cultures all negative so far / encourage ambulation / Incentive Spirometer use 8. New L sided effusion on CXR r/o infiltrate: patient encouraged to ambulate and use Incentive spirometer 9. Acute kidney injury likely secondary to acute tubular necrosis due to multifactorial etiologies including vancomycin associated nephrotoxicity, hemodynamic fluctuations, hypertensive urgency Nephrology managing. Thinks patient is still in injury phase Avoid nephrotoxins, renally dose meds, monitor creatinine Deep venous thrombosis prophylaxis - SCD's Gastrointestinal prophylaxis. Histamine 2 receptor blockers. Subjective 24 Hr Interval Summary Free Text/Dictation Patient seen and examined. looks and feels much better NGT has been removed, patient is hoping for a liquid diet Passing lots of gas but no BM Exam/Review of Systems Vital Signs Vitals Vital Signs Date Time Temp Pulse Resp B/P Pulse Ox O2 Delivery O2 Flow Rate FiO2 05/05/16 13:41 61 18 140/80 Room Air 05/05/16 08:22 97.1 98 05/04/16 18:37 2.0 Intake and Output 05/04/16 05/04/16 05/05/16 14:59 22:59 06:59 Intake Total 100 ml 1470 ml Output Total 30 ml 575 ml 918 ml Balance 70 ml -575 ml 552 ml Exam Constitutional: alert, obese, oriented, No distress Psych: nl mood/affect Head: atraumatic, normocephalic Eyes: PERRL, icteric (?mild) Neck: non-tender Respiratory: clear to auscultation, diminished breath sounds Cardiovascular: regular rate and rhythm, No murmurs/extra sounds Gastrointestinal: bowel sounds, distended, soft, surgical scars Extremities: No edema Neurological: lethargic, nl mental status, nl speech Results Result Diagram: 05/04/16 0505 05/05/16 0415 Results 24 hrs Laboratory Tests Test 05/04/16 13:49 05/04/16 21:20 05/05/16 04:15 05/05/16 09:32 Bedside Glucose 142 128 94 Anion Gap 15 Blood Urea Nitrogen 43 H Calcium Level 8.3 L Carbon Dioxide Level 25 Chloride Level 107 Creatinine 2.10 H Glucose Level 116 Magnesium Level 1.8 Phosphorus Level 3.3 Potassium Level 3.5 Sodium Level 143 Triglycerides Level 127 Medications Medications Current Medications Hydralazine HCl (Apresoline) 10 mg Q6H PRN IV SBP>160 Last administered on 05/04 14:21; Admin Dose 10 MG; Start 04/26/16 at 11:00 Ondansetron HCl (Zofran Inj) 4 mg Q6H PRN IV NAUSEA AND/OR VOMITING Last administered on 05/04/16 20:21; Admin Dose 4 MG; Start 04/28/16 at 21:00 Atenolol 50 mg 50 mg DAILY PO Last administered on 05/05/16 09:35; Admin Dose 50 MG; Start 05/01/16 at 10:30 Piperacillin Sod/ Tazobactam Sod (Zosyn 3.375gm/ 100 ml (Pmx)) 100 ml @ 200 mls /hr Q8 IVPB Last administered on 05/05/16 13:34; Admin Dose 200 MLS/HR; Start 05/01/16 at 12:00 Clonidine (Catapres) 0.1 mg Q6H PRN PO SBP >160 Last administered on 05/04/16 20:22; Admin Dose 0.1 MG; Start 05/01/16 at 10:30 Morphine Sulfate (morphine) 2 mg Q4H PRN IV breakthrough pain Last administered on 05/04/16 23:16; Admin Dose 2 MG; Start 05/01/16 at 12:30 Acetaminophen/ Codeine Phosphate (Tylenol No.3) 1 tab Q6H PRN PO PAIN Last administered on 05/05/16 10:05; Admin Dose 1 TAB; Start 05/01/16 at 12:30 Octreotide Acetate (Sandostatin) 50 mcg TID SC Last administered on 05/05/16 13:34; Admin Dose 50 MCG; Start 05/02/16 at 13:00 Famotidine (Pepcid Iv) 20 mg DAILY IV Last administered on 05/05/16 09:32; Admin Dose 20 MG; Start 05/03/16 at 09:00 Hydralazine HCl 10 mg 10 mg Q6 IV Last administered on 05/05/16 12:40; Admin Dose 10 MG; Start 05/03/16 at 12:00 Total Parenteral Nutrition (Tpn) 1,000 ml @ 90 mls/hr Q11H7M IV Last administered on 05/05/16 06:08; Admin Dose 90 MLS/HR; Start 05/03/16 at 20:00 Diagnostic Test (Pha) (Accucheck) 1 ea Q12 XX Last administered on 05/05/16 09 :36; Admin Dose 1 EA; Start 05/04/16 at 21:00 Clonidine HCl (Catapres-Tts 1 Patch) 1 patch Q7D TRANSDERM Last administered on 05/04/16 13:38; Admin Dose 1 PATCH; Start 05/04/16 at 12:00 ABDIRIZAK VARGAS May 05, 2016 13:50
[2016-05-05] MEDS: PANTOPRAZOLE (EC) 40 MG TAB PO SCH (16:08)
[2016-05-05] MEDS: morphine 2 MG INJ IV PRN (20:58)
[2016-05-05] MEDS: ONDANSETRON 4 MG INJ IV PRN (20:58)
[2016-05-05] MEDS ORDERED: OCTREOTIDE 100 MCG INJ SC SCH (21:00)
--- NOTE | 2016-05-05 21:32 | PN ---
Date/Time of Note Date/Time of Note DATE: 05/05/16 TIME: 21:30 Assessment/Plan VTE Prophylaxis VTE Prophylaxis Intervention: LMWH Lines/Catheters IV Catheter Type (from Nrsg): port Urinary Cath still in place: Yes Assessment/Plan Chief Complaint/Hosp Course Ovarian cancer with hernia and possible SBO and recurrence. Problems: Assessment/Plan A- doing adequately P- continue TPN and sanostatin and will start clear liq tomorrow; will then wean sandostatin and adv diet Subjective 24 Hr Interval Summary Free Text/Dictation S- better pain adequate and + flatus and was OOB . O Resp- clear CVS- NSR Abd- soft, appropriate tenderness, clean with KORIN output Ext- NT no edema A- doing adequately P- continue TPN and sanostatin and will start clear liq tomorrow; will then wean sandostatin and adv diet Exam/Review of Systems Vital Signs Vitals Vital Signs Date Time Temp Pulse Resp B/P Pulse Ox O2 Delivery O2 Flow Rate FiO2 05/05/16 18:00 97.0 91 19 131/78 98 05/05/16 13:41 Room Air 05/04/16 18:37 2.0 Intake and Output 05/04/16 05/04/16 05/05/16 15:00 23:00 07:00 Intake Total 100 ml 1470 ml Output Total 30 ml 575 ml 918 ml Balance 70 ml -575 ml 552 ml Results Result Diagram: 05/04/16 0505 05/05/16 0415 Results 24 hrs Laboratory Tests Test 05/05/16 04:15 05/05/16 09:32 05/05/16 21:06 Anion Gap 15 Blood Urea Nitrogen 43 H Calcium Level 8.3 L Carbon Dioxide Level 25 Chloride Level 107 Creatinine 2.10 H Glucose Level 116 Magnesium Level 1.8 Phosphorus Level 3.3 Potassium Level 3.5 Sodium Level 143 Triglycerides Level 127 Bedside Glucose 94 106 Medications Medications Current Medications Hydralazine HCl (Apresoline) 10 mg Q6H PRN IV SBP>160 Last administered on 05/04 14:21; Admin Dose 10 MG; Start 04/26/16 at 11:00 Ondansetron HCl (Zofran Inj) 4 mg Q6H PRN IV NAUSEA AND/OR VOMITING Last administered on 05/05/16 20:58; Admin Dose 4 MG; Start 04/28/16 at 21:00 Atenolol 50 mg 50 mg DAILY PO Last administered on 05/05/16 09:35; Admin Dose 50 MG; Start 05/01/16 at 10:30 Piperacillin Sod/ Tazobactam Sod (Zosyn 3.375gm/ 100 ml (Pmx)) 100 ml @ 200 mls /hr Q8 IVPB Last administered on 05/05/16 21:11; Admin Dose 200 MLS/HR; Start 05/01/16 at 12:00 Clonidine (Catapres) 0.1 mg Q6H PRN PO SBP >160 Last administered on 05/04/16 20:22; Admin Dose 0.1 MG; Start 05/01/16 at 10:30 Morphine Sulfate (morphine) 2 mg Q4H PRN IV breakthrough pain Last administered on 05/05/16 20:58; Admin Dose 2 MG; Start 05/01/16 at 12:30 Acetaminophen/ Codeine Phosphate (Tylenol No.3) 1 tab Q6H PRN PO PAIN Last administered on 05/05/16 16:08; Admin Dose 1 TAB; Start 05/01/16 at 12:30 Hydralazine HCl 10 mg 10 mg Q6 IV Last administered on 05/05/16 18:54; Admin Dose 10 MG; Start 05/03/16 at 12:00 Total Parenteral Nutrition (Tpn) 1,000 ml @ 90 mls/hr Q11H7M IV Last administered on 05/05/16 06:08; Admin Dose 90 MLS/HR; Start 05/03/16 at 20:00 Diagnostic Test (Pha) (Accucheck) 1 ea Q12 XX Last administered on 05/05/16 20 :49; Admin Dose 1 EA; Start 05/04/16 at 21:00 Clonidine HCl (Catapres-Tts 1 Patch) 1 patch Q7D TRANSDERM Last administered on 05/04/16 13:38; Admin Dose 1 PATCH; Start 05/04/16 at 12:00 Octreotide Acetate (Sandostatin) 100 mcg TID SC Last administered on 05/05/16 20:49; Admin Dose 100 MCG; Start 05/05/16 at 21:00 Famotidine (Pepcid Iv) 20 mg BID IV Last administered on 05/05/16 20:44; Admin Dose 20 MG; Start 05/05/16 at 21:00 Pantoprazole (Protonix Tab) 40 mg DAILY@06 PO Last administered on 05/05/16 16 :08; Admin Dose 40 MG; Start 05/05/16 at 16:00 LEELA VILLANUEVA MD May 05, 2016 21:32
[2016-05-06 00:19] VITALS: BP 160/82
[2016-05-06] MEDS: hydrALAzine 20 MG INJ IV SCH ×2 (00:50→06:14)
--- NOTE | 2016-05-06 06:11 | PN ---
DATE: 05/05/2016 SUBJECTIVE: No acute changes. The patient is alert, feels good. Family at bedside. She denies pa in, discomfort. No fevers. No labs this morning. MICROBIOLOGY: All cultures have been negative. ANTIMICROBIALS: The patient remains on Zosyn day #5, status post vancomycin. INDWELLINGS: The patient has right chest Port-A-Cath, JPs, Elizalde. PHYSICAL EXAMINATION: GENERAL: This is a morbidly obese, well-developed, middle-aged woman who is alert, in no distress. HEENT: Head atraumatic, normocephalic. Sclerae anicteric. Buccal mucosa pink. NECK: Supple, trachea midline. CHEST: Rise symmetrical. Breath sounds clear. HEART: S1, S2. ABDOMEN: Soft. Bowel tones present. EXTREMITIES: Without cyanosis. ASSESSMENT: 1. Systemic inflammatory response syndrome with leukocytosis, status post low grade fevers, improvi ng. 2. Acute renal failure. 3. Obesity. 4. Hypertension. 5. Metastatic ovarian carcinoma status post tumor debulking with hematoma repair bowel resection on 04/29/2016. PLAN: The patient remains stable. White blood cell count tracing down. No fevers. She is clinica lly improving. Cultures have been negative. Continue on Zosyn for a couple more days. Continue TP N. Follow recommendation of specialists. Dictated By: EREN DANIELS VERIFIER OPERATOR for CARI NICE/COLTON Conf#: [id number] DID#: [id number]
[2016-05-06] MEDS: PANTOPRAZOLE (EC) 40 MG TAB PO SCH (06:13)
[2016-05-06] MEDS: PIPER-TAZO 3.375 GM IV (PMX) 100 ML IVPB SCH ×3 (06:13→23:04)
[2016-05-06] MEDS: ACETAMINOPHEN/CODEINE #3 TAB PO PRN (06:27)
[2016-05-06 06:58] LABS: EOSINOPHILS # 0.5 10^3/ul (0.0-0.5); EOSINOPHILS % 3.4 % (0.0-7.0); HEMATOCRIT 28.7 % (37.0-47.0); HEMOGLOBIN 9.6 g/dl (12.0-16.0); LYMPHOCYTES # 1.5 10^3/ul (0.8-2.9); LYMPHOCYTES % 10.8 % (15.0-51.0); MEAN CORPUSCULAR HEMOGLOBIN 30.6 pg (29.0-33.0); MEAN CORPUSCULAR HGB CONC 33.4 g/dl (32.0-37.0); MEAN CORPUSCULAR VOLUME 91.6 fl (82.0-101.0); MEAN PLATELET VOLUME 9.1 fl (7.4-10.4); MONOCYTES % 7.6 % (0.0-11.0); NEUTROPHIL # 10.8 10^3/ul (1.6-7.5); NEUTROPHILS % 78.2 % (39.0-77.0); PLATELET COUNT 311 10^3/UL (140-440); RED BLOOD COUNT 3.14 10^6/ul (4.20-5.40); RED CELL DISTRIBUTION WIDTH 15.3 % (11.5-14.5); UNCORRECTED WBC 13.8 10^3/ul (4.8-10.8); WHITE BLOOD COUNT 13.8 10^3/ul (4.8-10.8)
[2016-05-06 07:00] LABS: POTASSIUM 3.3 mmol/L (3.5-5.1)
[2016-05-06 07:02] LABS: CREATININE 1.91 mg/dl (0.44-1.00)
[2016-05-06 07:03] LABS: PHOSPHORUS 3.9 mg/dl (2.5-4.9)
[2016-05-06 07:04] LABS: CALCIUM 8.4 mg/dl (8.4-10.2); MAGNESIUM 1.7 mg/dl (1.7-2.5)
[2016-05-06 07:32] LABS: CONDITION 1; LH ANALYZER COMMENTS 1
[2016-05-06 07:42] VITALS: BP 175/80; RESP 17
[2016-05-06] MEDS: ATENOLOL 50 MG TAB PO SCH (08:27)
[2016-05-06] MEDS: OCTREOTIDE 50 MCG INJ SC SCH ×3 (08:30→22:48)
[2016-05-06] MEDS: FAMOTIDINE 20 MG INJ IV SCH ×2 (08:31→21:05)
--- NOTE | 2016-05-06 08:38 | PN ---
DATE: 05/06/2016 SUBJECTIVE: The patient is stable. No acute events overnight. No fevers, chills, nausea or vomiti ng. OBJECTIVE: VITAL SIGNS: Blood pressure is 116/82, respirations 18, pulse 60, temperature 98.1. HEENT: Head is normocephalic. NECK: Supple. HEART: Regular rate. LUNGS: Showed diminished breath sounds at the base. ABDOMEN: Soft, nontender to palpation. No rebound or guarding. The patient does have a dressing ov er her laparotomy scar that is clean, dry and intact. Positive KORIN drains are noted. EXTREMITIES: Negative for clubbing or cyanosis. No edema. DERMATOLOGIC: No rashes. MUSCULOSKELETAL: Have no joint effusion. NEUROLOGIC: No change in exam. LABORATORY DATA: Showed a white count of 15.1, hemoglobin 10.5, platelet count 284. Sodium 142, po tassium 3.3, BUN 42, creatinine 1.91. ASSESSMENT AND PLAN: 1. Nonoliguric acute kidney injury, with a previous baseline creatinine of 0.9 mg/dL. Etiology may be secondary to vancomycin associated nephrotoxicity with hemodynamic fluctuations. Renal function appears to slowly be improving. Vancomycin was held. At this point will continue the current dominic tment plan, supportive care, renally dose meds, and avoid nephrotoxins. 2. Hypokalemia. Replete with potassium chloride 20 mEq. 3. Anemia. Continue to monitor hemoglobin and hematocrit levels. 4. Mineral bone disorder. Continue to monitor calcium and phosphorus levels. 5. Hypertensive urgency. Continue the current blood pressure regimen. 6. Metastatic ovarian cancer, status post debulking surgery. Continue to monitor. Follow up with gynecology/oncology. 7. Deep venous thrombosis. Continue medical management. 8. Systemic inflammatory response syndrome. The patient is on Zosyn. Will continue to monitor. Dictated By: JAHAIRA FELICIANO/COLTON Conf#: [id number] DID#: [id number]
[2016-05-06] MEDS ORDERED: POTASSIUM CHLORIDE 20 MEQ in SOD CHLORIDE 0.9% 100 ML IVPB ONE (09:00)
[2016-05-06 09:20] VITALS: BP 148/70; PULSE 54; RESP 18
[2016-05-06] MEDS: ACCUCHECK XX SCH ×2 (09:53→21:00)
--- NOTE | 2016-05-06 10:46 | CONS ---
Date/Time of Note Date/Time of Note DATE: 05/06/16 TIME: 10:46 Assessment/Plan Assessment/Plan Chief Complaint/Hosp Course ID PROGRESS NOTE TOTAL ABX DAY # 9 => Zosyn #6 s/p Vanco s/p Ancef 24H INTERVAL SUMMARY * Awake, alert, ambulatory in room, (+)BM today "My 1st one", (+)Mild ABD pain, denies dysuria * No fevers, WBC down trend, TPN via right chest port, supplemental o2 Via NC * (+)FC in place -- Does she need this ? * J-P drain removed * 05/03/16 CXR: IMPRESSION: New small left pleural effusion and obscuration of the left hemidiaphragm due to atelectasis, infiltrate, and / or effusion. Interval placement of an enteric tube in the stomach. Right chest wall Port-A- Cath is again noted. PHYSICAL EXAMINATION: GENERAL: 55 yo F HEENT: Unremarkable NECK: Supple, trachea midline. CHEST: Rise symmetrical without dyspnea on supplemental O2 via NC, off O2 to BRP without dyspnea HEART: RRR ABDOMEN: Soft, DSG C/D/I EXTREMITIES: Warm ID ASSESSMENT: 55 yo obese F with: 1. Metastatic ovarian carcinoma status post tumor debulking with hematoma repair bowel resection on 04/29/2016. * J-P drain removed, (+)BM today * Remains on TPN 2. Systemic inflammatory response syndrome with leukocytosis, status post low grade fevers = RESOLVING 3. Acute renal failure. 4. HTN 5. Small left pleural effusion and obscuration of the left hemidiaphragm due to atelectasis, infiltrate, and / or effusion seen on CXR 05/03/15. 6. History of left lower extremity deep venous thrombosis-> (-)DVT on US this admission INVASIVES: *Port-A-Cath, FC CURRENT ABX: TOTAL ABX DAY # 9 => Zosyn #6 s/p Vanco IV ID RECOMMENDATIONS: CONTINUE Current ABX -> DC soon as WBC normalizes Does she need to continue FC ? She is ambulatory to BRP in the room - recommend DC FC AGUSTIN if not required . Problems: Consultation Date/Type/Reason Admit Date/Time Apr 26, 2016 at 14:08 Initial Consult Date 04/26/16 Exam/Review of Systems Vital Signs Vitals Vital Signs Date Time Temp Pulse Resp B/P Pulse Ox O2 Delivery O2 Flow Rate FiO2 05/06/16 09:20 54 18 148/70 05/06/16 07:42 98.2 96 05/05/16 20:00 Room Air 05/04/16 18:37 2.0 Intake and Output 05/05/16 05/05/16 05/06/16 15:00 23:00 07:00 Intake Total 100 ml 1450 ml 850 ml Output Total 1307 ml 993 ml Balance 100 ml 143 ml -143 ml Results Result Diagram: 05/06/16 0450 05/06/16 0450 Results 24 hrs Laboratory Tests Test 05/05/16 21:06 05/06/16 04:50 05/06/16 08:32 Bedside Glucose 106 118 Anion Gap 15 Basophils # 0.0 Basophils % 0.0 Blood Morphology Comment Blood Urea Nitrogen 42 H Calcium Level 8.4 Carbon Dioxide Level 24 Chloride Level 106 Creatinine 1.91 H Eosinophils # 0.5 Eosinophils % 3.4 Glucose Level 103 Hematocrit 28.7 L Hemoglobin 9.6 L Lymphocytes # 1.5 Lymphocytes % 10.8 L Magnesium Level 1.7 Mean Corpuscular Hemoglobin 30.6 Mean Corpuscular Hemoglobin Concent 33.4 Mean Corpuscular Volume 91.6 Mean Platelet Volume 9.1 Monocytes # 1.0 H Monocytes % 7.6 Neutrophils # 10.8 H Neutrophils % 78.2 H Nucleated Red Blood Cells # 0.0 Nucleated Red Blood Cells % 0.0 Phosphorus Level 3.9 Platelet Count 311 Potassium Level 3.3 L Red Blood Count 3.14 L Red Cell Distribution Width 15.3 H Sodium Level 142 Triglycerides Level 153 H White Blood Count 13.8 H Medications Medications Current Medications Hydralazine HCl (Apresoline) 10 mg Q6H PRN IV SBP>160 Last administered on 05/04 14:21; Admin Dose 10 MG; Start 04/26/16 at 11:00 Ondansetron HCl 4 mg 4 mg Q6H PRN IV NAUSEA AND/OR VOMITING Last administered on 05/05/16 20:58; Admin Dose 4 MG; Start 04/28/16 at 21:00 Piperacillin Sod/ Tazobactam Sod (Zosyn 3.375gm/ 100 ml (Pmx)) 100 ml @ 200 mls /hr Q8 IVPB Last administered on 05/06/16 06:13; Admin Dose 200 MLS/HR; Start 05/01/16 at 12:00 Clonidine (Catapres) 0.1 mg Q6H PRN PO SBP >160 Last administered on 05/06/16 08:27; Admin Dose 0.1 MG; Start 05/01/16 at 10:30 Morphine Sulfate (morphine) 2 mg Q4H PRN IV breakthrough pain Last administered on 05/05/16 20:58; Admin Dose 2 MG; Start 05/01/16 at 12:30 Acetaminophen/ Codeine Phosphate 1 tab 1 tab Q6H PRN PO PAIN Last administered on 05/06/16 06:27; Admin Dose 1 TAB; Start 05/01/16 at 12:30 Total Parenteral Nutrition (Tpn) 1,000 ml @ 90 mls/hr Q11H7M IV Last administered on 05/05/16 21:59; Admin Dose 90 MLS/HR; Start 05/03/16 at 20:00 Diagnostic Test (Pha) (Accucheck) 1 ea Q12 XX Last administered on 05/06/16 09 :53; Admin Dose 1 EA; Start 05/04/16 at 21:00 Clonidine HCl (Catapres-Tts 1 Patch) 1 patch Q7D TRANSDERM Last administered on 05/04/16 13:38; Admin Dose 1 PATCH; Start 05/04/16 at 12:00 Octreotide Acetate (Sandostatin) 100 mcg TID SC Last administered on 05/06/16 08:30; Admin Dose 100 MCG; Start 05/05/16 at 21:00 Famotidine (Pepcid Iv) 20 mg BID IV Last administered on 05/06/16 08:31; Admin Dose 20 MG; Start 05/05/16 at 21:00 Pantoprazole 40 mg 40 mg DAILY@06 PO Last administered on 05/06/16 06:13; Admin Dose 40 MG; Start 05/05/16 at 16:00 Potassium Chloride/Sodium Chloride (KCl/NS) 110 ml @ 55 mls/hr ONCE ONCE IVPB ; Start 05/06/16 at 09:00; Stop 05/06/16 at 10:59 Atenolol (Tenormin) 75 mg DAILY PO ; Start 05/07/16 at 09:00 Hydralazine HCl (Apresoline) 25 mg Q8 PO ; Start 05/06/16 at 14:00 Hydralazine HCl (Apresoline) 10 mg Q6H PRN IV sbp>160mmhg; Start 05/06/16 at 10 :00 GEETA GONZALEZ NP May 06, 2016 10:46
[2016-05-06] MEDS: TPN 1,000 ML IV SCH (14:34)
--- NOTE | 2016-05-06 19:16 | PN ---
Date/Time of Note Date/Time of Note DATE: 05/06/16 TIME: 19:14 Assessment/Plan VTE Prophylaxis VTE Prophylaxis Intervention: SCD's Lines/Catheters IV Catheter Type (from Nrsg): port Urinary Cath still in place: Yes Assessment/Plan Chief Complaint/Hosp Course Ovarian cancer with hernia and possible SBO and recurrence. Problems: Assessment/Plan A- doing adequately P- Will taper TPN and sanostatin and adv diet. Will bladder train Subjective 24 Hr Interval Summary Free Text/Dictation S- Feels better overall with less pain and OOB more. + BM . O Resp- clear CVS- NSR Abd- soft, appropriate tenderness, clean with KORIN output Ext- NT no edema A- doing adequately P- Will taper TPN and sanostatin and adv diet. Will bladder train Exam/Review of Systems Vital Signs Vitals Vital Signs Date Time Temp Pulse Resp B/P Pulse Ox O2 Delivery O2 Flow Rate FiO2 05/06/16 09:20 54 18 148/70 05/06/16 07:42 98.2 96 05/05/16 20:00 Room Air 05/04/16 18:37 2.0 Intake and Output 05/05/16 05/05/16 05/06/16 15:00 23:00 07:00 Intake Total 100 ml 1450 ml 850 ml Output Total 1307 ml 993 ml Balance 100 ml 143 ml -143 ml Results Result Diagram: 05/06/16 0450 05/06/16 0450 Results 24 hrs Laboratory Tests Test 05/05/16 21:06 05/06/16 04:50 05/06/16 08:32 Bedside Glucose 106 118 Anion Gap 15 Basophils # 0.0 Basophils % 0.0 Blood Morphology Comment Blood Urea Nitrogen 42 H Calcium Level 8.4 Carbon Dioxide Level 24 Chloride Level 106 Creatinine 1.91 H Eosinophils # 0.5 Eosinophils % 3.4 Glucose Level 103 Hematocrit 28.7 L Hemoglobin 9.6 L Lymphocytes # 1.5 Lymphocytes % 10.8 L Magnesium Level 1.7 Mean Corpuscular Hemoglobin 30.6 Mean Corpuscular Hemoglobin Concent 33.4 Mean Corpuscular Volume 91.6 Mean Platelet Volume 9.1 Monocytes # 1.0 H Monocytes % 7.6 Neutrophils # 10.8 H Neutrophils % 78.2 H Nucleated Red Blood Cells # 0.0 Nucleated Red Blood Cells % 0.0 Phosphorus Level 3.9 Platelet Count 311 Potassium Level 3.3 L Red Blood Count 3.14 L Red Cell Distribution Width 15.3 H Sodium Level 142 Triglycerides Level 153 H White Blood Count 13.8 H Medications Medications Current Medications Hydralazine HCl (Apresoline) 10 mg Q6H PRN IV SBP>160 Last administered on 05/04 14:21; Admin Dose 10 MG; Start 04/26/16 at 11:00 Ondansetron HCl 4 mg 4 mg Q6H PRN IV NAUSEA AND/OR VOMITING Last administered on 05/05/16 20:58; Admin Dose 4 MG; Start 04/28/16 at 21:00 Piperacillin Sod/ Tazobactam Sod (Zosyn 3.375gm/ 100 ml (Pmx)) 100 ml @ 200 mls /hr Q8 IVPB Last administered on 05/06/16 13:46; Admin Dose 200 MLS/HR; Start 05/01/16 at 12:00 Clonidine (Catapres) 0.1 mg Q6H PRN PO SBP >160 Last administered on 05/06/16 08:27; Admin Dose 0.1 MG; Start 05/01/16 at 10:30 Morphine Sulfate (morphine) 2 mg Q4H PRN IV breakthrough pain Last administered on 05/05/16 20:58; Admin Dose 2 MG; Start 05/01/16 at 12:30 Acetaminophen/ Codeine Phosphate (Tylenol No.3) 1 tab Q6H PRN PO PAIN Last administered on 05/06/16 06:27; Admin Dose 1 TAB; Start 05/01/16 at 12:30 Diagnostic Test (Pha) (Accucheck) 1 ea Q12 XX Last administered on 05/06/16 09 :53; Admin Dose 1 EA; Start 05/04/16 at 21:00 Clonidine HCl (Catapres-Tts 1 Patch) 1 patch Q7D TRANSDERM Last administered on 05/04/16 13:38; Admin Dose 1 PATCH; Start 05/04/16 at 12:00 Octreotide Acetate (Sandostatin) 100 mcg TID SC Last administered on 05/06/16 13:47; Admin Dose 100 MCG; Start 05/05/16 at 21:00 Famotidine (Pepcid Iv) 20 mg BID IV Last administered on 05/06/16 08:31; Admin Dose 20 MG; Start 05/05/16 at 21:00 Pantoprazole (Protonix Tab) 40 mg DAILY@06 PO Last administered on 05/06/16 06 :13; Admin Dose 40 MG; Start 05/05/16 at 16:00 Atenolol (Tenormin) 75 mg DAILY PO ; Start 05/07/16 at 09:00 Hydralazine HCl (Apresoline) 25 mg Q8 PO Last administered on 05/06/16 13:50; Admin Dose 25 MG; Start 05/06/16 at 14:00 Hydralazine HCl 10 mg 10 mg Q6H PRN IV sbp>160mmhg; Start 05/06/16 at 10:00 Total Parenteral Nutrition (Tpn) 1,000 ml @ 45 mls/hr [id number] IV Last administered on 05/06/16 14:34; Admin Dose 45 MLS/HR; Start 05/06/16 at 14:30 LEELA VILLANUEVA MD May 06, 2016 19:16
[2016-05-06 20:10] VITALS: BP 155/83; RESP 20
[2016-05-06] MEDS: morphine 2 MG INJ IV PRN (22:51)
[2016-05-07 05:15] LABS: BASOPHIL # 0.1 10^3/ul (0.0-0.1); BASOPHILS % 0.3 % (0.0-2.0); EOSINOPHILS # 0.5 10^3/ul (0.0-0.5); EOSINOPHILS % 2.9 % (0.0-7.0); HEMATOCRIT 28.8 % (37.0-47.0); HEMOGLOBIN 9.7 g/dl (12.0-16.0); LYMPHOCYTES # 1.4 10^3/ul (0.8-2.9); LYMPHOCYTES % 9.1 % (15.0-51.0); MEAN CORPUSCULAR HEMOGLOBIN 30.8 pg (29.0-33.0); MEAN CORPUSCULAR HGB CONC 33.6 g/dl (32.0-37.0); MEAN CORPUSCULAR VOLUME 91.6 fl (82.0-101.0); MEAN PLATELET VOLUME 8.9 fl (7.4-10.4); MONOCYTE # 0.8 10^3/ul (0.3-0.9); MONOCYTES % 4.9 % (0.0-11.0); NEUTROPHIL # 13.1 10^3/ul (1.6-7.5); NEUTROPHILS % 82.8 % (39.0-77.0); PLATELET COUNT 365 10^3/UL (140-440); RED BLOOD COUNT 3.15 10^6/ul (4.20-5.40); RED CELL DISTRIBUTION WIDTH 15.7 % (11.5-14.5); UNCORRECTED WBC 15.8 10^3/ul (4.8-10.8); WHITE BLOOD COUNT 15.8 10^3/ul (4.8-10.8)
[2016-05-07 05:23] LABS: POTASSIUM 3.6 mmol/L (3.5-5.1)
[2016-05-07 05:25] LABS: CONDITION 1; CREATININE 1.99 mg/dl (0.44-1.00)
[2016-05-07 05:26] LABS: CALCIUM 8.6 mg/dl (8.4-10.2); LH ANALYZER COMMENTS 1; MAGNESIUM 1.6 mg/dl (1.7-2.5); PHOSPHORUS 4.1 mg/dl (2.5-4.9)
[2016-05-07] MEDS: PIPER-TAZO 3.375 GM IV (PMX) 100 ML IVPB SCH ×3 (05:49→21:46)
[2016-05-07] MEDS: PANTOPRAZOLE (EC) 40 MG TAB PO SCH (05:50)
[2016-05-07 07:54] VITALS: BP 188/86; RESP 19
[2016-05-07] MEDS ORDERED: MAGNESIUM SULFATE 1 GM/D5W 100 ML IVPB ONE (08:30)
--- NOTE | 2016-05-07 08:59 | PN ---
Date/Time of Note Date/Time of Note DATE: 05/06/16 TIME: 09:35 Assessment/Plan VTE Prophylaxis VTE Prophylaxis Intervention: SCD's Lines/Catheters IV Catheter Type (from Nrsg): portacath Urinary Cath still in place: Yes Reason Cath still needed: other (indicate) Assessment/Plan Assessment/Plan 55 yo F with abd pain 2/2 diffuse metastatic disease managed for : 1. Metastatic ovarian cancer. CT scan showing multiple soft tissue masses within the abdomen and pelvis, consistent with metastatic disease. The CT scan also revealed moderate midline upper wall ventral hernia containing multiple loops of small bowel with no evidence of small bowel obstruction. S/P debulking surgery, hernia repair + bowel resection 04/29/16 / continue routine postop care / modify pain regime / appreciate Hoist Cylinder Loader Onc rec's / monitor drains, UO / continue Sandostatin per Hoist Cylinder Loader onc to reduce pancreatic secretions 2. History of left lower extremity deep venous thrombosis - apparently pt had been on Coumadin. INR subtherapeutic. The patient's DVT was diagnosed approximately 8 months ago. However bilateral lower extremity venous Doppler study performed this admission (04/27/16) = neg for DVT. - holding Coumadin at this time re: recent surgery - patient may need IVC filter 3. Normocytic normochromic anemia - again, s/p pRBC transfusion on this admission - Will monitor the H and H closely 4. Transaminitis without hyperbilirubinemia. Etiology unclear. from recent surgery versus mets -Will monitor the LFTs closely / trending down at this time - Will avoid any hepatotoxic medications. 5. Essential hypertension - Blood pressure control slightly better on scheduled and PRN hydralazine / patient on sandostatin, may be contributory - Continue antihypertensives. 6. Fluid, electrolytes, and nutrition. -Started on TPN / Started on CLD this am / begin TPN weaning if she tolerates it 7. SIRS: improving Patient on Zosyn alone, Vanco d/c 2/2 worsening renal fxn/ trend levels /ID consult appreciated / repeat cultures all negative so far / encourage ambulation / Incentive Spirometer use 8. New L sided effusion on CXR r/o infiltrate: patient encouraged to ambulate and use Incentive spirometer 9. Acute kidney injury likely secondary to acute tubular necrosis due to multifactorial etiologies including vancomycin associated nephrotoxicity, hemodynamic fluctuations, hypertensive urgency Nephrology managing. Thinks patient is still in injury phase Avoid nephrotoxins, renally dose meds, monitor creatinine Deep venous thrombosis prophylaxis - SCD's Gastrointestinal prophylaxis. Histamine 2 receptor blockers. Dispo: Continue routine postop care Patient will have to be reassessed for need for anticoagulation when ok with surgery based on hypercoagulable state and hx of DVT Subjective 24 Hr Interval Summary Free Text/Dictation Patient seen and examined. Was able to get in a chair yesterday with 2 person assist Exam/Review of Systems Vital Signs Vitals Vital Signs Date Time Temp Pulse Resp B/P Pulse Ox O2 Delivery O2 Flow Rate FiO2 05/06/16 09:20 54 18 148/70 05/06/16 07:42 98.2 96 05/05/16 20:00 Room Air 05/04/16 18:37 2.0 Intake and Output 05/05/16 05/05/16 05/06/16 15:00 23:00 07:00 Intake Total 100 ml 1450 ml 850 ml Output Total 1307 ml 993 ml Balance 100 ml 143 ml -143 ml Exam Constitutional: alert, obese, oriented, No distress Psych: nl mood/affect Head: atraumatic, normocephalic Eyes: PERRL, icteric (?mild) Neck: non-tender Respiratory: clear to auscultation, diminished breath sounds Cardiovascular: regular rate and rhythm, No murmurs/extra sounds Gastrointestinal: bowel sounds, distended, soft, surgical scars Extremities: No edema Neurological: lethargic, nl mental status, nl speech Results Result Diagram: 05/06/16 0450 05/06/16 0450 Results 24 hrs Laboratory Tests Test 05/05/16 21:06 05/06/16 04:50 05/06/16 08:32 Bedside Glucose 106 118 Anion Gap 15 Basophils # 0.0 Basophils % 0.0 Blood Morphology Comment Blood Urea Nitrogen 42 H Calcium Level 8.4 Carbon Dioxide Level 24 Chloride Level 106 Creatinine 1.91 H Eosinophils # 0.5 Eosinophils % 3.4 Glucose Level 103 Hematocrit 28.7 L Hemoglobin 9.6 L Lymphocytes # 1.5 Lymphocytes % 10.8 L Magnesium Level 1.7 Mean Corpuscular Hemoglobin 30.6 Mean Corpuscular Hemoglobin Concent 33.4 Mean Corpuscular Volume 91.6 Mean Platelet Volume 9.1 Monocytes # 1.0 H Monocytes % 7.6 Neutrophils # 10.8 H Neutrophils % 78.2 H Nucleated Red Blood Cells # 0.0 Nucleated Red Blood Cells % 0.0 Phosphorus Level 3.9 Platelet Count 311 Potassium Level 3.3 L Red Blood Count 3.14 L Red Cell Distribution Width 15.3 H Sodium Level 142 Triglycerides Level 153 H White Blood Count 13.8 H Medications Medications Current Medications Hydralazine HCl (Apresoline) 10 mg Q6H PRN IV SBP>160 Last administered on 05/04 14:21; Admin Dose 10 MG; Start 04/26/16 at 11:00 Ondansetron HCl (Zofran Inj) 4 mg Q6H PRN IV NAUSEA AND/OR VOMITING Last administered on 05/05/16 20:58; Admin Dose 4 MG; Start 04/28/16 at 21:00 Atenolol 50 mg 50 mg DAILY PO Last administered on 05/06/16 08:27; Admin Dose 50 MG; Start 05/01/16 at 10:30 Piperacillin Sod/ Tazobactam Sod (Zosyn 3.375gm/ 100 ml (Pmx)) 100 ml @ 200 mls /hr Q8 IVPB Last administered on 05/06/16 06:13; Admin Dose 200 MLS/HR; Start 05/01/16 at 12:00 Clonidine (Catapres) 0.1 mg Q6H PRN PO SBP >160 Last administered on 05/06/16 08:27; Admin Dose 0.1 MG; Start 05/01/16 at 10:30 Morphine Sulfate (morphine) 2 mg Q4H PRN IV breakthrough pain Last administered on 05/05/16 20:58; Admin Dose 2 MG; Start 05/01/16 at 12:30 Acetaminophen/ Codeine Phosphate (Tylenol No.3) 1 tab Q6H PRN PO PAIN Last administered on 05/06/16 06:27; Admin Dose 1 TAB; Start 05/01/16 at 12:30 Hydralazine HCl 10 mg 10 mg Q6 IV Last administered on 05/06/16 06:14; Admin Dose 10 MG; Start 05/03/16 at 12:00 Total Parenteral Nutrition (Tpn) 1,000 ml @ 90 mls/hr Q11H7M IV Last administered on 05/05/16 21:59; Admin Dose 90 MLS/HR; Start 05/03/16 at 20:00 Diagnostic Test (Pha) (Accucheck) 1 ea Q12 XX Last administered on 05/05/16 20 :49; Admin Dose 1 EA; Start 05/04/16 at 21:00 Clonidine HCl (Catapres-Tts 1 Patch) 1 patch Q7D TRANSDERM Last administered on 05/04/16 13:38; Admin Dose 1 PATCH; Start 05/04/16 at 12:00 Octreotide Acetate (Sandostatin) 100 mcg TID SC Last administered on 05/06/16 08:30; Admin Dose 100 MCG; Start 05/05/16 at 21:00 Famotidine (Pepcid Iv) 20 mg BID IV Last administered on 05/06/16 08:31; Admin Dose 20 MG; Start 05/05/16 at 21:00 Pantoprazole 40 mg 40 mg DAILY@06 PO Last administered on 05/06/16 06:13; Admin Dose 40 MG; Start 05/05/16 at 16:00 Potassium Chloride/Sodium Chloride (KCl/NS) 110 ml @ 55 mls/hr ONCE ONCE IVPB ; Start 05/06/16 at 09:00; Stop 05/06/16 at 10:59 ABDIRIZAK VARGAS May 06, 2016 09:46
[2016-05-07] MEDS: ACCUCHECK XX SCH ×2 (09:00→21:00)
--- NOTE | 2016-05-07 09:04 | PN ---
Date/Time of Note Date/Time of Note DATE: 05/07/16 TIME: 08:59 Assessment/Plan VTE Prophylaxis VTE Prophylaxis Intervention: SCD's Lines/Catheters IV Catheter Type (from Nrsg): portacath Urinary Cath still in place: Yes Reason Cath still needed: other (indicate) Assessment/Plan Assessment/Plan 55 yo F with abd pain 2/2 diffuse metastatic disease managed for : 1. Metastatic ovarian cancer. CT scan showing multiple soft tissue masses within the abdomen and pelvis, consistent with metastatic disease. The CT scan also revealed moderate midline upper wall ventral hernia containing multiple loops of small bowel with no evidence of small bowel obstruction. S/P debulking surgery, hernia repair + bowel resection 04/29/16 / continue routine postop care / modify pain regime / appreciate [employer] Specialist Onc rec's / monitor drains, UO / continue Sandostatin per [employer]ist onc to reduce pancreatic secretions 2. History of left lower extremity deep venous thrombosis - apparently pt had been on Coumadin. INR subtherapeutic. The patient's DVT was diagnosed approximately 8 months ago. However bilateral lower extremity venous Doppler study performed this admission (04/27/16) = neg for DVT. - holding Coumadin at this time re: recent surgery - patient may need IVC filter 3. Normocytic normochromic anemia - again, s/p pRBC transfusion on this admission - Will monitor the H and H closely 4. Transaminitis without hyperbilirubinemia. Etiology unclear. from recent surgery versus mets: resolved 5. Essential hypertension - Blood pressure control slightly better on scheduled and PRN hydralazine / patient on sandostatin, may be contributory - Continue antihypertensives. 6. Fluid, electrolytes, and nutrition. -Tolerating CLD / TPN weaning commenced yesterday 7. SIRS: improving Patient on Zosyn alone, Vanco d/c 2/2 worsening renal fxn/ trend levels /ID consult appreciated / repeat cultures all negative so far / encourage ambulation / Incentive Spirometer use 8. New L sided effusion on CXR r/o infiltrate: patient encouraged to ambulate and use Incentive spirometer 9. Acute kidney injury likely secondary to acute tubular necrosis due to multifactorial etiologies including vancomycin associated nephrotoxicity, hemodynamic fluctuations, hypertensive urgency Nephrology managing / Avoid nephrotoxins, renally dose meds, monitor creatinine DISPO" Continue routine postop [employer]ist surg managing diet and ang Deep venous thrombosis prophylaxis - SCD's Gastrointestinal prophylaxis. Histamine 2 receptor blockers. Subjective 24 Hr Interval Summary Free Text/Dictation Patient seen and examined. Exam/Review of Systems Vital Signs Vitals Vital Signs Date Time Temp Pulse Resp B/P Pulse Ox O2 Delivery O2 Flow Rate FiO2 05/07/16 07:54 98.7 54 19 188/86 100 05/05/16 20:00 Room Air 05/04/16 18:37 2.0 Intake and Output 05/06/16 05/06/16 05/07/16 15:00 23:00 07:00 Intake Total 1210 ml 1085 ml 200 ml Output Total 840 ml 700 ml Balance 1210 ml 245 ml -500 ml Exam Constitutional: alert, obese, oriented, No distress Psych: nl mood/affect Head: atraumatic, normocephalic Eyes: PERRL Neck: non-tender Respiratory: clear to auscultation, diminished breath sounds Cardiovascular: regular rate and rhythm, No murmurs/extra sounds Gastrointestinal: bowel sounds, distended, soft, surgical scars Extremities: No edema Neurological: nl mental status, nl speech Results Result Diagram: 05/07/16 0435 05/07/16 0435 Results 24 hrs Laboratory Tests Test 05/06/16 21:25 05/07/16 04:35 05/07/16 08:36 Bedside Glucose 89 100 Anion Gap 13 Basophils # 0.1 Basophils % 0.3 Blood Morphology Comment Blood Urea Nitrogen 37 H Calcium Level 8.6 Carbon Dioxide Level 27 Chloride Level 106 Creatinine 1.99 H Eosinophils # 0.5 Eosinophils % 2.9 Glucose Level 99 Hematocrit 28.8 L Hemoglobin 9.7 L Lymphocytes # 1.4 Lymphocytes % 9.1 L Magnesium Level 1.6 L Mean Corpuscular Hemoglobin 30.8 Mean Corpuscular Hemoglobin Concent 33.6 Mean Corpuscular Volume 91.6 Mean Platelet Volume 8.9 Monocytes # 0.8 Monocytes % 4.9 Neutrophils # 13.1 H Neutrophils % 82.8 H Nucleated Red Blood Cells # 0.0 Nucleated Red Blood Cells % 0.0 Phosphorus Level 4.1 Platelet Count 365 Potassium Level 3.6 Red Blood Count 3.15 L Red Cell Distribution Width 15.7 H Sodium Level 142 Triglycerides Level 201 H White Blood Count 15.8 H Medications Medications Current Medications Hydralazine HCl (Apresoline) 10 mg Q6H PRN IV SBP>160 Last administered on 05/04 14:21; Admin Dose 10 MG; Start 04/26/16 at 11:00 Ondansetron HCl 4 mg 4 mg Q6H PRN IV NAUSEA AND/OR VOMITING Last administered on 05/05/16 20:58; Admin Dose 4 MG; Start 04/28/16 at 21:00 Piperacillin Sod/ Tazobactam Sod (Zosyn 3.375gm/ 100 ml (Pmx)) 100 ml @ 200 mls /hr Q8 IVPB Last administered on 05/07/16 05:49; Admin Dose 200 MLS/HR; Start 05/01/16 at 12:00 Clonidine (Catapres) 0.1 mg Q6H PRN PO SBP >160 Last administered on 05/06/16 08:27; Admin Dose 0.1 MG; Start 05/01/16 at 10:30 Morphine Sulfate (morphine) 2 mg Q4H PRN IV breakthrough pain Last administered on 05/06/16 22:51; Admin Dose 2 MG; Start 05/01/16 at 12:30 Acetaminophen/ Codeine Phosphate (Tylenol No.3) 1 tab Q6H PRN PO PAIN Last administered on 05/06/16 06:27; Admin Dose 1 TAB; Start 05/01/16 at 12:30 Diagnostic Test (Pha) (Accucheck) 1 ea Q12 XX Last administered on 05/06/16 21 :00; Admin Dose 1 EA; Start 05/04/16 at 21:00 Clonidine HCl (Catapres-Tts 1 Patch) 1 patch Q7D TRANSDERM Last administered on 05/04/16 13:38; Admin Dose 1 PATCH; Start 05/04/16 at 12:00 Famotidine (Pepcid Iv) 20 mg BID IV Last administered on 05/06/16 21:05; Admin Dose 20 MG; Start 05/05/16 at 21:00 Pantoprazole (Protonix Tab) 40 mg DAILY@06 PO Last administered on 05/07/16 05 :50; Admin Dose 40 MG; Start 05/05/16 at 16:00 Atenolol (Tenormin) 75 mg DAILY PO ; Start 05/07/16 at 09:00 Hydralazine HCl (Apresoline) 25 mg Q8 PO Last administered on 05/07/16 05:58; Admin Dose 25 MG; Start 05/06/16 at 14:00 Hydralazine HCl 10 mg 10 mg Q6H PRN IV sbp>160mmhg; Start 05/06/16 at 10:00 Total Parenteral Nutrition (Tpn) 1,000 ml @ 45 mls/hr [id number] IV Last administered on 05/06/16 14:34; Admin Dose 45 MLS/HR; Start 05/06/16 at 14:30 Octreotide Acetate 50 mcg 50 mcg TID SC Last administered on 05/06/16 22:48; Admin Dose 50 MCG; Start 05/06/16 at 21:00 Magnesium Sulfate/ Dextrose (Magnesium Sulfate 1 Gm/D5W) 100 ml @ 100 mls/hr ONCE ONCE IVPB ; Start 05/07/16 at 08:30; Stop 05/07/16 at 09:29 Procedures Procedures PT NOTE: PT evaluation completed. EVELIA Marti reports pt is stable, cleared to proceed with PT. Pt in bed, alert/awake/oriented x 4, S/P Exploratory Laparotomy on , C/O abdominal/incisional pain PS 5/10, with pain meds, agreed to participate with PT as adriana. Overall ROM are WFL with 3+/5 muscle strength on bilat UE's, 3/5 on bilat LE's. G/F+ sitting balance at EOB, F/F- standing balance at bedside. CGA with bed mobility, with all transfers (supine <-> sit at EOB, sit <-> stand at bedside) and ambulation using FWW. Unable to progress long distance ambulation at this time as pt easily gets tired, fatigued and SOB. Assisted pt BTB, side rails up, call light on hand. Informed EVELIA Marti regarding pt's condition, progress with PT and clearance for OOB to chair/ toilet with use of FWW and RN/SERVICE ORDER DISPATCHER assist for safety. Will see pt once daily/ 5 x a wk/ LOS or until goals are met for bed mobility, transfer training, functional activity, balance activity, thera ex, gait training and pt/family education regarding safety awareness and fall prevention. Recommend FWW for safety and Home Health PT to con't skilled rehab treatment upon D/C. ABDIRIZAK VARGAS May 07, 2016 09:04
[2016-05-07] MEDS: OCTREOTIDE 50 MCG INJ SC SCH ×3 (09:37→21:36)
[2016-05-07] MEDS: ATENOLOL 50 MG TAB PO SCH (09:38)
[2016-05-07] MEDS: FAMOTIDINE 20 MG TAB PO SCH ×2 (10:24→21:37)
--- NOTE | 2016-05-07 12:25 | CONS ---
Date/Time of Note Date/Time of Note DATE: 05/07/16 TIME: 12:22 Assessment/Plan Assessment/Plan Chief Complaint/Hosp Course ID PROGRESS NOTE TOTAL ABX DAY # 10 => Zosyn #7 s/p Vanco s/p Ancef 24H INTERVAL SUMMARY * Doing about the same -- no changes overnight * Awake, alert, ambulated to bathroom and OOB->Chair, (+)BM 05/06/16 * No fevers, WBC down trend, TPN via right chest port, supplemental o2 Via NC * J-P drain removed 05/06 PHYSICAL EXAMINATION: GENERAL: 55 yo F HEENT: Unremarkable NECK: Supple, trachea midline. CHEST: Rise symmetrical without dyspnea on supplemental O2 via NC, off O2 to BRP without dyspnea HEART: RRR ABDOMEN: Soft, DSG C/D/I EXTREMITIES: Warm ID ASSESSMENT: 55 yo obese F with: 1. Metastatic ovarian carcinoma status post tumor debulking with hematoma repair bowel resection on 04/29/2016. * J-P drain removed 05/06 * Concern for recurrence SBO ->(+)BM 05/06, Remains on TPN 2. Systemic inflammatory response syndrome with leukocytosis, status post low grade fevers = RESOLVING 3. Acute renal failure. 4. HTN 5. Small left pleural effusion and obscuration of the left hemidiaphragm due to atelectasis, infiltrate, and / or effusion seen on CXR 05/03/15. 6. History of left lower extremity deep venous thrombosis-> (-)DVT on US this admission INVASIVES: *Port-A-Cath, FC CURRENT ABX: TOTAL ABX DAY # 10 => Zosyn #7 s/p Vanco IV ID RECOMMENDATIONS: CONTINUE Current ABX -> DC soon as WBC normalizes Does she need to continue FC ? She is ambulatory to BRP in the room - recommend DC FC AGUSTIN if not required . Problems: Consultation Date/Type/Reason Admit Date/Time Apr 26, 2016 at 14:08 Initial Consult Date 04/26/16 Exam/Review of Systems Vital Signs Vitals Vital Signs Date Time Temp Pulse Resp B/P Pulse Ox O2 Delivery O2 Flow Rate FiO2 05/07/16 07:54 98.7 54 19 188/86 100 05/05/16 20:00 Room Air 05/04/16 18:37 2.0 Intake and Output 05/06/16 05/06/16 05/07/16 15:00 23:00 07:00 Intake Total 1210 ml 1085 ml 200 ml Output Total 840 ml 700 ml Balance 1210 ml 245 ml -500 ml Results Result Diagram: 05/07/16 0435 05/07/16 0435 Results 24 hrs Laboratory Tests Test 05/06/16 21:25 05/07/16 04:35 05/07/16 08:36 Bedside Glucose 89 100 Anion Gap 13 Basophils # 0.1 Basophils % 0.3 Blood Morphology Comment Blood Urea Nitrogen 37 H Calcium Level 8.6 Carbon Dioxide Level 27 Chloride Level 106 Creatinine 1.99 H Eosinophils # 0.5 Eosinophils % 2.9 Glucose Level 99 Hematocrit 28.8 L Hemoglobin 9.7 L Lymphocytes # 1.4 Lymphocytes % 9.1 L Magnesium Level 1.6 L Mean Corpuscular Hemoglobin 30.8 Mean Corpuscular Hemoglobin Concent 33.6 Mean Corpuscular Volume 91.6 Mean Platelet Volume 8.9 Monocytes # 0.8 Monocytes % 4.9 Neutrophils # 13.1 H Neutrophils % 82.8 H Nucleated Red Blood Cells # 0.0 Nucleated Red Blood Cells % 0.0 Phosphorus Level 4.1 Platelet Count 365 Potassium Level 3.6 Red Blood Count 3.15 L Red Cell Distribution Width 15.7 H Sodium Level 142 Triglycerides Level 201 H White Blood Count 15.8 H Medications Medications Current Medications Hydralazine HCl (Apresoline) 10 mg Q6H PRN IV SBP>160 Last administered on 05/04 14:21; Admin Dose 10 MG; Start 04/26/16 at 11:00 Ondansetron HCl 4 mg 4 mg Q6H PRN IV NAUSEA AND/OR VOMITING Last administered on 05/05/16 20:58; Admin Dose 4 MG; Start 04/28/16 at 21:00 Piperacillin Sod/ Tazobactam Sod (Zosyn 3.375gm/ 100 ml (Pmx)) 100 ml @ 200 mls /hr Q8 IVPB Last administered on 05/07/16 05:49; Admin Dose 200 MLS/HR; Start 05/01/16 at 12:00 Clonidine (Catapres) 0.1 mg Q6H PRN PO SBP >160 Last administered on 05/06/16 08:27; Admin Dose 0.1 MG; Start 05/01/16 at 10:30 Morphine Sulfate (morphine) 2 mg Q4H PRN IV breakthrough pain Last administered on 05/06/16 22:51; Admin Dose 2 MG; Start 05/01/16 at 12:30 Acetaminophen/ Codeine Phosphate (Tylenol No.3) 1 tab Q6H PRN PO PAIN Last administered on 05/06/16 06:27; Admin Dose 1 TAB; Start 05/01/16 at 12:30 Diagnostic Test (Pha) (Accucheck) 1 ea Q12 XX Last administered on 05/06/16 21 :00; Admin Dose 1 EA; Start 05/04/16 at 21:00 Clonidine HCl (Catapres-Tts 1 Patch) 1 patch Q7D TRANSDERM Last administered on 05/04/16 13:38; Admin Dose 1 PATCH; Start 05/04/16 at 12:00 Pantoprazole (Protonix Tab) 40 mg DAILY@06 PO Last administered on 05/07/16 05 :50; Admin Dose 40 MG; Start 05/05/16 at 16:00 Atenolol (Tenormin) 75 mg DAILY PO Last administered on 05/07/16 09:38; Admin Dose 75 MG; Start 05/07/16 at 09:00 Hydralazine HCl (Apresoline) 25 mg Q8 PO Last administered on 05/07/16 05:58; Admin Dose 25 MG; Start 05/06/16 at 14:00 Hydralazine HCl 10 mg 10 mg Q6H PRN IV sbp>160mmhg; Start 05/06/16 at 10:00 Total Parenteral Nutrition (Tpn) 1,000 ml @ 45 mls/hr [id number] IV Last administered on 05/06/16 14:34; Admin Dose 45 MLS/HR; Start 05/06/16 at 14:30 Octreotide Acetate (Sandostatin) 50 mcg TID SC Last administered on 05/07/16 09:37; Admin Dose 50 MCG; Start 05/06/16 at 21:00 Famotidine (Pepcid) 20 mg BID PO Last administered on 05/07/16 10:24; Admin Dose 20 MG; Start 05/07/16 at 10:00 GEETA GONZALEZ NP May 07, 2016 12:25
[2016-05-07 13:45] VITALS: BP 183/82; PULSE 55; RESP 18
--- NOTE | 2016-05-07 15:16 | PN ---
DATE: 05/07/2016 SUBJECTIVE: The patient continues blood pressure fluctuations and episodes of hypotension. No othe r acute events noted. No hemoptysis, hematemesis or hematochezia. OBJECTIVE: VITAL SIGNS: Blood pressure is 188/86, respirations 19, pulse 54, temperature 98.6. I's AND O'S: The patient had 2.9 liters in, 1.5 liters out. HEENT: Head is normocephalic. NECK: Supple. HEART: Regular rate. LUNGS: Show diminished breath sounds at base. ABDOMEN: Soft, mild tenderness to palpation, positive laparotomy incision noted. DERMATOLOGIC: No rashes. MUSCULOSKELETAL: No joint effusions. NEUROLOGIC: No change in exam. MEDICATIONS: The patient's medications have been reviewed. LABORATORY DATA: Shows sodium 142, potassium 3.6, chloride 106, BUN 37, creatinine 1.99. White cou nt 15.8, hemoglobin 9.7, hematocrit 28.8, platelet count is 365. ASSESSMENT AND PLAN: 1. Nonoliguric acute kidney injury with previous baseline creatinine of 0.9 mg/dL. The etiology is secondary to acute tubular necrosis due to multifactorial causes. Renal function has been fluctuat ing but overall improving. In the last 24 hours, there was a slight increase in creatinine from 1.9 1 to 1.99 mg/dL. At this point, continue current treatment plan. Continue supportive care, renally dose medications, avoid nephrotoxins and monitor closely. 2. Hypomagnesemia, replete with magnesium sulfate 2 grams IV x1. 3. Anemia. Continue to monitor hemoglobin and hematocrit levels. 4. Mineral bone septic to monitor calcium and phosphorus levels. 5. Hypertensive urgency. Continue current blood pressure regimen. 6. Metastatic ovarian CA status post debulking surgery. Continue to monitor. Follow up with [facility] [employer]/o ncology. . 7. Deep venous thrombosis. Continue medical management. 8. Systemic inflammatory response syndrome with leukocytosis. The patient is on antibiotic therapy , continue. Follow up with infectious disease. Dictated By: JAHAIRA FELICIANO/COLTON Conf#: [id number] DID#: [id number]
[2016-05-07 20:12] VITALS: BP 199/89; RESP 20
--- NOTE | 2016-05-07 20:49 | PN ---
Date/Time of Note Date/Time of Note DATE: 05/07/16 TIME: 20:47 Assessment/Plan VTE Prophylaxis VTE Prophylaxis Intervention: LMWH Lines/Catheters IV Catheter Type (from Nrs): portacath Urinary Cath still in place: Yes Assessment/Plan Chief Complaint/Hosp Course Ovarian cancer with hernia and possible SBO and recurrence. Problems: Assessment/Plan A- doing adequately P- Will taper TPN tomorrow and d/c Sandostatin tomorrow and adv diet. Will bladder train. Concur with Lovenox Subjective 24 Hr Interval Summary Free Text/Dictation S- Feels better overall with less pain and OOB more. + BM . O Resp- clear CVS- NSR Abd- soft, appropriate tenderness, clean with KORIN output Ext- NT no edema A- doing adequately P- Will taper TPN tomorrow and d/c Sandostatin tomorrow and adv diet. Will bladder train. Concur with Lovenox Exam/Review of Systems Vital Signs Vitals Vital Signs Date Time Temp Pulse Resp B/P Pulse Ox O2 Delivery O2 Flow Rate FiO2 05/07/16 20:12 99.0 60 20 199/89 99 05/07/16 13:45 Room Air 05/04/16 18:37 2.0 Intake and Output 05/06/16 05/06/16 05/07/16 15:00 23:00 07:00 Intake Total 1210 ml 1085 ml 200 ml Output Total 840 ml 700 ml Balance 1210 ml 245 ml -500 ml Results Result Diagram: 05/07/16 0435 05/07/16 0435 Results 24 hrs Laboratory Tests Test 05/06/16 21:25 05/07/16 04:35 05/07/16 08:36 Bedside Glucose 89 100 Anion Gap 13 Basophils # 0.1 Basophils % 0.3 Blood Morphology Comment Blood Urea Nitrogen 37 H Calcium Level 8.6 Carbon Dioxide Level 27 Chloride Level 106 Creatinine 1.99 H Eosinophils # 0.5 Eosinophils % 2.9 Glucose Level 99 Hematocrit 28.8 L Hemoglobin 9.7 L Lymphocytes # 1.4 Lymphocytes % 9.1 L Magnesium Level 1.6 L Mean Corpuscular Hemoglobin 30.8 Mean Corpuscular Hemoglobin Concent 33.6 Mean Corpuscular Volume 91.6 Mean Platelet Volume 8.9 Monocytes # 0.8 Monocytes % 4.9 Neutrophils # 13.1 H Neutrophils % 82.8 H Nucleated Red Blood Cells # 0.0 Nucleated Red Blood Cells % 0.0 Phosphorus Level 4.1 Platelet Count 365 Potassium Level 3.6 Red Blood Count 3.15 L Red Cell Distribution Width 15.7 H Sodium Level 142 Triglycerides Level 201 H White Blood Count 15.8 H Medications Medications Current Medications Ondansetron HCl 4 mg 4 mg Q6H PRN IV NAUSEA AND/OR VOMITING Last administered on 05/05/16 20:58; Admin Dose 4 MG; Start 04/28/16 at 21:00 Piperacillin Sod/ Tazobactam Sod (Zosyn 3.375gm/ 100 ml (Pmx)) 100 ml @ 200 mls /hr Q8 IVPB Last administered on 05/07/16 16:39; Admin Dose 200 MLS/HR; Start 05/01/16 at 12:00 Clonidine (Catapres) 0.1 mg Q6H PRN PO SBP >160 Last administered on 05/06/16 08:27; Admin Dose 0.1 MG; Start 05/01/16 at 10:30 Morphine Sulfate (morphine) 2 mg Q4H PRN IV breakthrough pain Last administered on 05/06/16 22:51; Admin Dose 2 MG; Start 05/01/16 at 12:30 Acetaminophen/ Codeine Phosphate (Tylenol No.3) 1 tab Q6H PRN PO PAIN Last administered on 05/06/16 06:27; Admin Dose 1 TAB; Start 05/01/16 at 12:30 Diagnostic Test (Pha) (Accucheck) 1 ea Q12 XX Last administered on 05/06/16 21 :00; Admin Dose 1 EA; Start 05/04/16 at 21:00 Clonidine HCl (Catapres-Tts 1 Patch) 1 patch Q7D TRANSDERM Last administered on 05/04/16 13:38; Admin Dose 1 PATCH; Start 05/04/16 at 12:00 Pantoprazole (Protonix Tab) 40 mg DAILY@06 PO Last administered on 05/07/16 05 :50; Admin Dose 40 MG; Start 05/05/16 at 16:00 Atenolol (Tenormin) 75 mg DAILY PO Last administered on 05/07/16 09:38; Admin Dose 75 MG; Start 05/07/16 at 09:00 Hydralazine HCl (Apresoline) 25 mg Q8 PO Last administered on 05/07/16 16:39; Admin Dose 25 MG; Start 05/06/16 at 14:00 Hydralazine HCl 10 mg 10 mg Q6H PRN IV sbp>160mmhg; Start 05/06/16 at 10:00 Total Parenteral Nutrition (Tpn) 1,000 ml @ 45 mls/hr [id number] IV Last administered on 05/06/16 14:34; Admin Dose 45 MLS/HR; Start 05/06/16 at 14:30 Octreotide Acetate (Sandostatin) 50 mcg TID SC Last administered on 05/07/16 16:39; Admin Dose 50 MCG; Start 05/06/16 at 21:00 Famotidine (Pepcid) 20 mg BID PO Last administered on 05/07/16 10:24; Admin Dose 20 MG; Start 05/07/16 at 10:00 Enoxaparin Sodium (Lovenox) 40 mg DAILY SC ; Start 05/08/16 at 09:00 LEELA VILLANUEVA MD May 07, 2016 20:49
[2016-05-07 21:00] VITALS: BP 187/79; PULSE 64
[2016-05-07] MEDS: TPN 1,000 ML IV SCH (21:37)
[2016-05-07] MEDS: NACL 0.9% 3 ML SYG IV SCH (21:38)
[2016-05-07] MEDS: hydrALAzine 20 MG INJ IV PRN (21:55)
[2016-05-07 22:00] VITALS: BP 182/76
[2016-05-07] MEDS: morphine 2 MG INJ IV PRN (23:32)
[2016-05-08] VITALS (7 sets, daily range): BP systolic 152–198; BP diastolic 69–89; PULSE 54–58; RESP 20
[2016-05-08] MEDS: ONDANSETRON 4 MG INJ IV PRN (00:09)
[2016-05-08] MEDS: ACETAMINOPHEN/CODEINE #3 TAB PO PRN (02:21)
[2016-05-08] MEDS: hydrALAzine 20 MG INJ IV PRN (04:45)
[2016-05-08] MEDS: ACETAMINOPHEN 325 MG TAB PO PRN (04:53)
[2016-05-08 05:45] LABS: BASOPHILS % 0.3 % (0.0-2.0); EOSINOPHILS # 0.4 10^3/ul (0.0-0.5); EOSINOPHILS % 2.3 % (0.0-7.0); HEMATOCRIT 26.7 % (37.0-47.0); HEMOGLOBIN 9.2 g/dl (12.0-16.0); LYMPHOCYTES % 6.5 % (15.0-51.0); MEAN CORPUSCULAR HEMOGLOBIN 31.3 pg (29.0-33.0); MEAN CORPUSCULAR HGB CONC 34.6 g/dl (32.0-37.0); MEAN CORPUSCULAR VOLUME 90.4 fl (82.0-101.0); MEAN PLATELET VOLUME 9.2 fl (7.4-10.4); MONOCYTE # 0.6 10^3/ul (0.3-0.9); MONOCYTES % 4.2 % (0.0-11.0); NEUTROPHIL # 13.4 10^3/ul (1.6-7.5); NEUTROPHILS % 86.7 % (39.0-77.0); PLATELET COUNT 396 10^3/UL (140-440); RED BLOOD COUNT 2.95 10^6/ul (4.20-5.40); RED CELL DISTRIBUTION WIDTH 15.1 % (11.5-14.5); UNCORRECTED WBC 15.5 10^3/ul (4.8-10.8); WHITE BLOOD COUNT 15.5 10^3/ul (4.8-10.8)
[2016-05-08 05:53] LABS: ALBUMIN 2.8 g/dl (3.3-4.9)
[2016-05-08 05:54] LABS: CONDITION 1; LH ANALYZER COMMENTS 1; POTASSIUM 3.3 mmol/L (3.5-5.1)
[2016-05-08 05:56] LABS: ALBUMIN/GLOBULIN RATIO 0.73; BILIRUBIN,INDIRECT 0.3 mg/dl (0-1.1); BILIRUBIN,TOTAL 0.3 mg/dl (0.2-1.3); CREATININE 1.82 mg/dl (0.44-1.00); TOTAL PROTEIN 6.6 g/dl (6.1-8.1)
[2016-05-08 05:57] LABS: CALCIUM 8.2 mg/dl (8.4-10.2)
[2016-05-08] MEDS: PANTOPRAZOLE (EC) 40 MG TAB PO SCH (06:00)
[2016-05-08] MEDS: PIPER-TAZO 3.375 GM IV (PMX) 100 ML IVPB SCH (06:14)
[2016-05-08] MEDS ORDERED: POTASSIUM CHLORIDE 250 ML IVPB ONE (09:00)
[2016-05-08] MEDS: ACCUCHECK XX SCH ×2 (09:00→21:04)
[2016-05-08] MEDS: FAMOTIDINE 20 MG TAB PO SCH ×2 (09:03→20:50)
[2016-05-08] MEDS: ATENOLOL 50 MG TAB PO SCH (09:05)
[2016-05-08] MEDS: ENOXAPARIN 40 MG/0.4 ML SYG SC SCH (09:06)
[2016-05-08] MEDS: TPN 1,000 ML IV SCH (10:58)
--- NOTE | 2016-05-08 12:47 | PN ---
DATE: 05/08/2016 SUBJECTIVE: The patient is stable, no acute events overnight. No fevers, chills, nausea, vomiting. OBJECTIVE: VITAL SIGNS: Blood pressure is 183/84, respirations 20, pulse 54, temperature 98.0. HEENT: Head is normocephalic. NECK: Supple. HEART: Regular rate. LUNGS: Show diminished breath sounds at base. ABDOMEN: Soft, nontender to palpation. No rebound or guarding. EXTREMITIES: Negative for clubbing, cyanosis, edema. DERMATOLOGIC: No rashes. MUSCULOSKELETAL: No joint effusions. NEUROLOGIC: No change in exam. MEDICATIONS: Reviewed. LABORATORY DATA: Showed sodium 142, potassium 2.3, chloride 106, BUN 31, creatinine 1.82. White co unt 15.5, hemoglobin 9.2, hematocrit 26.7, platelet count is 396. ASSESSMENT AND PLAN: 1. Nonoliguric acute kidney injury with previous baseline creatinine of 0.9 mg/dL. Etiology of acu te kidney injury is secondary to acute tubular necrosis. Renal function has been fluctuating but ov erall improving. At this point, continue current treatment plan, supportive care, renally dose all medications, avoid nephrotoxins. 2. Hypokalemia, replete with potassium chloride 40 mEq IV x1. 3. Anemia. Continue to monitor hemoglobin and hematocrit levels. 4. Mineral bone disorder. Continue to monitor calcium and phosphorus levels. 5. Hypertensive urgency. Continue current blood pressure regimen. Continue to adjust medications. May consider increasing dose of clonidine patch. 6. Metastatic ovarian CA status post debulking surgery. Continue to monitor. 7. Deep venous thrombosis. Continue medical management. 8. There is leukocytosis. The patient is on antibiotic therapy. Cultures have been negative to da te. Continue to monitor. Dictated By: JAHAIRA CAMPOS DO NR/NTS Conf#: [id number] DID#: [id number]
--- NOTE | 2016-05-08 14:40 | CONS ---
Date/Time of Note Date/Time of Note DATE: 05/08/16 TIME: 14:31 Assessment/Plan Assessment/Plan Chief Complaint/Hosp Course ID PROGRESS NOTE TOTAL ABX DAY # 11 => Zosyn #8 s/p Vanco s/p Ancef 24H INTERVAL SUMMARY * Working with PTx OOB-> eager to become more mobile and DC FC * (+)BM 05/06/16 & 05/07/16 * No fevers, WBC stable, TPN via right chest port, supplemental o2 Via NC * J-P drain removed 05/06 PHYSICAL EXAMINATION: GENERAL: 55 yo F HEENT: Unremarkable NECK: Supple, trachea midline. CHEST: Rise symmetrical without dyspnea on supplemental O2 via NC, off O2 to BRP without dyspnea HEART: RRR ABDOMEN: Soft, DSG C/D/I EXTREMITIES: Warm ID ASSESSMENT: 55 yo obese F with: 1. Metastatic ovarian carcinoma status post tumor debulking with hematoma repair bowel resection on 04/29/2016. * J-P drain removed 05/06 * Concern for recurrence SBO ->(+)BM 05/06 (reported to me not recorded by nurse ) & 05/07 Remains on TPN 2. Systemic inflammatory response syndrome with leukocytosis, status post low grade fevers = RESOLVING 3. Acute renal failure. 4. HTN 5. Small left pleural effusion and obscuration of the left hemidiaphragm due to atelectasis, infiltrate, and / or effusion seen on CXR 05/03/15. 6. History of left lower extremity deep venous thrombosis-> (-)DVT on US this admission INVASIVES: *Port-A-Cath, FC CURRENT ABX: TOTAL ABX DAY # 10 => Zosyn #8 s/p Vanco IV ID RECOMMENDATIONS: WBC persisting - concern Zosyn may drive opportunistic yeast + C.Diff Taper to low dose Cipro po (renal failure)+ Flagyl IV DC Elizalde when ambulatory Will repeat UA C&S today check for yeast . . Problems: Consultation Date/Type/Reason Admit Date/Time Apr 26, 2016 at 14:08 Initial Consult Date 04/26/16 Exam/Review of Systems Vital Signs Vitals Vital Signs Date Time Temp Pulse Resp B/P Pulse Ox O2 Delivery O2 Flow Rate FiO2 05/08/16 08:06 98.0 54 20 183/84 96 05/07/16 13:45 Room Air 05/04/16 18:37 2.0 Intake and Output 05/07/16 05/07/16 05/08/16 15:00 23:00 07:00 Intake Total 1445 ml 400 ml Output Total 400 ml 1500 ml 1200 ml Balance -400 ml -55 ml -800 ml Results Result Diagram: 05/08/16 0440 05/08/16 0440 Results 24 hrs Laboratory Tests Test 05/07/16 21:39 05/08/16 04:40 05/08/16 08:37 Bedside Glucose 131 101 Alanine Aminotransferase (ALT/SGPT) 44 Albumin 2.8 L Albumin/Globulin Ratio 0.73 Alkaline Phosphatase 223 H Anion Gap 14 Aspartate Amino Transf (AST/SGOT) 29 Basophils # 0.0 Basophils % 0.3 Blood Morphology Comment Blood Urea Nitrogen 31 H Calcium Level 8.2 L Carbon Dioxide Level 25 Chloride Level 106 Creatinine 1.82 H Direct Bilirubin 0.00 Eosinophils # 0.4 Eosinophils % 2.3 Globulin 3.80 H Glucose Level 110 Hematocrit 26.7 L Hemoglobin 9.2 L Indirect Bilirubin 0.3 Lymphocytes # 1.0 Lymphocytes % 6.5 L Mean Corpuscular Hemoglobin 31.3 Mean Corpuscular Hemoglobin Concent 34.6 Mean Corpuscular Volume 90.4 Mean Platelet Volume 9.2 Monocytes # 0.6 Monocytes % 4.2 Neutrophils # 13.4 H Neutrophils % 86.7 H Nucleated Red Blood Cells # 0.0 Nucleated Red Blood Cells % 0.0 Platelet Count 396 Potassium Level 3.3 L Red Blood Count 2.95 L Red Cell Distribution Width 15.1 H Sodium Level 142 Total Bilirubin 0.3 Total Protein 6.6 White Blood Count 15.5 H Medications Medications Current Medications Ondansetron HCl 4 mg 4 mg Q6H PRN IV NAUSEA AND/OR VOMITING Last administered on 05/08/16 00:09; Admin Dose 4 MG; Start 04/28/16 at 21:00 Piperacillin Sod/ Tazobactam Sod (Zosyn 3.375gm/ 100 ml (Pmx)) 100 ml @ 200 mls /hr Q8 IVPB Last administered on 05/08/16 06:14; Admin Dose 200 MLS/HR; Start 05/01/16 at 12:00 Clonidine (Catapres) 0.1 mg Q6H PRN PO SBP >160 Last administered on 05/06/16 08:27; Admin Dose 0.1 MG; Start 05/01/16 at 10:30 Morphine Sulfate (morphine) 2 mg Q4H PRN IV breakthrough pain Last administered on 05/07/16 23:32; Admin Dose 2 MG; Start 05/01/16 at 12:30 Acetaminophen/ Codeine Phosphate (Tylenol No.3) 1 tab Q6H PRN PO PAIN Last administered on 05/08/16 02:21; Admin Dose 1 TAB; Start 05/01/16 at 12:30 Diagnostic Test (Pha) (Accucheck) 1 ea Q12 XX Last administered on 05/06/16 21 :00; Admin Dose 1 EA; Start 05/04/16 at 21:00 Clonidine HCl (Catapres-Tts 1 Patch) 1 patch Q7D TRANSDERM Last administered on 05/04/16 13:38; Admin Dose 1 PATCH; Start 05/04/16 at 12:00 Pantoprazole (Protonix Tab) 40 mg DAILY@06 PO Last administered on 05/07/16 05 :50; Admin Dose 40 MG; Start 05/05/16 at 16:00 Atenolol (Tenormin) 75 mg DAILY PO Last administered on 05/08/16 09:05; Admin Dose 75 MG; Start 05/07/16 at 09:00 Hydralazine HCl (Apresoline) 25 mg Q8 PO Last administered on 05/07/16 21:44; Admin Dose 25 MG; Start 05/06/16 at 14:00 Hydralazine HCl 10 mg 10 mg Q6H PRN IV sbp>160mmhg Last administered on 04:45; Admin Dose 10 MG; Start 05/06/16 at 10:00 Total Parenteral Nutrition (Tpn) 1,000 ml @ 45 mls/hr [id number] IV Last administered on 05/07/16 21:37; Admin Dose 45 MLS/HR; Start 05/06/16 at 14:30 Famotidine (Pepcid) 20 mg BID PO Last administered on 05/08/16 09:03; Admin Dose 20 MG; Start 05/07/16 at 10:00 Enoxaparin Sodium (Lovenox) 40 mg DAILY SC Last administered on 05/08/16 09:06 ; Admin Dose 40 MG; Start 05/08/16 at 09:00 Clonidine (Catapres) 0.1 mg Q6H PO Last administered on 05/08/16 12:38; Admin Dose 0.1 MG; Start 05/08/16 at 05:00 Acetaminophen (Tylenol Tab) 650 mg Q6H PRN PO PAIN AND OR ELEVATED TEMP Last administered on 05/08/16 04:53; Admin Dose 650 MG; Start 05/08/16 at 04:45 GEETA GONZALEZ NP May 08, 2016 14:40
[2016-05-08] MEDS: metroNIDAZOLE 500 MG/NS (PMX) 100 ML IVPB SCH ×2 (15:22→21:46)
--- NOTE | 2016-05-08 16:26 | PN ---
Date/Time of Note Date/Time of Note DATE: 05/08/16 TIME: 16:20 Assessment/Plan VTE Prophylaxis VTE Prophylaxis Intervention: LMWH Lines/Catheters IV Catheter Type (from [facility]): port a cath Urinary Cath still in place: Yes Assessment/Plan Chief Complaint/Hosp Course A/P 1. Bowel Obstruction, stable. Sp Sigmoid colon resection/ anastamosis; Bilat ureteral dissection w repositioning/ureterolysis. Residual Omentectomy w splenectomy/distal pancreatectomy. Celiac node debulking, Rp debulking, Cytoreduction, v hernia repair, & Enterolysis. 2. Metastatic ovarian malignancy. 3. Anemia 4. Acute renal failure/ATN improved 5. Ho lower ext DVT 6. SIRS 7. Leukocytosis, ro line infection; DC Elizalde. Taper off TPN 8. Hypertension 9. Left pleural effusion 10. Ureteral stricture Problems: Subjective 24 Hr Interval Summary Free Text/Dictation Hospitalist coverage: Events noted. No vomiting. Will taper TPN. No fever noted. leukocytosis noted. Exam/Review of Systems Vital Signs Vitals Vital Signs Date Time Temp Pulse Resp B/P Pulse Ox O2 Delivery O2 Flow Rate FiO2 05/08/16 08:06 98.0 54 20 183/84 96 05/07/16 13:45 Room Air 05/04/16 18:37 2.0 Intake and Output 05/07/16 05/07/16 05/08/16 15:00 23:00 07:00 Intake Total 1445 ml 400 ml Output Total 400 ml 1500 ml 1200 ml Balance -400 ml -55 ml -800 ml Exam Respiratory: clear to auscultation Cardiovascular: regular rate and rhythm Gastrointestinal: soft (mild tender nondistended, no R R G) Extremities: other (no edema) Results Result Diagram: 05/08/1643905/08/16 0440 Results 24 hrs Laboratory Tests Test 05/07/16 21:39 05/08/16 04:40 05/08/16 08:37 Bedside Glucose 131 101 Alanine Aminotransferase (ALT/SGPT) 44 Albumin 2.8 L Albumin/Globulin Ratio 0.73 Alkaline Phosphatase 223 H Anion Gap 14 Aspartate Amino Transf (AST/SGOT) 29 Basophils # 0.0 Basophils % 0.3 Blood Morphology Comment Blood Urea Nitrogen 31 H Calcium Level 8.2 L Carbon Dioxide Level 25 Chloride Level 106 Creatinine 1.82 H Direct Bilirubin 0.00 Eosinophils # 0.4 Eosinophils % 2.3 Globulin 3.80 H Glucose Level 110 Hematocrit 26.7 L Hemoglobin 9.2 L Indirect Bilirubin 0.3 Lymphocytes # 1.0 Lymphocytes % 6.5 L Mean Corpuscular Hemoglobin 31.3 Mean Corpuscular Hemoglobin Concent 34.6 Mean Corpuscular Volume 90.4 Mean Platelet Volume 9.2 Monocytes # 0.6 Monocytes % 4.2 Neutrophils # 13.4 H Neutrophils % 86.7 H Nucleated Red Blood Cells # 0.0 Nucleated Red Blood Cells % 0.0 Platelet Count 396 Potassium Level 3.3 L Red Blood Count 2.95 L Red Cell Distribution Width 15.1 H Sodium Level 142 Total Bilirubin 0.3 Total Protein 6.6 White Blood Count 15.5 H Medications Medications Current Medications Ondansetron HCl (Zofran Inj) 4 mg Q6H PRN IV NAUSEA AND/OR VOMITING Last administered on 05/08/16 00:09; Admin Dose 4 MG; Start 04/28/16 at 21:00 Clonidine (Catapres) 0.1 mg Q6H PRN PO SBP >160 Last administered on 05/06/16 08:27; Admin Dose 0.1 MG; Start 05/01/16 at 10:30 Morphine Sulfate (morphine) 2 mg Q4H PRN IV breakthrough pain Last administered on 05/07/16 23:32; Admin Dose 2 MG; Start 05/01/16 at 12:30 Acetaminophen/ Codeine Phosphate (Tylenol No.3) 1 tab Q6H PRN PO PAIN Last administered on 05/08/16 02:21; Admin Dose 1 TAB; Start 05/01/16 at 12:30 Diagnostic Test (Pha) (Accucheck) 1 ea Q12 XX Last administered on 05/06/16 21 :00; Admin Dose 1 EA; Start 05/04/16 at 21:00 Clonidine HCl (Catapres-Tts 1 Patch) 1 patch Q7D TRANSDERM Last administered on 05/04/16 13:38; Admin Dose 1 PATCH; Start 05/04/16 at 12:00 Pantoprazole (Protonix Tab) 40 mg DAILY@06 PO Last administered on 05/07/16 05 :50; Admin Dose 40 MG; Start 05/05/16 at 16:00 Atenolol (Tenormin) 75 mg DAILY PO Last administered on 05/08/16 09:05; Admin Dose 75 MG; Start 05/07/16 at 09:00 Hydralazine HCl (Apresoline) 25 mg Q8 PO Last administered on 05/07/16 21:44; Admin Dose 25 MG; Start 05/06/16 at 14:00 Hydralazine HCl 10 mg 10 mg Q6H PRN IV sbp>160mmhg Last administered on 04:45; Admin Dose 10 MG; Start 05/06/16 at 10:00 Total Parenteral Nutrition (Tpn) 1,000 ml @ 45 mls/hr [id number] IV Last administered on 05/07/16 21:37; Admin Dose 45 MLS/HR; Start 05/06/16 at 14:30 Famotidine (Pepcid) 20 mg BID PO Last administered on 05/08/16 09:03; Admin Dose 20 MG; Start 05/07/16 at 10:00 Enoxaparin Sodium (Lovenox) 40 mg DAILY SC Last administered on 05/08/16 09:06 ; Admin Dose 40 MG; Start 05/08/16 at 09:00 Clonidine (Catapres) 0.1 mg Q6H PO Last administered on 05/08/16 12:38; Admin Dose 0.1 MG; Start 05/08/16 at 05:00 Acetaminophen 650 mg 650 mg Q6H PRN PO PAIN AND OR ELEVATED TEMP Last administered on 05/08/16 04:53; Admin Dose 650 MG; Start 05/08/16 at 04:45 Metronidazole (Flagyl 500 Mg (Pmx)) 100 ml @ 100 mls/hr Q8 IVPB Last administered on 05/08/16 15:22; Admin Dose 100 MLS/HR; Start 05/08/16 at 15:00 Ciprofloxacin (Cipro) 250 mg BID@06,18 NGT ; Start 05/08/16 at 18:00 LUIS ENRIQUE SAEZ MD May 08, 2016 16:26
[2016-05-08] MEDS ORDERED: POTASSIUM CHLORIDE 20 MEQ POWDER FOR ORAL SOLN PO ONE (17:30)
[2016-05-08] MEDS: CIPROFLOXACIN 250 MG TAB NGT SCH (17:31)
[2016-05-08 22:07] LABS: ADD UMIC YES; URINE BILIRUBIN (Dip) NEGATIVE (NEGATIVE); URINE BLOOD (Dip) TRACE (NEGATIVE); URINE COLOR LT. YELLOW (YELLOW); URINE GLUCOSE (Dip) NEGATIVE (NEGATIVE); URINE KETONES (Dip) NEGATIVE (NEGATIVE); URINE LEUKOCYTE ESTERASE (Dip) NEGATIVE (NEGATIVE); URINE NITRITE (Dip) NEGATIVE (NEGATIVE); URINE TOTAL PROTEIN (Dip) NEGATIVE (NEGATIVE); URINE UROBILINOGEN (Dip) 0.2 E.U./dL (0.1-1.0)
[2016-05-08 22:24] LABS: URINE RBCS 0-2 /HPF (0)
[2016-05-08 22:25] LABS: BACTERIA,URINE OCCASIONAL; SQUAMOUS EPITHELIAL CELL,UR RARE
[2016-05-09] VITALS (8 sets, daily range): BP systolic 140–187; BP diastolic 69–84; PULSE 56–64; RESP 18–20
[2016-05-09 05:59] LABS: ALBUMIN 2.6 g/dl (3.3-4.9)
[2016-05-09] MEDS: CIPROFLOXACIN 250 MG TAB NGT SCH (05:59)
[2016-05-09] MEDS: metroNIDAZOLE 500 MG/NS (PMX) 100 ML IVPB SCH (05:59)
[2016-05-09 06:00] LABS: POTASSIUM 3.2 mmol/L (3.5-5.1)
[2016-05-09 06:08] LABS: CREATININE 1.53 mg/dl (0.44-1.00)
[2016-05-09 06:09] LABS: ALBUMIN/GLOBULIN RATIO 0.66; BILIRUBIN,INDIRECT 0.3 mg/dl (0-1.1); BILIRUBIN,TOTAL 0.3 mg/dl (0.2-1.3); TOTAL PROTEIN 6.5 g/dl (6.1-8.1)
[2016-05-09 06:10] LABS: CALCIUM 7.9 mg/dl (8.4-10.2)
[2016-05-09 06:22] LABS: BASOPHILS % 0.2 % (0.0-2.0); EOSINOPHILS # 0.4 10^3/ul (0.0-0.5); EOSINOPHILS % 2.5 % (0.0-7.0); HEMATOCRIT 25.6 % (37.0-47.0); HEMOGLOBIN 8.6 g/dl (12.0-16.0); LYMPHOCYTES # 1.2 10^3/ul (0.8-2.9); LYMPHOCYTES % 7.7 % (15.0-51.0); MEAN CORPUSCULAR HEMOGLOBIN 30.9 pg (29.0-33.0); MEAN CORPUSCULAR HGB CONC 33.6 g/dl (32.0-37.0); MEAN CORPUSCULAR VOLUME 91.8 fl (82.0-101.0); MEAN PLATELET VOLUME 9.6 fl (7.4-10.4); MONOCYTE # 0.9 10^3/ul (0.3-0.9); MONOCYTES % 5.4 % (0.0-11.0); NEUTROPHIL # 13.3 10^3/ul (1.6-7.5); NEUTROPHILS % 84.2 % (39.0-77.0); PLATELET COUNT 396 10^3/UL (140-440); RED BLOOD COUNT 2.79 10^6/ul (4.20-5.40); RED CELL DISTRIBUTION WIDTH 15.7 % (11.5-14.5); UNCORRECTED WBC 15.8 10^3/ul (4.8-10.8); WHITE BLOOD COUNT 15.8 10^3/ul (4.8-10.8)
[2016-05-09 06:38] LABS: CONDITION 1; LH ANALYZER COMMENTS 1
[2016-05-09 08:00] LABS: MAGNESIUM 1.3 mg/dl (1.7-2.5); PHOSPHORUS 4.2 mg/dl (2.5-4.9)
[2016-05-09] MEDS ORDERED: NIFEdipine (XL) 30 MG TAB PO SCH (09:00)
[2016-05-09] MEDS ORDERED: POTASSIUM CHLORIDE (SR) 20 MEQ TAB PO SCH (09:00)
[2016-05-09] MEDS: FAMOTIDINE 20 MG TAB PO SCH ×2 (09:05→20:41)
[2016-05-09] MEDS: LACTOBACILLUS RHAMNOSUS CAP PO SCH ×2 (09:06→20:41)
[2016-05-09] MEDS: ATENOLOL 50 MG TAB PO SCH (09:06)
[2016-05-09] MEDS: ACCUCHECK XX SCH (09:15)
[2016-05-09] MEDS: ENOXAPARIN 40 MG/0.4 ML SYG SC SCH (09:15)
[2016-05-09] MEDS ORDERED: POTASSIUM CHLORIDE 250 ML IVPB ONE (09:15)
[2016-05-09] MEDS ORDERED: MAGNESIUM SULFATE 2 GM/50 ML 50 ML IVPB ONE (09:30)
--- NOTE | 2016-05-09 09:47 | PN ---
DATE: 05/09/2016 SUBJECTIVE: The patient is stable, no acute events overnight. No fevers, chills, nausea, vomiting. OBJECTIVE: VITAL SIGNS: Blood pressure 140/69, respiration 18, pulse 55, temperature 98.0. HEENT: Head is normocephalic. NECK: Supple. HEART: Regular rate. LUNGS: Show diminished breath sounds at base. ABDOMEN: Soft. Positive laparotomy scar. EXTREMITIES: Negative for clubbing, cyanosis, edema. DERMATOLOGIC: No rashes. MUSCULOSKELETAL: No joint effusions. NEUROLOGIC: No focal deficits. MEDICATIONS: Reviewed. LABORATORY DATA: Sodium 143, potassium 3.2, BUN 25, creatinine 1.53, magnesium 1.3, calcium 7.9. W marbella count 15.8, hemoglobin 8.6, hematocrit 25.6, platelet count 296. ASSESSMENT AND PLAN: 1. Nonoliguric acute kidney injury with previous baseline creatinine of 0.9 mg/dL. Etiology of acu te kidney injury is secondary to acute tubular necrosis. Renal function slowly improving. Continue supportive care, renally dose medications, avoid nephrotoxins. 2. Hypokalemia and hypomagnesemia. We will replete potassium chloride, magnesium sulfate. 3. Anemia. Continue to monitor hemoglobin and hematocrit levels. 4. Mineral bone disorder. Will monitor calcium and phosphorus levels. 5. Hypertensive urgency. Continue current blood pressure regimen. Adjust medications. 6. Metastatic ovarian carcinoma, status post debulking surgery. Continue to monitor. Follow up [facility]/Onc. 7. Leukocytosis. Etiology may be reactive. The patient is on antibiotic therapy empirically. Con tinue to monitor. Dictated By: JAHAIRA FELICIANO/COLTON Conf#: [id number] DID#: [id number]
--- NOTE | 2016-05-09 12:08 | PN ---
DATE: 05/09/2016 SUBJECTIVE: No changes overnight. No fevers. The patient is alert, feels good, looks comfortable. Denies pain, discomfort. Tolerates p.o. WBC today 15.8, neutrophils 84.2, BUN 25, creatinine 1.53. ANTIMICROBIALS: The patient is on Cipro and Flagyl. PHYSICAL EXAMINATION: GENERAL: This is a morbidly obese, middle-aged woman who is alert, in no distress. HEENT: Head atraumatic, normocephalic. Sclerae anicteric. Buccal mucosa pink. NECK: Supple. CHEST: Rise symmetrical. Breath sounds diminished to bases. HEART: S1, S2. ABDOMEN: Soft, bowel tones present. EXTREMITIES: Without cyanosis. ASSESSMENT: 1. Systemic inflammatory response syndrome with persistent leukocytosis, no evidence of active infe ctious process. 2. Acute renal failure. 3. Obesity. 4. Metastatic ovarian carcinoma, status post tumor debulking on 04/29/2016. PLAN: The patient is doing better. She is being seen by multiple consultants. Plan to advance her diet. Discontinue TPN simvastatin tomorrow. We are going to discontinue antibiotics and observe h er. Dictated By: EREN DANIELS WILDLIFE OFFICER for [employer] NICE/NTS Conf#: [id number] DID#: [id number]
--- NOTE | 2016-05-09 13:53 | PN ---
Date/Time of Note Date/Time of Note DATE: 05/09/16 TIME: 13:51 Assessment/Plan VTE Prophylaxis VTE Prophylaxis Intervention: LMWH Lines/Catheters IV [facility]from [facility] PORT A CATH Urinary Cath still in place: Yes Assessment/Plan Chief Complaint/Hosp Course Ovarian cancer with hernia and possible SBO and recurrence. Problems: Assessment/Plan A- doing adequately P- Will adv diet more a.m. and d/c Elizalde tomorrow.Will consider premedication tomorrow and chemo Subjective 24 Hr Interval Summary Free Text/Dictation S- Feels better overall with less pain and OOB more. + BM . O Resp- clear CVS- NSR Abd- soft, appropriate tenderness, clean with KORIN output Ext- NT no edema A- doing adequately P- Will adv diet more a.m. and d/c Elizalde tomorrow.Will consider premedication tomorrow and chemo Exam/Review of Systems Vital Signs Vitals Vital Signs Date Time Temp Pulse Resp B/P Pulse Ox O2 Delivery O2 Flow Rate FiO2 05/09/16 07:59 98.0 55 18 140/69 97 05/07/16 13:45 Room Air Intake and Output 05/08/16 05/08/16 05/09/16 15:00 23:00 07:00 Intake Total 250 ml 1110 ml 700 ml Output Total 1100 ml 1400 ml Balance 250 ml 10 ml -700 ml Results Result Diagram: 05/09/16 0441 05/09/16 0441 Results 24 hrs Laboratory Tests Test 05/08/16 17:05 05/08/16 20:52 05/09/16 04:41 05/09/16 08:45 Urine Bacteria OCCASIONAL Urine Bilirubin NEGATIVE Urine Clarity CLEAR Urine Color LT. YELLOW Urine Glucose NEGATIVE Urine Hemoglobin TRACE Urine Ketones NEGATIVE Urine Leukocyte Esterase NEGATIVE Urine Microscopic RBC 0-2 Urine Microscopic WBC 0-2 Urine Nitrite NEGATIVE Urine Specific [place] 1.010 Urine Squamous Epithelial Cells RARE Urine Total Protein NEGATIVE Urine Urobilinogen 0.2 E.U./dL Urine pH 6.0 Bedside Glucose 96 Alanine Aminotransferase (ALT/SGPT) 44 Albumin 2.6 L Albumin/Globulin Ratio 0.66 Alkaline Phosphatase 182 H Anion Gap 15 Aspartate Amino Transf (AST/SGOT) 26 Basophils # 0.0 Basophils % 0.2 Blood Morphology Comment Blood Urea Nitrogen 25 H Calcium Level 7.9 L Carbon Dioxide Level 24 Chloride Level 107 Creatinine 1.53 H Direct Bilirubin 0.00 Eosinophils # 0.4 Eosinophils % 2.5 Globulin 3.90 H Glucose Level 82 Hematocrit 25.6 L Hemoglobin 8.6 L Indirect Bilirubin 0.3 Lymphocytes # 1.2 Lymphocytes % 7.7 L Magnesium Level 1.3 L Mean Corpuscular Hemoglobin 30.9 Mean Corpuscular Hemoglobin Concent 33.6 Mean Corpuscular Volume 91.8 Mean Platelet Volume 9.6 Monocytes # 0.9 Monocytes % 5.4 Neutrophils # 13.3 H Neutrophils % 84.2 H Nucleated Red Blood Cells # 0.0 Nucleated Red Blood Cells % 0.0 Phosphorus Level 4.2 Platelet Count 396 Potassium Level 3.2 L Red Blood Count 2.79 L Red Cell Distribution Width 15.7 H Sodium Level 143 Thyroid Stimulating Hormone (TSH) 5.750 H Total Bilirubin 0.3 Total Protein 6.5 White Blood Count 15.8 H Lab Scanned Report REFERENCE LAB Test 05/09/16 08:53 Bedside Glucose 90 Medications Medications Current Medications Ondansetron HCl (Zofran Inj) 4 mg Q6H PRN IV NAUSEA AND/OR VOMITING Last administered on 05/08/16 00:09; Admin Dose 4 MG; Start 04/28/16 at 21:00 Clonidine (Catapres) 0.1 mg Q6H PRN PO SBP >160 Last administered on 05/06/16 08:27; Admin Dose 0.1 MG; Start 05/01/16 at 10:30 Morphine Sulfate (morphine) 2 mg Q4H PRN IV breakthrough pain Last administered on 05/07/16 23:32; Admin Dose 2 MG; Start 05/01/16 at 12:30 Acetaminophen/ Codeine Phosphate (Tylenol No.3) 1 tab Q6H PRN PO PAIN Last administered on 05/08/16 02:21; Admin Dose 1 TAB; Start 05/01/16 at 12:30 Diagnostic Test (Pha) (Accucheck) 1 ea Q12 XX Last administered on 05/09/16 09 :15; Admin Dose 1 EA; Start 05/04/16 at 21:00 Clonidine HCl (Catapres-Tts 1 Patch) 1 patch Q7D TRANSDERM Last administered on 05/04/16 13:38; Admin Dose 1 PATCH; Start 05/04/16 at 12:00 Hydralazine HCl (Apresoline) 10 mg Q6H PRN IV sbp>160mmhg Last administered on 05/08/16 04:45; Admin Dose 10 MG; Start 05/06/16 at 10:00 Famotidine (Pepcid) 20 mg BID PO Last administered on 05/09/16 09:05; Admin Dose 20 MG; Start 05/07/16 at 10:00 Enoxaparin Sodium (Lovenox) 40 mg DAILY SC Last administered on 05/09/16 09:15 ; Admin Dose 40 MG; Start 05/08/16 at 09:00 Clonidine (Catapres) 0.1 mg Q6H PO Last administered on 05/09/16 11:03; Admin Dose 0.1 MG; Start 05/08/16 at 05:00 Acetaminophen (Tylenol Tab) 650 mg Q6H PRN PO PAIN AND OR ELEVATED TEMP Last administered on 05/08/16 04:53; Admin Dose 650 MG; Start 05/08/16 at 04:45 Atenolol (Tenormin) 50 mg DAILY PO Last administered on 05/09/16 09:06; Admin Dose 50 MG; Start 05/09/16 at 09:00 Lactobacillus Acidophilus/ Rhamnosus (Culturelle) 1 cap BID PO Last administered on 05/09/16 09:06; Admin Dose 1 CAP; Start 05/09/16 at 09:00 Nifedipine (Procardia Xl) 30 mg DAILY PO Last administered on 05/09/16 09:06; Admin Dose 30 MG; Start 05/09/16 at 09:00 Senna/Docusate Sodium (Senokot-S) 2 tab HS PO ; Start 05/09/16 at 21:00 Potassium Chloride (Klor-Con 20) 40 meq ONCE PO Last administered on 05/09/16 09:06; Admin Dose 40 MEQ; Start 05/09/16 at 09:00; Stop 05/09/16 at 23:33 Hydralazine HCl (Apresoline) 75 mg Q8 PO Last administered on 05/09/16 06:00; Admin Dose 75 MG; Start 05/08/16 at 20:30 LEELA VILLANUEVA MD May 09, 2016 13:53
--- NOTE | 2016-05-09 15:38 | PN ---
Date/Time of Note Date/Time of Note DATE: 05/09/16 TIME: 15:35 Assessment/Plan VTE Prophylaxis VTE Prophylaxis Intervention: LMWH Lines/Catheters IV C[facility] Type (from [facility] PORT A CATH Urinary Cath still in place: Yes Reason Cath still needed: urinary retention, skin wounds contaminated by urine Assessment/Plan Chief Complaint/Hosp Course A/P 1. Bowel Obstruction, stable. Sp Sigmoid colon resect/ anast; Bilat ureteral dissec w reposit/ureterolysis. Residual Omentectomy w splenectomy/dis pancreatectomy. Celiac node debulking, RP debulking, Cytoreduction, v hernia repair, & Enterolysis. Advancing diet. 2. Metastatic ovarian malignancy. Chemo this week? 3. Anemia 4. Acute renal failure/ATN improved 5. Ho lower ext DVT 6. SIRS 7. Leukocytosis, ro line infection; DC Elizalde. Taper off TPN 8. Hypertension 9. Left pleural effusion 10. 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 Subclinical hypothyroidism Problems: Subjective 24 Hr Interval Summary Free Text/Dictation HOSPITALIST COVERAGE: -no events. no fever. Exam/Review of Systems Vital Signs Vitals Vital Signs Date Time Temp Pulse Resp B/P Pulse Ox O2 Delivery O2 Flow Rate FiO2 05/09/16 14:14 140/70 05/09/16 07:59 98.0 55 18 97 05/07/16 13:45 Room Air Intake and Output 05/08/16 05/08/16 05/09/16 15:00 23:00 07:00 Intake Total 250 ml 1110 ml 700 ml Output Total 1100 ml 1400 ml Balance 250 ml 10 ml -700 ml Exam Constitutional: alert Respiratory: clear to auscultation, diminished breath sounds Cardiovascular: regular rate and rhythm Gastrointestinal: soft (mild tender; no r r g) Extremities: other (no edema) Results Result Diagram: 05/09/16 0441 05/09/16 0441 Results 24 hrs Laboratory Tests Test 05/08/16 17:05 05/08/16 20:52 05/09/16 04:41 05/09/16 08:45 Urine Bacteria OCCASIONAL Urine Bilirubin NEGATIVE Urine Clarity CLEAR Urine Color LT. YELLOW Urine Glucose NEGATIVE Urine Hemoglobin TRACE Urine Ketones NEGATIVE Urine Leukocyte Esterase NEGATIVE Urine Microscopic RBC 0-2 Urine Microscopic WBC 0-2 Urine Nitrite NEGATIVE Urine Specific [place] 1.010 Urine Squamous Epithelial Cells RARE Urine Total Protein NEGATIVE Urine Urobilinogen 0.2 E.U./dL Urine pH 6.0 Bedside Glucose 96 Alanine Aminotransferase (ALT/SGPT) 44 Albumin 2.6 L Albumin/Globulin Ratio 0.66 Alkaline Phosphatase 182 H Anion Gap 15 Aspartate Amino Transf (AST/SGOT) 26 Basophils # 0.0 Basophils % 0.2 Blood Morphology Comment Blood Urea Nitrogen 25 H Calcium Level 7.9 L Carbon Dioxide Level 24 Chloride Level 107 Creatinine 1.53 H Direct Bilirubin 0.00 Eosinophils # 0.4 Eosinophils % 2.5 Globulin 3.90 H Glucose Level 82 Hematocrit 25.6 L Hemoglobin 8.6 L Indirect Bilirubin 0.3 Lymphocytes # 1.2 Lymphocytes % 7.7 L Magnesium Level 1.3 L Mean Corpuscular Hemoglobin 30.9 Mean Corpuscular Hemoglobin Concent 33.6 Mean Corpuscular Volume 91.8 Mean Platelet Volume 9.6 Monocytes # 0.9 Monocytes % 5.4 Neutrophils # 13.3 H Neutrophils % 84.2 H Nucleated Red Blood Cells # 0.0 Nucleated Red Blood Cells % 0.0 Phosphorus Level 4.2 Platelet Count 396 Potassium Level 3.2 L Red Blood Count 2.79 L Red Cell Distribution Width 15.7 H Sodium Level 143 Thyroid Stimulating Hormone (TSH) 5.750 H Total Bilirubin 0.3 Total Protein 6.5 White Blood Count 15.8 H Lab Scanned Report REFERENCE LAB Test 05/09/16 08:53 Bedside Glucose 90 Medications Medications Current Medications Ondansetron HCl (Zofran Inj) 4 mg Q6H PRN IV NAUSEA AND/OR VOMITING Last administered on 05/08/16 00:09; Admin Dose 4 MG; Start 04/28/16 at 21:00 Clonidine (Catapres) 0.1 mg Q6H PRN PO SBP >160 Last administered on 05/06/16 08:27; Admin Dose 0.1 MG; Start 05/01/16 at 10:30 Morphine Sulfate (morphine) 2 mg Q4H PRN IV breakthrough pain Last administered on 05/07/16 23:32; Admin Dose 2 MG; Start 05/01/16 at 12:30 Acetaminophen/ Codeine Phosphate (Tylenol No.3) 1 tab Q6H PRN PO PAIN Last administered on 05/08/16 02:21; Admin Dose 1 TAB; Start 05/01/16 at 12:30 Diagnostic Test (Pha) (Accucheck) 1 ea Q12 XX Last administered on 05/09/16 09 :15; Admin Dose 1 EA; Start 05/04/16 at 21:00 Clonidine HCl (Catapres-Tts 1 Patch) 1 patch Q7D TRANSDERM Last administered on 05/04/16 13:38; Admin Dose 1 PATCH; Start 05/04/16 at 12:00 Hydralazine HCl (Apresoline) 10 mg Q6H PRN IV sbp>160mmhg Last administered on 05/08/16 04:45; Admin Dose 10 MG; Start 05/06/16 at 10:00 Famotidine (Pepcid) 20 mg BID PO Last administered on 05/09/16 09:05; Admin Dose 20 MG; Start 05/07/16 at 10:00 Enoxaparin Sodium (Lovenox) 40 mg DAILY SC Last administered on 05/09/16 09:15 ; Admin Dose 40 MG; Start 05/08/16 at 09:00 Clonidine (Catapres) 0.1 mg Q6H PO Last administered on 05/09/16 11:03; Admin Dose 0.1 MG; Start 05/08/16 at 05:00 Acetaminophen (Tylenol Tab) 650 mg Q6H PRN PO PAIN AND OR ELEVATED TEMP Last administered on 05/08/16 04:53; Admin Dose 650 MG; Start 05/08/16 at 04:45 Atenolol (Tenormin) 50 mg DAILY PO Last administered on 05/09/16 09:06; Admin Dose 50 MG; Start 05/09/16 at 09:00 Lactobacillus Acidophilus/ Rhamnosus (Culturelle) 1 cap BID PO Last administered on 05/09/16 09:06; Admin Dose 1 CAP; Start 05/09/16 at 09:00 Nifedipine (Procardia Xl) 30 mg DAILY PO Last administered on 05/09/16 09:06; Admin Dose 30 MG; Start 05/09/16 at 09:00 Senna/Docusate Sodium (Senokot-S) 2 tab HS PO ; Start 05/09/16 at 21:00 Potassium Chloride (Klor-Con 20) 40 meq ONCE PO Last administered on 05/09/16 09:06; Admin Dose 40 MEQ; Start 05/09/16 at 09:00; Stop 05/09/16 at 23:33 Hydralazine HCl (Apresoline) 75 mg Q8 PO Last administered on 05/09/16t 14:13; Admin Dose 75 MG; Start 05/08/16 at 20:30 LUIS ENRIQUE SAEZ MD May 09, 2016 15:38
[2016-05-09] MEDS: SENNA/DOCUSATE NA (8.6MG/50MG) TAB PO SCH (20:42)
[2016-05-10] MEDS: ACETAMINOPHEN 325 MG TAB PO PRN ×3 (04:36→23:44)
[2016-05-10 05:24] LABS: BASOPHILS % 0.1 % (0.0-2.0); EOSINOPHILS # 0.2 10^3/ul (0.0-0.5); EOSINOPHILS % 1.8 % (0.0-7.0); HEMATOCRIT 25.7 % (37.0-47.0); HEMOGLOBIN 8.6 g/dl (12.0-16.0); LYMPHOCYTES % 7.4 % (15.0-51.0); MEAN CORPUSCULAR HEMOGLOBIN 30.7 pg (29.0-33.0); MEAN CORPUSCULAR HGB CONC 33.4 g/dl (32.0-37.0); MEAN CORPUSCULAR VOLUME 91.9 fl (82.0-101.0); MEAN PLATELET VOLUME 9.6 fl (7.4-10.4); MONOCYTE # 0.8 10^3/ul (0.3-0.9); MONOCYTES % 5.9 % (0.0-11.0); NEUTROPHILS % 84.8 % (39.0-77.0); PLATELET COUNT 417 10^3/UL (140-440); RED CELL DISTRIBUTION WIDTH 15.8 % (11.5-14.5); UNCORRECTED WBC 14.1 10^3/ul (4.8-10.8); WHITE BLOOD COUNT 14.1 10^3/ul (4.8-10.8)
[2016-05-10 05:42] VITALS: BP 158/71; PULSE 69
[2016-05-10 05:55] LABS: CONDITION 1; LH ANALYZER COMMENTS 1
[2016-05-10 06:16] LABS: CREATININE 1.44 mg/dl (0.44-1.00); MAGNESIUM 1.6 mg/dl (1.7-2.5); PHOSPHORUS 3.8 mg/dl (2.5-4.9); POTASSIUM 3.4 mmol/L (3.5-5.1)
[2016-05-10 07:00] VITALS: BP 139/66; RESP 18
[2016-05-10] MEDS ORDERED: POTASSIUM CHLORIDE (SR) 20 MEQ TAB PO STA (08:24)
[2016-05-10] MEDS: FAMOTIDINE 20 MG TAB PO SCH ×2 (08:33→20:56)
[2016-05-10] MEDS: LACTOBACILLUS RHAMNOSUS CAP PO SCH ×2 (08:33→20:56)
[2016-05-10] MEDS: NIFEdipine (XL) 60 MG TAB PO SCH (08:34)
[2016-05-10] MEDS: ATENOLOL 50 MG TAB PO SCH (08:34)
[2016-05-10] MEDS: ENOXAPARIN 40 MG/0.4 ML SYG SC SCH (08:47)
[2016-05-10] MEDS ORDERED: MAGNESIUM SULFATE 2 GM/50 ML 50 ML IVPB ONE (09:00)
--- NOTE | 2016-05-10 10:45 | PN ---
DATE: 05/10/2016 SUBJECTIVE: The patient is stable, no acute events overnight. No fevers, chills, nausea, or vomiti ng. No shortness of breath. OBJECTIVE: VITAL SIGNS: Blood pressure is 139/66, respiration 18, pulse 62, temperature 99.2. HEENT: Head is normocephalic. NECK: Supple. HEART: Regular rate. LUNGS: Show diminished breath sounds at base. ABDOMEN: Soft, nontender to palpation. No rebound or guarding. EXTREMITIES: Positive laparotomy scar, well healing. DERMATOLOGIC: No rashes. MUSCULOSKELETAL: No joint effusions. NEUROLOGIC: No change in exam. MEDICATIONS: Reviewed. LABORATORY DATA: Shows sodium 142, potassium chloride 107, BUN 18, creatinine 1.44, magnesium 1.6. White count 14.1, hemoglobin 8.6, hematocrit 25.7, platelet count is 417. ASSESSMENT AND PLAN: 1. Nonoliguric acute kidney injury with previous baseline creatinine of 0.9 mg/dL. Etiology of acu te kidney injury is secondary to acute tubular necrosis. Renal function is improving. Continue sup portive care, renally dose all meds, avoid nephrotoxins. 2. Hypokalemia and hypomagnesemia. We will continue to monitor and replete. 3. Anemia. Continue to monitor hemoglobin and hematocrit levels. 4. Mineral bone disorder. Monitor calcium and phosphorus levels. 5. Hypertensive urgency, improving. Continue current blood pressure regimen. 6. Metastatic ovarian carcinoma, status debulking surgery. Continue to monitor. 7. Leukocytosis, possibly reactive. Continue to observe. Dictated By: JAHAIRA FELICIANO/COLTON Conf#: [id number] DID#: [id number]
--- NOTE | 2016-05-10 13:13 | CONS ---
Date/Time of Note Date/Time of Note DATE: 05/10/16 TIME: 13:08 Consult Date/Type/Reason Admit Date/Time Apr 26, 2016 at 14:08 Initial Consult Date 04/26/16 Reason for Consultation id Subjective alert, up in a chair, Elizalde dc'd in am, voiding without difficulty, no n/v/d, s/ p dizziness, nad Objective Vital Signs Date Time Temp Pulse Resp B/P Pulse Ox O2 Delivery O2 Flow Rate FiO2 05/10/16 08:47 98.9 05/10/16 07:00 62 18 139/66 95 05/07/16 13:45 Room Air Intake and Output 05/09/16 05/09/16 05/10/16 15:00 23:00 07:00 Intake Total 50 ml 1110 ml 500 ml Output Total 1400 ml 2000 ml Balance 50 ml -290 ml -1500 ml Results/Medications Result Diagram: 05/10/16 0427 05/10/16 0423 Results 24 hrs Laboratory Tests Test 05/10/16 04:23 05/10/16 04:27 Anion Gap 13 Blood Urea Nitrogen 18 Calcium Level 8.0 L Carbon Dioxide Level 25 Chloride Level 107 Creatinine 1.44 H Glucose Level 91 Magnesium Level 1.6 L Phosphorus Level 3.8 Potassium Level 3.4 L Sodium Level 142 Basophils # 0.0 Basophils % 0.1 Blood Morphology Comment Eosinophils # 0.2 Eosinophils % 1.8 Free Thyroxine 1.46 Hematocrit 25.7 L Hemoglobin 8.6 L Lipase 653 H Lymphocytes # 1.0 Lymphocytes % 7.4 L Mean Corpuscular Hemoglobin 30.7 Mean Corpuscular Hemoglobin Concent 33.4 Mean Corpuscular Volume 91.9 Mean Platelet Volume 9.6 Monocytes # 0.8 Monocytes % 5.9 Neutrophils # 12.0 H Neutrophils % 84.8 H Nucleated Red Blood Cells # 0.0 Nucleated Red Blood Cells % 0.0 Platelet Count 417 Red Blood Count 2.80 L Red Cell Distribution Width 15.8 H Total Triiodothyronine 1.33 White Blood Count 14.1 H Medications Current Medications Ondansetron HCl (Zofran Inj) 4 mg Q6H PRN IV NAUSEA AND/OR VOMITING Last administered on 05/08/16t 00:09; Admin Dose 4 MG; Start 04/28/16 at 21:00 Clonidine (Catapres) 0.1 mg Q6H PRN PO SBP >160 Last administered on 05/06/16 08:27; Admin Dose 0.1 MG; Start 05/01/16 at 10:30 Morphine Sulfate (morphine) 2 mg Q4H PRN IV breakthrough pain Last administered on 05/07/16 23:32; Admin Dose 2 MG; Start 05/01/16 at 12:30 Acetaminophen/ Codeine Phosphate (Tylenol No.3) 1 tab Q6H PRN PO PAIN Last administered on 05/08/16 02:21; Admin Dose 1 TAB; Start 05/01/16 at 12:30 Clonidine HCl (Catapres-Tts 1 Patch) 1 patch Q7D TRANSDERM Last administered on 05/04/16 13:38; Admin Dose 1 PATCH; Start 05/04/16 at 12:00 Hydralazine HCl (Apresoline) 10 mg Q6H PRN IV sbp>160mmhg Last administered on 05/08/16 04:45; Admin Dose 10 MG; Start 05/06/16 at 10:00 Famotidine (Pepcid) 20 mg BID PO Last administered on 05/10/16 08:33; Admin Dose 20 MG; Start 05/07/16 at 10:00 Enoxaparin Sodium (Lovenox) 40 mg DAILY SC Last administered on 05/10/16 08:47 ; Admin Dose 40 MG; Start 05/08/16 at 09:00 Acetaminophen (Tylenol Tab) 650 mg Q6H PRN PO PAIN AND OR ELEVATED TEMP Last administered on 05/10/16 04:36; Admin Dose 650 MG; Start 05/08/16 at 04:45 Atenolol (Tenormin) 50 mg DAILY PO Last administered on 05/10/16 08:34; Admin Dose 50 MG; Start 05/09/16 at 09:00 Lactobacillus Acidophilus/ Rhamnosus (Culturelle) 1 cap BID PO Last administered on 05/10/16 08:33; Admin Dose 1 CAP; Start 05/09/16 at 09:00 Senna/Docusate Sodium (Senokot-S) 2 tab HS PO ; Start 05/09/16 at 21:00 Hydralazine HCl (Apresoline) 100 mg Q8 PO Last administered on 05/10/16 05:42 ; Admin Dose 100 MG; Start 05/09/16 at 22:00 Nifedipine (Procardia Xl) 60 mg DAILY PO Last administered on 05/10/16 08:34; Admin Dose 60 MG; Start 05/10/16 at 09:00 Assessment/Plan Chief Complaint/Hosp Course PHYSICAL EXAMINATION: GENERAL: This is a morbidly obese, middle-aged woman who is alert, in no distress. HEENT: Head atraumatic, normocephalic. Sclerae anicteric. Buccal mucosa pink. NECK: Supple. CHEST: Rise symmetrical. Breath sounds diminished to bases. HEART: S1, S2. ABDOMEN: Soft, bowel tones present. EXTREMITIES: Without cyanosis. ASSESSMENT: 1. Systemic inflammatory response syndrome with persistent leukocytosis, no evidence of active infectious process. 2. Acute renal failure. 3. Obesity. 4. Metastatic ovarian carcinoma, status post tumor debulking on 04/29/2016. 5. R chest portacath PLAN: Stable off abx, no fevers, continue observing, monitor for retention s/p Elizalde removed TELLO pt/staff Problems: EREN DANIELS NP May 10, 2016 13:13
[2016-05-10] MEDS: ONDANSETRON 4 MG INJ IV PRN ×2 (13:58→23:27)
[2016-05-10 14:00] VITALS: BP 136/68; PULSE 68
--- NOTE | 2016-05-10 14:36 | PN ---
Date/Time of Note Date/Time of Note DATE: 05/10/16 TIME: 14:30 Assessment/Plan VTE Prophylaxis VTE Prophylaxis Intervention: LMWH Lines/Catheters IV C[facility]ter Type (from [facility] Central Line Central line still needed: Yes Urinary Cath still in place: Yes Reason Cath still needed: other (indicate) (to be d/c) Assessment/Plan Chief Complaint/Hosp Course Assessment and plan 1. Metastatic ovarian cancer. Patient is noted with CT scan showing multiple soft tissue masses within the abdomen and pelvis consistent with metastatic disease. Patient is status post debulking surgery with hernia repair and bowel resection on 04/29/2016. Continue postop care. Continue with analgesics and antiemetics as needed. Tentative plan for chemotherapy per oncologist. We'll follow-up 2. History of left lower extremity DVT. Recent left lower Doppler showed no evidence of DVT on left lower extremity. Monitor for now. 3. Normocytic normochromic anemia. Monitor H&H. We'll transfuse PRBC as needed 4. Essential hypertension. We'll continue antihypertensives as needed. 5. Acute kidney injury. Likely secondary to ATN. Improved at present. Continue with nephrology recommendations 6. Sirs. Patient noted with leukocytosis. Remains afebrile. Etiology unclear. Off ABX at this time. Continue with ID recommendations 7. Left pleural effusion. No respiratory distress noted at this time. We'll monitor for now. Disposition and plan: Patient tentative plan for chemotherapy on 2016. Continue with oncology recommendations. Discharge when cleared by consultants Discussed plan of care with Dr. Shaw Problems: Subjective 24 Hr Interval Summary Free Text/Dictation Reports feeling nauseous. No abdominal pain at this time. Exam/Review of Systems Vital Signs Vitals Vital Signs Date Time Temp Pulse Resp B/P Pulse Ox O2 Delivery O2 Flow Rate FiO2 05/10/16 14:00 68 136/68 05/10/16 08:47 98.9 05/10/16 07:00 18 95 05/07/16 13:45 Room Air Intake and Output 05/09/16 05/09/16 05/10/16 15:00 23:00 07:00 Intake Total 50 ml 1110 ml 500 ml Output Total 1400 ml 2000 ml Balance 50 ml -290 ml -1500 ml Exam General: [No acute signs or symptoms of distress] Eyes: [pupils equal round, Anicteric sclera] Neck: Supple nontender, no JVD Cardiac: [S1, S2 auscultated, regular rhythm and rate] Pulmonary: [No coarse rhonchi or breathing auscultated] GI: Seen with sai mid abdominal area towards pelvis. Clean dry and intact Extremities: Edema left lower extremity +2 Skin: Surgical site on abdomen clean dry and intact with sai in place Neurologic: [Alert to person place and time and situation] Results Result Diagram: 05/10/1642605/10/16422 Results 24 hrs Laboratory Tests Test 05/10/16 04:23 05/10/16 04:27 Anion Gap 13 Blood Urea Nitrogen 18 Calcium Level 8.0 L Carbon Dioxide Level 25 Chloride Level 107 Creatinine 1.44 H Glucose Level 91 Magnesium Level 1.6 L Phosphorus Level 3.8 Potassium Level 3.4 L Sodium Level 142 Basophils # 0.0 Basophils % 0.1 Blood Morphology Comment Eosinophils # 0.2 Eosinophils % 1.8 Free Thyroxine 1.46 Hematocrit 25.7 L Hemoglobin 8.6 L Lipase 653 H Lymphocytes # 1.0 Lymphocytes % 7.4 L Mean Corpuscular Hemoglobin 30.7 Mean Corpuscular Hemoglobin Concent 33.4 Mean Corpuscular Volume 91.9 Mean Platelet Volume 9.6 Monocytes # 0.8 Monocytes % 5.9 Neutrophils # 12.0 H Neutrophils % 84.8 H Nucleated Red Blood Cells # 0.0 Nucleated Red Blood Cells % 0.0 Platelet Count 417 Red Blood Count 2.80 L Red Cell Distribution Width 15.8 H Total Triiodothyronine 1.33 White Blood Count 14.1 H Medications Medications Current Medications Ondansetron HCl (Zofran Inj) 4 mg Q6H PRN IV NAUSEA AND/OR VOMITING Last administered on 05/10/16 13:58; Admin Dose 4 MG; Start 04/28/16 at 21:00 Clonidine (Catapres) 0.1 mg Q6H PRN PO SBP >160 Last administered on 05/06/16 08:27; Admin Dose 0.1 MG; Start 05/01/16 at 10:30 Morphine Sulfate (morphine) 2 mg Q4H PRN IV breakthrough pain Last administered on 05/07/16 23:32; Admin Dose 2 MG; Start 05/01/16 at 12:30 Acetaminophen/ Codeine Phosphate (Tylenol No.3) 1 tab Q6H PRN PO PAIN Last administered on 05/08/16 02:21; Admin Dose 1 TAB; Start 05/01/16 at 12:30 Clonidine HCl (Catapres-Tts 1 Patch) 1 patch Q7D TRANSDERM Last administered on 05/04/16 13:38; Admin Dose 1 PATCH; Start 05/04/16 at 12:00 Hydralazine HCl (Apresoline) 10 mg Q6H PRN IV sbp>160mmhg Last administered on 05/08/16 04:45; Admin Dose 10 MG; Start 05/06/16 at 10:00 Famotidine (Pepcid) 20 mg BID PO Last administered on 05/10/16 08:33; Admin Dose 20 MG; Start 05/07/16 at 10:00 Enoxaparin Sodium (Lovenox) 40 mg DAILY SC Last administered on 05/10/16 08:47 ; Admin Dose 40 MG; Start 05/08/16 at 09:00 Acetaminophen (Tylenol Tab) 650 mg Q6H PRN PO PAIN AND OR ELEVATED TEMP Last administered on 05/10/16 04:36; Admin Dose 650 MG; Start 05/08/16 at 04:45 Atenolol (Tenormin) 50 mg DAILY PO Last administered on 05/10/16 08:34; Admin Dose 50 MG; Start 05/09/16 at 09:00 Lactobacillus Acidophilus/ Rhamnosus (Culturelle) 1 cap BID PO Last administered on 05/10/16 08:33; Admin Dose 1 CAP; Start 05/09/16 at 09:00 Senna/Docusate Sodium (Senokot-S) 2 tab HS PO ; Start 05/09/16 at 21:00 Hydralazine HCl (Apresoline) 100 mg Q8 PO Last administered on 05/10/16 14:00 ; Admin Dose 100 MG; Start 05/09/16 at 22:00 Nifedipine (Procardia Xl) 60 mg DAILY PO Last administered on 05/10/16 08:34; Admin Dose 60 MG; Start 05/10/16 at 09:00 ASH LEWIS May 10, 2016 14:36
[2016-05-10 19:38] VITALS: BP 147/67; RESP 19
[2016-05-10] MEDS: SENNA/DOCUSATE NA (8.6MG/50MG) TAB PO SCH (20:57)
[2016-05-10] MEDS: hydrALAzine 20 MG INJ IV PRN (20:58)
--- NOTE | 2016-05-10 22:39 | PN ---
Date/Time of Note Date/Time of Note DATE: 05/10/16 TIME: 22:37 Assessment/Plan VTE Prophylaxis VTE Prophylaxis Intervention: LMWH Lines/Catheters IV Catheter Type (from Nrs): Central Line Urinary Cath still in place: Yes Assessment/Plan Chief Complaint/Hosp Course Ovarian cancer with hernia and possible SBO and recurrence. Problems: Assessment/Plan see below Subjective 24 Hr Interval Summary Free Text/Dictation S- Feels better overall with less pain and OOB more. + BM . O Resp- clear CVS- NSR Abd- soft, appropriate tenderness, clean with KORIN output Ext- NT no edema A- doing adequately P- Will adv diet more a.m. and ll consider premedication tomorrow if creatinine in order; issue was probably due to Vancomycin now off Exam/Review of Systems Vital Signs Vitals Vital Signs Date Time Temp Pulse Resp B/P Pulse Ox O2 Delivery O2 Flow Rate FiO2 05/10/16 19:38 100.1 76 19 147/67 97 05/07/16 13:45 Room Air Intake and Output 05/09/16 05/09/16 05/10/16 15:00 23:00 07:00 Intake Total 50 ml 1110 ml 500 ml Output Total 1400 ml 2000 ml Balance 50 ml -290 ml -1500 ml Results Result Diagram: 05/10/16 0427 05/10/16 0423 Results 24 hrs Laboratory Tests Test 05/10/16 04:23 05/10/16 04:27 Anion Gap 13 Blood Urea Nitrogen 18 Calcium Level 8.0 L Carbon Dioxide Level 25 Chloride Level 107 Creatinine 1.44 H Glucose Level 91 Magnesium Level 1.6 L Phosphorus Level 3.8 Potassium Level 3.4 L Sodium Level 142 Basophils # 0.0 Basophils % 0.1 Blood Morphology Comment Eosinophils # 0.2 Eosinophils % 1.8 Free Thyroxine 1.46 Hematocrit 25.7 L Hemoglobin 8.6 L Lipase 653 H Lymphocytes # 1.0 Lymphocytes % 7.4 L Mean Corpuscular Hemoglobin 30.7 Mean Corpuscular Hemoglobin Concent 33.4 Mean Corpuscular Volume 91.9 Mean Platelet Volume 9.6 Monocytes # 0.8 Monocytes % 5.9 Neutrophils # 12.0 H Neutrophils % 84.8 H Nucleated Red Blood Cells # 0.0 Nucleated Red Blood Cells % 0.0 Platelet Count 417 Red Blood Count 2.80 L Red Cell Distribution Width 15.8 H Total Triiodothyronine 1.33 White Blood Count 14.1 H Medications Medications Current Medications Ondansetron HCl (Zofran Inj) 4 mg Q6H PRN IV NAUSEA AND/OR VOMITING Last administered on 05/10/16 13:58; Admin Dose 4 MG; Start 04/28/16 at 21:00 Clonidine (Catapres) 0.1 mg Q6H PRN PO SBP >160 Last administered on 05/06/16 08:27; Admin Dose 0.1 MG; Start 05/01/16 at 10:30 Morphine Sulfate (morphine) 2 mg Q4H PRN IV breakthrough pain Last administered on 05/07/16 23:32; Admin Dose 2 MG; Start 05/01/16 at 12:30 Acetaminophen/ Codeine Phosphate (Tylenol No.3) 1 tab Q6H PRN PO PAIN Last administered on 05/08/16 02:21; Admin Dose 1 TAB; Start 05/01/16 at 12:30 Clonidine HCl (Catapres-Tts 1 Patch) 1 patch Q7D TRANSDERM Last administered on 05/04/16 13:38; Admin Dose 1 PATCH; Start 05/04/16 at 12:00 Hydralazine HCl (Apresoline) 10 mg Q6H PRN IV sbp>160mmhg Last administered on 05/08/16 04:45; Admin Dose 10 MG; Start 05/06/16 at 10:00 Famotidine (Pepcid) 20 mg BID PO Last administered on 05/10/16 20:56; Admin Dose 20 MG; Start 05/07/16 at 10:00 Enoxaparin Sodium (Lovenox) 40 mg DAILY SC Last administered on 05/10/16 08:47 ; Admin Dose 40 MG; Start 05/08/16 at 09:00 Acetaminophen (Tylenol Tab) 650 mg Q6H PRN PO PAIN AND OR ELEVATED TEMP Last administered on 05/10/16 16:59; Admin Dose 650 MG; Start 05/08/16 at 04:45 Atenolol (Tenormin) 50 mg DAILY PO Last administered on 05/10/16 08:34; Admin Dose 50 MG; Start 05/09/16 at 09:00 Lactobacillus Acidophilus/ Rhamnosus (Culturelle) 1 cap BID PO Last administered on 05/10/16 20:56; Admin Dose 1 CAP; Start 05/09/16 at 09:00 Senna/Docusate Sodium (Senokot-S) 2 tab HS PO Last administered on 05/10/16 20 :57; Admin Dose 2 TAB; Start 05/09/16 at 21:00 Hydralazine HCl (Apresoline) 100 mg Q8 PO Last administered on 05/10/16 14:00 ; Admin Dose 100 MG; Start 05/09/16 at 22:00 Nifedipine (Procardia Xl) 60 mg DAILY PO Last administered on 05/10/16 08:34; Admin Dose 60 MG; Start 05/10/16 at 09:00 LEELA VILLANUEVA MD May 10, 2016 22:39
[2016-05-11 05:31] LABS: POTASSIUM 3.5 mmol/L (3.5-5.1)
[2016-05-11 05:34] LABS: CREATININE 1.39 mg/dl (0.44-1.00)
[2016-05-11 05:35] LABS: CALCIUM 8.6 mg/dl (8.4-10.2); MAGNESIUM 1.7 mg/dl (1.7-2.5); PHOSPHORUS 3.8 mg/dl (2.5-4.9)
[2016-05-11 08:08] VITALS: BP 147/81; RESP 18
[2016-05-11] MEDS: LACTOBACILLUS RHAMNOSUS CAP PO SCH ×2 (08:25→21:03)
[2016-05-11] MEDS: FAMOTIDINE 20 MG TAB PO SCH ×2 (08:25→21:03)
[2016-05-11] MEDS: ATENOLOL 50 MG TAB PO SCH (08:26)
[2016-05-11] MEDS: NIFEdipine (XL) 60 MG TAB PO SCH (08:26)
[2016-05-11] MEDS: ACETAMINOPHEN 325 MG TAB PO PRN ×2 (08:26→17:26)
[2016-05-11] MEDS: ENOXAPARIN 40 MG/0.4 ML SYG SC SCH (08:31)
--- NOTE | 2016-05-11 09:56 | PN ---
DATE: 05/11/2016 SUBJECTIVE: The patient overnight continued to have fever spikes of temperatures 100.1. No other a cute events noted. No hemoptysis, hematemesis or hematochezia. OBJECTIVE: VITAL SIGNS: Blood pressure 147/81, respiration 18, pulse 81, temperature 99.9. HEENT: Head is normocephalic. NECK: Supple. HEART: Regular rate. LUNGS: Show diminished breath sounds at the base. ABDOMEN: Soft, nontender to palpation. No rebound or guarding. EXTREMITIES: Negative for clubbing, cyanosis, no edema. DERMATOLOGIC: No rashes. MUSCULOSKELETAL: No joint effusions. NEUROLOGIC: No change in exam. MEDICATIONS: The patient's medications have been reviewed. LABORATORY DATA: White count 14.1, hemoglobin 9.6, hematocrit 25.7, platelet count 417. Sodium 143 , potassium 3.5, BUN 13, creatinine 1.39. ASSESSMENT AND PLAN: 1. Nonoliguric acute kidney injury with previous baseline creatinine of 0.9 mg/dL. Etiology is sec ondary to acute tubular necrosis. Renal function is slowly improving. Continue supportive care, re farshad dose all meds, avoid nephrotoxins. 2. Electrolyte abnormality, improving. Continue to monitor and replete. 3. Anemia. Continue to monitor hemoglobin and hematocrit levels. 4. Mineral bone disorder. Continue to monitor calcium and phosphorous levels. 5. Fever, Sepsis inflammatory response syndrome. Etiology is unclear, possible infection. The rogelio ent has completed a course of antibiotics. Repeat cultures have been sent out. Will continue to mon itor. Continue antipyretic medications of Tylenol. Follow up with Infectious Disease. 6. Hypertension. Continue current blood pressure regimen. Adjust medications as needed. 7. Metastatic ovarian carcinoma status post debulk surgery. Follow up with ROOM SERVICE ASSOCIATE/ONC 8. General debility. Dictated By: JAHAIRA FELICIANO/COLTON Conf#: [id number] DID#: [id number]
[2016-05-11 11:45] VITALS: BP 110/58; PULSE 71
[2016-05-11] MEDS: CLONIDINE 0.1 MG/24 HR PATCH TRANSDERM SCH (11:45)
--- NOTE | 2016-05-11 12:49 | RADRPT ---
PROCEDURE: XR Chest. CLINICAL INDICATION: Shortness of breath. TECHNIQUE: Single frontal view. COMPARISON: 05/03/2016. FINDINGS: There is a tunneled right internal jugular vein implanted port central venous catheter. The nasogas tric tube has been removed. There is atelectasis at the lung bases, slightly improved. The lungs a re otherwise clear. The heart size is normal. There is a small left pleural effusion. There is no pneumothorax. IMPRESSION: 1. Nasogastric tube removed. 2. Atelectasis at the lung bases, slightly improved. 3. Small left pleural effusion. RPTAT: QQ .Panda Philip MD, MD Date Time Electronically viewed and signed by .Panda Philip MD, MD on 05/11/2016 12:48 .R/
--- NOTE | 2016-05-11 13:13 | PN ---
Date/Time of Note Date/Time of Note DATE: 05/11/16 TIME: 13:11 Assessment/Plan VTE Prophylaxis VTE Prophylaxis Intervention: LMWH Lines/Catheters IV [facility]ter Type (from [facility] Central Line Urinary Cath still in place: No Assessment/Plan Chief Complaint/Hosp Course Assessment and plan 1. Metastatic ovarian cancer. Patient is noted with CT scan showing multiple soft tissue masses within the abdomen and pelvis consistent with metastatic disease. Patient is status post debulking surgery with hernia repair and bowel resection on 04/29/2016. Continue postop care. Continue with analgesics and antiemetics as needed. Tentative plan for chemotherapy per oncologist. We'll follow-up 2. History of left lower extremity DVT. Recent left lower Doppler showed no evidence of DVT on left lower extremity. Monitor for now. 3. Normocytic normochromic anemia. Monitor H&H. We'll transfuse PRBC as needed 4. Essential hypertension. We'll continue antihypertensives as needed. 5. Acute kidney injury. Likely secondary to ATN. Improved at present. Continue with nephrology recommendations 6. Sirs. Patient noted with leukocytosis. Remains afebrile. Etiology unclear. Off ABX at this time. Continue with ID recommendations 7. Left pleural effusion. No respiratory distress noted at this time. We'll monitor for now. Disposition and plan: Plan for chemotherapy per oncologist. cont inpatient monitoring. follow up AM labs Discussed plan of care with Dr. Shaw Problems: Subjective 24 Hr Interval Summary Free Text/Dictation no s/s of distress. comfortable at this time Exam/Review of Systems Vital Signs Vitals Vital Signs Date Time Temp Pulse Resp B/P Pulse Ox O2 Delivery O2 Flow Rate FiO2 05/11/16 11:45 98.9 71 110/58 05/11/16 08:08 18 94 05/07/16 13:45 Room Air Intake and Output 05/10/16 05/10/16 05/11/16 14:59 22:59 06:59 Intake Total 50 ml 440 ml 420 ml Output Total 800 ml 750 ml Balance 50 ml -360 ml -330 ml Exam General: No acute signs or symptoms of distress Eyes: pupils equal round, Anicteric sclera Neck: Supple nontender, no JVD Cardiac: S1, S2 auscultated, regular rhythm and rate Pulmonary: No coarse rhonchi or breathing auscultated GI: Seen with sai mid abdominal area towards pelvis. Clean dry and intact Extremities: Edema left lower extremity +2 Skin: Surgical site on abdomen clean dry and intact with sai in place Neurologic: Alert to person place and time and situation Results Result Diagram: 05/10/1642605/11/16 0420 Results 24 hrs Laboratory Tests Test 05/11/16 04:20 Anion Gap 15 Blood Urea Nitrogen 13 Calcium Level 8.6 Carbon Dioxide Level 28 Chloride Level 104 Creatinine 1.39 H Glucose Level 90 Lipase 897 H Magnesium Level 1.7 Phosphorus Level 3.8 Potassium Level 3.5 Sodium Level 143 Medications Medications Current Medications Ondansetron HCl (Zofran Inj) 4 mg Q6H PRN IV NAUSEA AND/OR VOMITING Last administered on 05/10/16 23:27; Admin Dose 4 MG; Start 04/28/16 at 21:00 Clonidine (Catapres) 0.1 mg Q6H PRN PO SBP >160 Last administered on 05/06/16 08:27; Admin Dose 0.1 MG; Start 05/01/16 at 10:30 Morphine Sulfate (morphine) 2 mg Q4H PRN IV breakthrough pain Last administered on 05/07/16 23:32; Admin Dose 2 MG; Start 05/01/16 at 12:30 Acetaminophen/ Codeine Phosphate (Tylenol No.3) 1 tab Q6H PRN PO PAIN Last administered on 05/08/16 02:21; Admin Dose 1 TAB; Start 05/01/16 at 12:30 Clonidine HCl (Catapres-Tts 1 Patch) 1 patch Q7D TRANSDERM Last administered on 05/11/16 11:45; Admin Dose 1 PATCH; Start 05/04/16 at 12:00 Hydralazine HCl (Apresoline) 10 mg Q6H PRN IV sbp>160mmhg Last administered on 05/08/16 04:45; Admin Dose 10 MG; Start 05/06/16 at 10:00 Famotidine (Pepcid) 20 mg BID PO Last administered on 05/11/16 08:25; Admin Dose 20 MG; Start 05/07/16 at 10:00 Enoxaparin Sodium (Lovenox) 40 mg DAILY SC Last administered on 05/11/16 08:31 ; Admin Dose 40 MG; Start 05/08/16 at 09:00 Acetaminophen (Tylenol Tab) 650 mg Q6H PRN PO PAIN AND OR ELEVATED TEMP Last administered on 05/11/16 08:26; Admin Dose 650 MG; Start 05/08/16 at 04:45 Atenolol (Tenormin) 50 mg DAILY PO Last administered on 05/11/16 08:26; Admin Dose 50 MG; Start 05/09/16 at 09:00 Lactobacillus Acidophilus/ Rhamnosus (Culturelle) 1 cap BID PO Last administered on 05/11/16 08:25; Admin Dose 1 CAP; Start 05/09/16 at 09:00 Senna/Docusate Sodium (Senokot-S) 2 tab HS PO Last administered on 05/10/16 20 :57; Admin Dose 2 TAB; Start 05/09/16 at 21:00 Hydralazine HCl (Apresoline) 100 mg Q8 PO Last administered on 05/11/16 06:03 ; Admin Dose 100 MG; Start 05/09/16 at 22:00 Nifedipine (Procardia Xl) 60 mg DAILY PO Last administered on 05/11/16 08:26; Admin Dose 60 MG; Start 05/10/16 at 09:00 ASH LEWIS May 11, 2016 13:13
[2016-05-11 14:21] VITALS: BP 130/62; PULSE 66
[2016-05-11 19:40] VITALS: BP 139/67; RESP 18
--- NOTE | 2016-05-11 20:48 | PN ---
Date/Time of Note Date/Time of Note DATE: 05/11/16 TIME: 20:44 Assessment/Plan VTE Prophylaxis VTE Prophylaxis Intervention: LMWH Lines/Catheters IV Catheter Type (from Nrs): Central Line Urinary Cath still in place: No Assessment/Plan Chief Complaint/Hosp Course Ovarian cancer with hernia and possible SBO and recurrence. Problems: Assessment/Plan A- doing adequately P- Will recheck a.m. as issue is chemo yannick before discharge if possible. If renal function mandates further delay will consider discharge and treat as outpatient but given published data that survival correlates with rabidity that it starts if creatinine normalizes will consider before d/c. Subjective 24 Hr Interval Summary Free Text/Dictation S- Feels better overall with less pain and OOB more. + BM . O Resp- clear CVS- NSR Abd- soft, appropriate tenderness, clean with KORIN output Ext- NT no edema A- doing adequately P- Will recheck a.m. as issue is chemo yannick before discharge if possible. If renal function mandates further delay will consider discharge and treat as outpatient but given published data that survival correlates with rabidity that it starts if creatinine normalizes will consider before d/c. Exam/Review of Systems Vital Signs Vitals Vital Signs Date Time Temp Pulse Resp B/P Pulse Ox O2 Delivery O2 Flow Rate FiO2 05/11/16 19:40 98.1 71 18 139/67 96 05/07/16 13:45 Room Air Intake and Output 05/10/16 05/10/16 05/11/16 15:00 23:00 07:00 Intake Total 50 ml 440 ml 420 ml Output Total 800 ml 750 ml Balance 50 ml -360 ml -330 ml Results Result Diagram: 05/10/16 0427 05/11/16 0420 Results 24 hrs Laboratory Tests Test 05/11/16 04:20 05/11/16 15:59 Anion Gap 15 Blood Urea Nitrogen 13 Calcium Level 8.6 Carbon Dioxide Level 28 Chloride Level 104 Creatinine 1.39 H Glucose Level 90 Lipase 897 H Magnesium Level 1.7 Phosphorus Level 3.8 Potassium Level 3.5 Sodium Level 143 Lab Scanned Report BLOOD TRANSFUSION Medications Medications Current Medications Ondansetron HCl (Zofran Inj) 4 mg Q6H PRN IV NAUSEA AND/OR VOMITING Last administered on 05/10/16t 23:27; Admin Dose 4 MG; Start 04/28/16 at 21:00 Clonidine (Catapres) 0.1 mg Q6H PRN PO SBP >160 Last administered on 05/06/16 08:27; Admin Dose 0.1 MG; Start 05/01/16 at 10:30 Morphine Sulfate (morphine) 2 mg Q4H PRN IV breakthrough pain Last administered on 05/07/16 23:32; Admin Dose 2 MG; Start 05/01/16 at 12:30 Acetaminophen/ Codeine Phosphate (Tylenol No.3) 1 tab Q6H PRN PO PAIN Last administered on 05/08/16 02:21; Admin Dose 1 TAB; Start 05/01/16 at 12:30 Clonidine HCl (Catapres-Tts 1 Patch) 1 patch Q7D TRANSDERM Last administered on 05/11/16 11:45; Admin Dose 1 PATCH; Start 05/04/16 at 12:00 Hydralazine HCl (Apresoline) 10 mg Q6H PRN IV sbp>160mmhg Last administered on 05/08/16 04:45; Admin Dose 10 MG; Start 05/06/16 at 10:00 Famotidine (Pepcid) 20 mg BID PO Last administered on 05/11/16 08:25; Admin Dose 20 MG; Start 05/07/16 at 10:00 Enoxaparin Sodium (Lovenox) 40 mg DAILY SC Last administered on 05/11/16 08:31 ; Admin Dose 40 MG; Start 05/08/16 at 09:00 Acetaminophen (Tylenol Tab) 650 mg Q6H PRN PO PAIN AND OR ELEVATED TEMP Last administered on 05/11/16 17:26; Admin Dose 650 MG; Start 05/08/16 at 04:45 Atenolol (Tenormin) 50 mg DAILY PO Last administered on 05/11/16 08:26; Admin Dose 50 MG; Start 05/09/16 at 09:00 Lactobacillus Acidophilus/ Rhamnosus (Culturelle) 1 cap BID PO Last administered on 05/11/16 08:25; Admin Dose 1 CAP; Start 05/09/16 at 09:00 Senna/Docusate Sodium (Senokot-S) 2 tab HS PO Last administered on 05/10/16 20 :57; Admin Dose 2 TAB; Start 05/09/16 at 21:00 Hydralazine HCl (Apresoline) 100 mg Q8 PO Last administered on 05/11/16 14:21 ; Admin Dose 100 MG; Start 05/09/16 at 22:00 Nifedipine (Procardia Xl) 60 mg DAILY PO Last administered on 05/11/16 08:26; Admin Dose 60 MG; Start 05/10/16 at 09:00 LEELA VILLANUEVA MD May 11, 2016 20:48
[2016-05-11] MEDS: SENNA/DOCUSATE NA (8.6MG/50MG) TAB PO SCH (21:00)
[2016-05-12 05:35] LABS: BASOPHILS % 0.1 % (0.0-2.0); EOSINOPHILS # 0.4 10^3/ul (0.0-0.5); EOSINOPHILS % 2.6 % (0.0-7.0); HEMATOCRIT 27.6 % (37.0-47.0); HEMOGLOBIN 9.3 g/dl (12.0-16.0); LYMPHOCYTES # 1.1 10^3/ul (0.8-2.9); LYMPHOCYTES % 7.3 % (15.0-51.0); MEAN CORPUSCULAR HEMOGLOBIN 30.6 pg (29.0-33.0); MEAN CORPUSCULAR HGB CONC 33.5 g/dl (32.0-37.0); MEAN CORPUSCULAR VOLUME 91.4 fl (82.0-101.0); MEAN PLATELET VOLUME 9.9 fl (7.4-10.4); MONOCYTE # 1.3 10^3/ul (0.3-0.9); MONOCYTES % 8.1 % (0.0-11.0); NEUTROPHIL # 12.7 10^3/ul (1.6-7.5); NEUTROPHILS % 81.9 % (39.0-77.0); PLATELET COUNT 474 10^3/UL (140-440); RED BLOOD COUNT 3.03 10^6/ul (4.20-5.40); UNCORRECTED WBC 15.5 10^3/ul (4.8-10.8); WHITE BLOOD COUNT 15.5 10^3/ul (4.8-10.8)
[2016-05-12 05:56] LABS: POTASSIUM 3.2 mmol/L (3.5-5.1)
[2016-05-12 05:59] LABS: CREATININE 1.24 mg/dl (0.44-1.00)
[2016-05-12 06:00] LABS: CALCIUM 8.3 mg/dl (8.4-10.2); MAGNESIUM 1.3 mg/dl (1.7-2.5); PHOSPHORUS 3.9 mg/dl (2.5-4.9)
[2016-05-12 06:35] LABS: CONDITION 1; LH ANALYZER COMMENTS 1
[2016-05-12 07:34] VITALS: BP 160/72; RESP 18
[2016-05-12] MEDS ORDERED: POTASSIUM CHLORIDE (SR) 20 MEQ TAB PO STA (08:09)
[2016-05-12] MEDS ORDERED: MAGNESIUM SULFATE 2 GM/50 ML 50 ML IVPB ONE (08:30)
[2016-05-12] MEDS: NIFEdipine (XL) 60 MG TAB PO SCH (08:58)
[2016-05-12] MEDS: FAMOTIDINE 20 MG TAB PO SCH (08:59)
[2016-05-12] MEDS: LACTOBACILLUS RHAMNOSUS CAP PO SCH (08:59)
[2016-05-12] MEDS: ATENOLOL 50 MG TAB PO SCH (08:59)
--- NOTE | 2016-05-12 09:42 | PN ---
DATE: SUBJECTIVE: The patient continues to have low grade fevers. No other events noted. No hemoptysis, hematemesis or hematochezia. OBJECTIVE: VITAL SIGNS: Blood pressure 160/72, respiration 18, pulse 76, temperature 98.9. HEENT: Head is normocephalic. NECK: Supple. HEART: Regular rate. LUNGS: Show diminished breath sounds at the base. ABDOMEN: Soft with a laparotomy wound that is healing well, nontender. EXTREMITIES: Negative for clubbing, cyanosis. No edema. DERMATOLOGIC: No rashes. MUSCULOSKELETAL: No joint effusions. NEUROLOGIC: No focal deficits. MEDICATIONS: The patient's medications have been reviewed. LABORATORY DATA: Shows a sodium 141, potassium 3.2, BUN 12, creatinine 1.24, magnesium 1.3, calcium 8.3. White count 15.5, hemoglobin 9.3, hematocrit 27.6, platelet count is 474. IMAGING: Chest x-ray was reviewed. ASSESSMENT AND PLAN: 1. Nonoliguric acute kidney injury with previous baseline creatinine of 0.9 mg/dL. Etiology of acu te kidney injury is secondary to acute tubular necrosis. Renal function is slowly improving. Caitlin nue current treatment plan, supportive care, renally dose all meds, avoid nephrotoxins. 2. Hypokalemia and hypomagnesemia. Continue to monitor and replete. 3. Anemia. Continue to monitor H and H levels. 4. Mineral bone disorder. Continue to monitor calcium and phosphorus levels. 5. Fevers, SIRS. The patient's workup is ongoing. Repeat blood cultures have been negative. We w ill continue to monitor. 6. Hypertension. Continue current blood pressure regimen. 7. Metastatic ovarian CA status post debulking surgery followup with ENOLOGIST/ONC. 8. General debility. Dictated By: JAHAIRA CAMPOS DO NR/NTS Conf#: [id number] DID#: [id number]
[2016-05-12] MEDS: ENOXAPARIN 40 MG/0.4 ML SYG SC SCH (09:53)
--- NOTE | 2016-05-12 12:09 | PN ---
DATE: 05/12/2016 INFECTIOUS DISEASE PROGRESS NOTE SUBJECTIVE: No acute changes overnight. The patient is alert, sitting comfortably in a chair, and wants to go home. She had been afebrile since yesterday. The latest temperature was 100 at 5:00 p. m. on 05/11/2016. Blood cultures drawn from Port-A-Cath, preliminary negative. WBC today 15.5, H and H 9.3 and 27.6, platelets 474, neutrophils 81.9. BUN 12, creatinine 1.24. INDWELLINGS: Right chest Port-A-Cath. ANTIMICROBIALS: The patient is off antibiotics. PHYSICAL EXAMINATION: GENERAL: This is an obese, well-developed, middle aged woman, who is alert, in no distress. HEENT: Head atraumatic, normocephalic. Sclerae anicteric. Buccal mucosa pink. NECK: Supple, trachea midline. CHEST: Chest rise is symmetrical. Breath sounds clear, diminished to the bases. HEART: S1, S2. ABDOMEN: Soft, bowel tones present. EXTREMITIES: Without cyanosis. ASSESSMENT: 1. Systemic inflammatory response syndrome with persistent leukocytosis, status post fevers. Blood cultures drawn for Port-A-Cath negative. 2. Acute renal failure. 3. Metastatic ovarian cancer, status post tumor debulking on 04/29/2015. 4. Right chest Port-A-Cath. PLAN: The patient remains stable. She is off antibiotics and has been afebrile since yesterday. B lood cultures have been negative since 05/10/2016. Chest x-ray revealed no pneumonia. We will cont inue observing her off antibiotics. Dictated By: EREN DANIELS PRINCIPAL JAVA SOFTWARE ENGINEER for [employer] NICE/COLTON Conf#: [id number] DID#: [id number]
--- NOTE | 2016-05-12 12:19 | PN ---
DATE: 05/11/2016 SUBJECTIVE: The patient is alert, sitting comfortably in a chair. She spiked fever of 101.4 yester day and currently afebrile. Denies pain. No nausea, vomiting, diarrhea. Voiding without difficult y. No CBC this morning. BUN 13, creatinine 1.39. INDWELLINGS: Right chest Perma-Cath placed in 2013. DIAGNOSTICS: Chest x-ray this morning revealed atelectasis at the lung bases, slightly improved. PHYSICAL EXAMINATION: GENERAL: This is an obese, well-developed, middle-aged woman who is alert, in no distress. HEENT: Head atraumatic, normocephalic. Sclerae anicteric. Buccal mucosa dry. NECK: Supple, trachea midline. CHEST: Rise symmetrical. Breath sounds clear. HEART: S1, S2. ABDOMEN: Obese, soft. Bowel sounds present. Mid abdominal incision with sai intact. No pain on palpation. EXTREMITIES: Without cyanosis. ASSESSMENT: 1. Systemic inflammatory response syndrome, status post high fever yesterday, currently afebrile, e tiology unclear, rule out line sepsis. 2. Metastatic ovarian carcinoma, status post tumor debulking on 04/29/2016. 3. Obesity. 4. Acute renal failure. PLAN: The patient remains clinically stable. We are going to check blood cultures from her Po rt-A-Cath to make sure she does not have infected line. Continue observing her on off antibiotics. Repeat cultures if she spikes fever and follow recommendation of specialists. The patient wants to go home. Dictated By: EREN DANIELS END MATCHER for [employer] NICE/NTS Conf#: [id number] DID#: [id number]
--- NOTE | 2016-05-12 14:20 | PN ---
Date/Time of Note Date/Time of Note DATE: 05/12/16 TIME: 14:18 Assessment/Plan VTE Prophylaxis VTE Prophylaxis Intervention: LMWH Lines/Catheters IV [facility]from [facility]): jamie cath Urinary Cath still in place: No Assessment/Plan Chief Complaint/Hosp Course Assessment and plan 1. Metastatic ovarian cancer. Patient is noted with CT scan showing multiple soft tissue masses within the abdomen and pelvis consistent with metastatic disease. Patient is status post debulking surgery with hernia repair and bowel resection on 04/29/2016. Continue postop care. Continue with analgesics and antiemetics as needed. Tentative plan for chemotherapy per oncologist. We'll follow-up 2. History of left lower extremity DVT. Recent left lower Doppler showed no evidence of DVT on left lower extremity. Monitor for now. 3. Normocytic normochromic anemia. Monitor H&H. We'll transfuse PRBC as needed 4. Essential hypertension. We'll continue antihypertensives as needed. 5. Acute kidney injury. Likely secondary to ATN. Improved at present. Continue with nephrology recommendations 6. Sirs. Patient noted with leukocytosis. Remains afebrile. Etiology unclear. Off ABX at this time. Continue with ID recommendations 7. Left pleural effusion. No respiratory distress noted at this time. We'll monitor for now. Disposition and plan: Renal function is improving. Continue with nephrology recommendations. Chemotherapy per oncologist. Continue support of care Discussed plan of care with Dr. Shaw Problems: Subjective 24 Hr Interval Summary Free Text/Dictation Comfortable at present. No apparent distress Exam/Review of Systems Vital Signs Vitals Vital Signs Date Time Temp Pulse Resp B/P Pulse Ox O2 Delivery O2 Flow Rate FiO2 05/12/16 07:34 98.9 76 18 160/72 93 Intake and Output 05/11/16 05/11/16 05/12/16 15:00 23:00 07:00 Intake Total 740 ml 500 ml Balance 740 ml 500 ml Exam General: No acute signs or symptoms of distress Eyes: pupils equal round, Anicteric sclera Neck: Supple nontender, no JVD Cardiac: S1, S2 auscultated, regular rhythm and rate Pulmonary: No coarse rhonchi or breathing auscultated GI: Seen with sai mid abdominal area towards pelvis. Clean dry and intact Extremities: Edema left lower extremity +2 Skin: Surgical site on abdomen clean dry and intact with sai in place Neurologic: Alert to person place and time and situation Results Result Diagram: 05/12/16 0430 05/12/16 0430 Results 24 hrs Laboratory Tests Test 05/11/16 15:59 05/12/16 04:30 Lab Scanned Report BLOOD TRANSFUSION Anion Gap 12 Basophils # 0.0 Basophils % 0.1 Blood Morphology Comment Blood Urea Nitrogen 12 Calcium Level 8.3 L Carbon Dioxide Level 30 Chloride Level 102 Creatinine 1.24 H Eosinophils # 0.4 Eosinophils % 2.6 Glucose Level 92 Hematocrit 27.6 L Hemoglobin 9.3 L Lymphocytes # 1.1 Lymphocytes % 7.3 L Magnesium Level 1.3 L Mean Corpuscular Hemoglobin 30.6 Mean Corpuscular Hemoglobin Concent 33.5 Mean Corpuscular Volume 91.4 Mean Platelet Volume 9.9 Monocytes # 1.3 H Monocytes % 8.1 Neutrophils # 12.7 H Neutrophils % 81.9 H Nucleated Red Blood Cells # 0.0 Nucleated Red Blood Cells % 0.0 Phosphorus Level 3.9 Platelet Count 474 H Potassium Level 3.2 L Red Blood Count 3.03 L Red Cell Distribution Width 16.0 H Sodium Level 141 White Blood Count 15.5 H Medications Medications Current Medications Ondansetron HCl (Zofran Inj) 4 mg Q6H PRN IV NAUSEA AND/OR VOMITING Last administered on 05/10/16 23:27; Admin Dose 4 MG; Start 04/28/16 at 21:00 Clonidine (Catapres) 0.1 mg Q6H PRN PO SBP >160 Last administered on 05/06/16 08:27; Admin Dose 0.1 MG; Start 05/01/16 at 10:30 Morphine Sulfate (morphine) 2 mg Q4H PRN IV breakthrough pain Last administered on 05/07/16 23:32; Admin Dose 2 MG; Start 05/01/16 at 12:30 Acetaminophen/ Codeine Phosphate (Tylenol No.3) 1 tab Q6H PRN PO PAIN Last administered on 05/08/16 02:21; Admin Dose 1 TAB; Start 05/01/16 at 12:30 Clonidine HCl (Catapres-Tts 1 Patch) 1 patch Q7D TRANSDERM Last administered on 05/11/16 11:45; Admin Dose 1 PATCH; Start 05/04/16 at 12:00 Hydralazine HCl (Apresoline) 10 mg Q6H PRN IV sbp>160mmhg Last administered on 05/08/16 04:45; Admin Dose 10 MG; Start 05/06/16 at 10:00 Famotidine (Pepcid) 20 mg BID PO Last administered on 05/12/16 08:59; Admin Dose 20 MG; Start 05/07/16 at 10:00 Enoxaparin Sodium (Lovenox) 40 mg DAILY SC Last administered on 05/12/16 09:53 ; Admin Dose 40 MG; Start 05/08/16 at 09:00 Acetaminophen (Tylenol Tab) 650 mg Q6H PRN PO PAIN AND OR ELEVATED TEMP Last administered on 05/11/16 17:26; Admin Dose 650 MG; Start 05/08/16 at 04:45 Atenolol (Tenormin) 50 mg DAILY PO Last administered on 05/12/16 08:59; Admin Dose 50 MG; Start 05/09/16 at 09:00 Lactobacillus Acidophilus/ Rhamnosus (Culturelle) 1 cap BID PO Last administered on 05/12/16 08:59; Admin Dose 1 CAP; Start 05/09/16 at 09:00 Senna/Docusate Sodium (Senokot-S) 2 tab HS PO Last administered on 05/10/16 20 :57; Admin Dose 2 TAB; Start 05/09/16 at 21:00 Hydralazine HCl (Apresoline) 100 mg Q8 PO Last administered on 05/12/16 05:44 ; Admin Dose 100 MG; Start 05/09/16 at 22:00 Nifedipine (Procardia Xl) 60 mg DAILY PO Last administered on 05/12/16 08:58; Admin Dose 60 MG; Start 05/10/16 at 09:00 ASH LEWIS May 12, 2016 14:20
[2016-05-12 14:56] VITALS: BP 130/63; PULSE 95
[2016-05-12] MEDS ORDERED: COU1 PO (14:58)
[2016-05-12] MEDS ORDERED: NIFE60TA11 PO (14:58)
[2016-05-12] MEDS ORDERED: ATEN50TA PO (14:58)
[2016-05-12] MEDS ORDERED: CLON-379 PO (14:58)
[2016-05-12] MEDS ORDERED: LACT1CAP57 PO (14:58)
[2016-05-12] MEDS ORDERED: HEPARIN (100 UNITS/ML) 5 ML SYG CATHETER ONE (15:00)
[2016-05-12] MEDS ORDERED: AMLODIPINE 5 MG TAB PO SCH (15:00)
--- NOTE | 2016-05-12 15:01 | PDOCDIS ---
Discharge Instructions DIAGNOSIS Discharge Diagnosis: 1. Metastatic ovarian cancer with soft tissue mass abdomen and pelvis CONDITION Patient Condition: Stable HOME CARE INSTRUCTIONS: Diet Instructions: Low Fat /Cholesterol FOLLOW UP/APPOINTMENTS Appointments 1. Follow up with Dr. Perez on 05/15/16 2. Follow up with Dr. Alex Carter in 1-2 weeks 3. Follow up with your primary care provider in 1 week OTHER ORDERS: Other Orders: 1. Call Dr. Perez if you have worsening abdominal pain ASH LEWIS May 12, 2016 15:01
--- NOTE | 2016-05-12 15:39 | PN ---
Date/Time of Note Date/Time of Note DATE: 05/12/16 TIME: 15:36 Assessment/Plan VTE Prophylaxis VTE Prophylaxis Intervention: LMWH Lines/Catheters IV Catheter Type (from Nrs): jamie cath Urinary Cath still in place: No Assessment/Plan Chief Complaint/Hosp Course Ovarian cancer with hernia and possible SBO and recurrence. Problems: Assessment/Plan A- doing adequately P- Given that creatinine is improving but not normal and is doing well, doubt an ongoing ID issue, concur that from my perspective can discharge and will see early in week Subjective 24 Hr Interval Summary Free Text/Dictation S- Feels better overall with less pain and OOB more. + BM no diarrhea . O Resp- clear CVS- NSR Abd- soft, appropriate tenderness, clean with KORIN output Ext- NT no edema A- doing adequately P- Given that creatinine is improving but not normal and is doing well, doubt an ongoing ID issue, concur that from my perspective can discharge and will see early in week Exam/Review of Systems Vital Signs Vitals Vital Signs Date Time Temp Pulse Resp B/P Pulse Ox O2 Delivery O2 Flow Rate FiO2 05/12/16 14:56 95 130/63 05/12/16 07:34 98.9 18 93 Intake and Output 05/11/16 05/11/16 05/12/16 15:00 23:00 07:00 Intake Total 740 ml 500 ml Balance 740 ml 500 ml Results Result Diagram: 05/12/16 0430 05/12/16 0430 Results 24 hrs Laboratory Tests Test 05/11/16 15:59 05/12/16 04:30 Lab Scanned Report BLOOD TRANSFUSION Anion Gap 12 Basophils # 0.0 Basophils % 0.1 Blood Morphology Comment Blood Urea Nitrogen 12 Calcium Level 8.3 L Carbon Dioxide Level 30 Chloride Level 102 Creatinine 1.24 H Eosinophils # 0.4 Eosinophils % 2.6 Glucose Level 92 Hematocrit 27.6 L Hemoglobin 9.3 L Lymphocytes # 1.1 Lymphocytes % 7.3 L Magnesium Level 1.3 L Mean Corpuscular Hemoglobin 30.6 Mean Corpuscular Hemoglobin Concent 33.5 Mean Corpuscular Volume 91.4 Mean Platelet Volume 9.9 Monocytes # 1.3 H Monocytes % 8.1 Neutrophils # 12.7 H Neutrophils % 81.9 H Nucleated Red Blood Cells # 0.0 Nucleated Red Blood Cells % 0.0 Phosphorus Level 3.9 Platelet Count 474 H Potassium Level 3.2 L Red Blood Count 3.03 L Red Cell Distribution Width 16.0 H Sodium Level 141 White Blood Count 15.5 H Medications Medications Current Medications Ondansetron HCl (Zofran Inj) 4 mg Q6H PRN IV NAUSEA AND/OR VOMITING Last administered on 05/10/16 23:27; Admin Dose 4 MG; Start 04/28/16 at 21:00 Clonidine (Catapres) 0.1 mg Q6H PRN PO SBP >160 Last administered on 05/06/16 08:27; Admin Dose 0.1 MG; Start 05/01/16 at 10:30 Acetaminophen/ Codeine Phosphate (Tylenol No.3) 1 tab Q6H PRN PO PAIN Last administered on 05/08/16 02:21; Admin Dose 1 TAB; Start 05/01/16 at 12:30 Clonidine HCl (Catapres-Tts 1 Patch) 1 patch Q7D TRANSDERM Last administered on 05/11/16 11:45; Admin Dose 1 PATCH; Start 05/04/16 at 12:00 Hydralazine HCl (Apresoline) 10 mg Q6H PRN IV sbp>160mmhg Last administered on 05/08/16 04:45; Admin Dose 10 MG; Start 05/06/16 at 10:00 Famotidine (Pepcid) 20 mg BID PO Last administered on 05/12/16 08:59; Admin Dose 20 MG; Start 05/07/16 at 10:00 Enoxaparin Sodium (Lovenox) 40 mg DAILY SC Last administered on 05/12/16 09:53 ; Admin Dose 40 MG; Start 05/08/16 at 09:00 Acetaminophen (Tylenol Tab) 650 mg Q6H PRN PO PAIN AND OR ELEVATED TEMP Last administered on 05/11/16 17:26; Admin Dose 650 MG; Start 05/08/16 at 04:45 Atenolol (Tenormin) 50 mg DAILY PO Last administered on 05/12/16 08:59; Admin Dose 50 MG; Start 05/09/16 at 09:00 Lactobacillus Acidophilus/ Rhamnosus (Culturelle) 1 cap BID PO Last administered on 05/12/16 08:59; Admin Dose 1 CAP; Start 05/09/16 at 09:00 Senna/Docusate Sodium (Senokot-S) 2 tab HS PO Last administered on 05/10/16 20 :57; Admin Dose 2 TAB; Start 05/09/16 at 21:00 Hydralazine HCl (Apresoline) 100 mg Q8 PO Last administered on 05/12/16 14:23 ; Admin Dose 100 MG; Start 05/09/16 at 22:00 Nifedipine (Procardia Xl) 60 mg DAILY PO Last administered on 05/12/16 08:58; Admin Dose 60 MG; Start 05/10/16 at 09:00 Amlodipine Besylate (Norvasc) 5 mg BID PO ; Start 05/12/16 at 15:00 Heparin Sodium (Porcine) (Heparin Flush (100 Units/ml)) 500 unit ONCE ONCE CATHETER ; Start 05/12/16 at 15:00; Stop 05/12/16 at 15:01 LEELA VILLANUEVA MD May 12, 2016 15:38
[2016-05-12 19:30] VITALS: BP 155/74; RESP 18
== END 2016-05-12 20:40 | disposition home or self-care (01) | DRG 329 ==
LOC: E/R 19:43 → MS1 22:42 → OBSVTOIN 04-26 14:08 → ICU 04-28 20:13 → MS1 04-30 11:24
PROVIDERS: ADMIT Internal Medicine; ATTEND Internal Medicine
PROC: 0DTS0ZZ (ICD-10-PCS; 2016-04-28)
PROC: 0DBW0ZZ Excision of Peritoneum, Open Approach (ICD-10-PCS; 2016-04-28)
PROC: 07BB0ZZ Excision of Mesenteric Lymphatic, Open Approach (ICD-10-PCS; 2016-04-28)
PROC: 07BD0ZZ Excision of Aortic Lymphatic, Open Approach (ICD-10-PCS; 2016-04-28)
PROC: 0DNG0ZZ Release Left Large Intestine, Open Approach (ICD-10-PCS; 2016-04-28)
PROC: 0DNF0ZZ Release Right Large Intestine, Open Approach (ICD-10-PCS; 2016-04-28)
PROC: 0DTN0ZZ Resection of Sigmoid Colon, Open Approach (ICD-10-PCS; principal; 2016-04-28 12:00)
DX: C78.5 Secondary malignant neoplasm of large intestine and rectum (principal); R65.11 Systemic inflammatory response syndrome (SIRS) of non-infectious origin with acute organ dysfunction; N17.0 Acute kidney failure with tubular necrosis; C78.6 Secondary malignant neoplasm of retroperitoneum and peritoneum; C79.11 Secondary malignant neoplasm of bladder; E83.42 Hypomagnesemia; C79.89 Secondary malignant neoplasm of other specified sites; C56.9 Malignant neoplasm of unspecified ovary; C78.89 Secondary malignant neoplasm of other digestive organs; K59.00 Constipation, unspecified; I10 Essential (primary) hypertension; D63.8 Anemia in other chronic diseases classified elsewhere; Z86.718 Personal history of other venous thrombosis and embolism; Z79.01 Long term (current) use of anticoagulants; Z90.710 Acquired absence of both cervix and uterus; E87.6 Hypokalemia; I16.0 Hypertensive urgency
CPT/HCPCS: 36415; 36430; 71010; 74176; 76775; 80048; 80053; 80061; 80076; 80202; 81001; 81003; 82043; 82728; 82962; 83036; 83540; 83690; 83735; 84100; 84134; 84155; 84300; 84439; 84443; 84478; 84480; 84484; 85025; 85610; 85730; 86850; 86900; 86901; 86920; 87040; 87075; 87086; 88302; 88305; 88307; 93005; 93965; 96374; 96375; 96376; 97116; 97162; 97530; 99217; J1940; A4310; G0378; J0131; J0330; J0360; J0690; J1100; J1170; J1200; J1642; J1644; J1650; J1885; J2250; J2270; J2354; J2370; J2405; J2543; J3010; J3370; J3475; J3480; J7030; J7040; J7042; J7050; J7121; P9016; P9059